=== PATIENT | female | born 1945 | race Caucasian/White ===

== ENCOUNTER → 2017-02-14 | Day surgery (SDC) | payer MEDICARE ==
[~2017-02-14] MED LIST: ALPRAZolam 0.25 MG TAB PO STA; HYDROmorphone 1 MG/ML 1 ML SYRINGE IVP STA; INSULIN LISPRO (humaLOG) 300 UNIT/3 ML VIAL SQ ONE
[2017-02-14 09:54] VITALS: TEMP 98.1
[2017-02-14 10:07] LABS: Prothrombin Time 10.4 sec (9.0-12.0)
[2017-02-14 11:37] LABS: Glucose,Whole Blood 331 mg/dL (75-99)
[2017-02-14 12:11] VITALS: RESP 20
[2017-02-14 15:14] VITALS: BP 134/59; PULSE 80
--- NOTE | 2017-02-14 15:30 | US ---
EXAMINATION TYPE: US biopsy liver DATE OF EXAM: 02/14/2017 10:42 AM Correlation with outside CT abdomen pelvis. HISTORY: Liver mass. FINDINGS: Maximal barrier technique was utilized. The skin overlying a suitable path to the patient' s mass was localized with ultrasound and the overlying skin prepped and draped. Ultrasound was utili zed with sterile technique. Lidocaine was used for local anesthesia. A skin leif was made with a sc alpel. An 18-gauge needle was advanced under direct ultrasound guidance and core specimen obtained o f the mass, an additional pass was made. Specimens submitted in formalin to Pathology. Following th e procedure, hemostasis achieved and the patient is discharged in stable condition without complicati on. Impression: status POST ULTRASOUND GUIDED CORE BIOPSY OF liver MASS, PATHOLOGY IS PENDING. THIS PROC EDURE IS PERFORMED BY THE UNDERSIGNED.
== END ==
LOC: RADPROMAIN 08:44
PROVIDERS: ATTEND Internal Medicine Medical Oncology
DX: C22.7 Other specified carcinomas of liver (principal); C18.9 Malignant neoplasm of colon, unspecified; E11.42 Type 2 diabetes mellitus with diabetic polyneuropathy; Z79.4 Long term (current) use of insulin; E78.00 Pure hypercholesterolemia, unspecified; I10 Essential (primary) hypertension; I69.354 Hemiplegia and hemiparesis following cerebral infarction affecting left non-dominant side; G47.30 Sleep apnea, unspecified; Z99.89 Dependence on other enabling machines and devices; N17.9 Acute kidney failure, unspecified; Z80.0 Family history of malignant neoplasm of digestive organs; Z79.02 Long term (current) use of antithrombotics/antiplatelets; Z79.82 Long term (current) use of aspirin; Z79.899 Other long term (current) drug therapy; Z91.040 Latex allergy status; Z88.0 Allergy status to penicillin; Z91.013 Allergy to seafood; Z88.8 Allergy status to other drugs, medicaments and biological substances; Z91.09 Other allergy status, other than to drugs and biological substances
CPT/HCPCS: 82947; 85049; 85610; 88342; 88307; 88341; 96374; 36415; 47000; 76942; J1170

== ENCOUNTER 2019-05-19 13:56 | Inpatient (IN) | payer MEDICARE ==
[2019-05-19] MEDS ORDERED: MORPHINE SULFATE 4 MG/ML SYRINGE IV STA ×2 (14:38→16:51)
--- NOTE | 2019-05-19 14:43 | ED ---
General Adult HPI - General Chief complaint: Extremity Problem,Nontraumatic Stated complaint: Right leg pain Time Seen by Provider: 05/19/19 14:03 Source: patient, RN notes reviewed, old records reviewed (Reviewed [place] record and radiology results and medications.) Mode of arrival: wheelchair Limitations: no limitations - History of Present Illness Initial comments: Patient is a pleasant 73-year-old female presenting to the emergency department as a transfer from [place]. Patient complains of right leg pain. Onset of symptoms was around 5 days ago. Symptoms have worsened today. Pain is constant. Pain increases with movement and attempting to ambulate. Patient finds it very difficult to ambulate. No fevers. Patient did go to a clinic couple of days ago and was given antibiotics for a scratch on her foot. Patient was not very concerned about the scratch and was not clear for the scratch. Patient states discomfort did start mostly of the lower extremity and extended up to the mid thigh, somewhat the hip. No chest pain or dyspnea. No fevers. - Related Data Home Medications Medication Instructions Recorded Confirmed Aspirin 81 mg PO DAILY 03/04/14 05/19/19 Carvedilol [Coreg*] 12.5 mg PO BID 03/04/14 05/19/19 Clopidogrel [Plavix] 75 mg PO DAILY 03/04/14 05/19/19 Potassium Chloride ER [K-Dur 20] 20 meq PO DAILY 03/04/14 05/19/19 Primidone [Mysoline] 50 mg PO DAILY 03/04/14 05/19/19 Cyanocobalamin (Vitamin B-12) 2,000 mcg PO DAILY 02/07/17 05/19/19 [Vitamin B-12] Spironolactone-Hctz 25-25Mg 1 tab PO DAILY 02/07/17 05/19/19 [Aldactazide 25-25 MG] metFORMIN HCL 1,000 mg PO BID 02/07/17 05/19/19 Clindamycin [Cleocin] 300 mg PO TID 05/19/19 05/19/19 Furosemide [Lasix] 40 mg PO BID 05/19/19 05/19/19 HYDROcodone/APAP 5-325MG [[place] 1 tab PO DAILY PRN 05/19/19 05/19/19 5-325] Insulin Aspart [NovoLOG] See Protocol SQ AC-TID 05/19/19 05/19/19 Insulin Detemir (Levemir) [Levemir] 36 unit SQ BID 05/19/19 05/19/19 Multivitamins, Thera [Multivitamin 1 tab PO DAILY 05/19/19 05/19/19 (formulary)] [place]-3 Fatty Acids [[place]-3] 1,000 mg PO DAILY 05/19/19 05/19/19 Vitamin C/Biotin [Hair, Skin and 1 tab PO DAILY 05/19/19 05/19/19 Nails] Allergies Allergy/AdvReac Type Severity Reaction Status Date / Time latex Allergy Rash/Hives Verified 05/19/19 14:57 levofloxacin [From Levaquin] Allergy SEVERE Verified 05/19/19 14:57 MUSCLE PAIN losartan [Losartan] Allergy Rash/Hives Verified 05/19/19 14:57 Penicillins Allergy Rash/Hives Verified 05/19/19 14:57 shellfish derived Allergy Itching Verified 05/19/19 14:57 Sulfa (Sulfonamide Allergy Rash/Hives Verified 05/19/19 14:57 Antibiotics) ADHESIVE TAPE Allergy PEELS SKIN Uncoded 05/19/19 14:06 steroids AdvReac Severe SEVERE Uncoded 05/19/19 14:06 PAIN AFTER SHE STOPS TAKING. martin AdvReac Rash/Hives Uncoded 05/19/19 14:06 Review of Systems ROS Statement: Those systems with pertinent positive or pertinent negative responses have been documented in the HPI. ROS Other: All systems not noted in ROS Statement are negative. Constitutional: Denies: fever Eyes: Denies: eye pain ENT: Denies: ear pain Respiratory: Denies: cough, dyspnea Cardiovascular: Denies: chest pain Endocrine: Denies: fatigue Gastrointestinal: Denies: abdominal pain Genitourinary: Denies: dysuria Musculoskeletal: Reports: as per HPI. Denies: back pain Skin: Denies: rash Neurological: Denies: weakness Past Medical History Past Medical History: Coronary Artery Disease (CAD), Cancer, Chest Pain / Angina, CVA/TIA, Diabetes Mellitus, Hyperlipidemia, Hypertension, Myocardial Infarction ([place]), Osteoarthritis (OA), Sleep Apnea/CPAP/BIPAP Additional Past Medical History / Comment(s): HX OF CVA WITH LEFT SIDED WEAKNESS , BALANCE PROBLEMS & HX OF FALLS., ESSSENTIAL TREMORS, USES CANE. , HX OF PERITONITIS FROM RUPTURED OVARY., NOT USING C-PAP DUE TO ALLERGIES., BACK PAIN, ANEMIA, STRESS INCONTINENCE., NEW DIAGNOSIS OF BOWEL CANCER. Last Myocardial Infarction Date:: 2007 History of Any Multi-Drug Resistant Organisms: None Reported Past Surgical History: Appendectomy, Back Surgery, Heart Catheterization With Stent, Hysterectomy, Joint Replacement, Tonsillectomy Additional Past Surgical History / Comment(s): UGO KNEE REPLACEMENT, HT STENT X1, EXPLORATORY FOR RUPTURED OVARY.ANTERIOR RESECTION Past Anesthesia/Blood Transfusion Reactions: No Reported Reaction Additional Past Anesthesia/Blood Transfusion Reaction / Comment(s): HALLUCINATIONS AFTER BACK SURGERY. STATES SHE HAD [place] DUE TO BLOOD TRANSFUSION Date of Last Stent Placement:: 02/2014 Past Psychological History: No Psychological Hx Reported, Depression Smoking Status: Former smoker Past Alcohol Use History: None Reported Past Drug Use History: None Reported - Past Family History Father Family Medical History: Cancer, Thyroid Disorder Additional Family Medical History / Comment(s): COLON CANCER, HASHIMOTOS,ENLARGED HEART Mother Family Medical History: Diabetes Mellitus, Deep Vein Thrombosis (DVT), Thyroid Disorder Additional Family Medical History / Comment(s): HASHIMOTOS Sister(s) Family Medical History: Cancer, Congestive Heart Failure (CHF) Additional Family Medical History / Comment(s): BREAST CANCER Brother(s) Family Medical History: Cancer Additional Family Medical History / Comment(s): COLON CANCER General Exam Limitations: no limitations General appearance: alert, in no apparent distress Head exam: Present: atraumatic Eye exam: Present: normal appearance Neck exam: Present: normal inspection Respiratory exam: Present: normal lung sounds bilaterally Cardiovascular Exam: Present: regular rate, normal rhythm Expanded Peripheral pulses: 2+: Dorsalis Pedis (R), Dorsalis Pedis (L) GI/Abdominal exam: Present: soft. Absent: tenderness Extremities exam: Present: other (Patient does have tenderness majority of right lower leg and extends to the posterior mid thigh. No significant change in size from the left side. There may be a very faint amount of erythema of the medial calf region. Cap refill less than 2 seconds. Sensation intact. Strength intact. Minimal bony tenderness right lateral hip. Majority of tenderness is soft tissue.) Back exam: Present: normal inspection Neurological exam: Present: alert. Absent: motor sensory deficit Psychiatric exam: Present: normal affect, normal mood Skin exam: Present: erythema (Minimal erythema right medial calf region) Course Vital Signs 05/19/19 05/19/19 05/19/19 14:02 15:49 18:47 Temperature 99 F 97.6 F 98.8 F Pulse Rate 80 77 72 Respiratory 16 18 18 Rate Blood Pressure 116/73 116/68 119/88 O2 Sat by Pulse 94 L 93 L 94 L Oximetry - Reevaluation(s) Reevaluation #1: 05/19/19 16:49 Patient still complain of discomfort. Ultrasound negative for DVT. Family updated. Case was discussed with Dr. charles, who agrees with computed tomography scan and would like to see results prior to considering admission. 05/19/19 19:36 Patient reevaluated. Patient and family updated. Case was discussed with Dr. Jacinto, who will admit for observation for pain control and does recommend antibiotics. He will come evaluate patient. Medical Decision Making - Lab Data Result diagrams: 05/19/19 14:30 05/19/19 14:30 Lab Results 05/19/19 05/19/19 Range/Units 14:30 14:30 WBC 9.6 (3.8-10.6) k/uL RBC 3.97 (3.80-5.40) m/uL Hgb 12.4 (11.4-16.0) gm/dL Hct 38.3 (34.0-46.0) % MCV 96.5 (80.0-100.0) fL MCH 31.3 (25.0-35.0) pg MCHC 32.4 (31.0-37.0) g/dL RDW 15.6 H (11.5-15.5) % Plt Count 255 (150-450) k/uL Neutrophils % 75 % Lymphocytes % 16 % Monocytes % 6 % Eosinophils % 2 % Basophils % 0 % Neutrophils # 7.1 (1.3-7.7) k/uL Lymphocytes # 1.5 (1.0-4.8) k/uL Monocytes # 0.6 (0-1.0) k/uL Eosinophils # 0.2 (0-0.7) k/uL Basophils # 0.0 (0-0.2) k/uL Sodium 137 (137-145) mmol/L Potassium 3.0 L (3.5-5.1) mmol/L Chloride 88 L (98-107) mmol/L Carbon Dioxide 34 H (22-30) mmol/L Anion Gap 15 mmol/L BUN 49 H (7-17) mg/dL Creatinine 1.59 H (0.52-1.04) mg/dL Est GFR (CKD-EPI)AfAm 37 (>60 ml/min/1.73 sqM) Est GFR (CKD-EPI)NonAf 32 (>60 ml/min/1.73 sqM) Glucose 287 H (74-99) mg/dL Uric Acid 14.5 H (3.7-7.4) mg/dL Calcium 10.3 H (8.4-10.2) mg/dL Total Bilirubin 0.8 (0.2-1.3) mg/dL AST 28 (14-36) U/L ALT 30 (9-52) U/L Alkaline Phosphatase 118 (38-126) U/L Total Protein 7.6 (6.3-8.2) g/dL Albumin 4.6 (3.5-5.0) g/dL - Radiology Data Radiology results: report reviewed (Ultrasound negative for DVT. Computed tomography scan of the lower extremity does mild to moderate subcutaneous edema along the lateral malleolus with mild edema along the medial malleolus. Mild edema of the hindfoot) Disposition Clinical Impression: Leg pain, Cellulitis Disposition: ADMITTED IP TO THIS HOSP Is patient prescribed a controlled substance at d/c from ED?: No Referrals: David Hogan MD [Primary Care Provider] - 1-2 days Decision Time: 19:45
--- NOTE | 2019-05-19 15:31 | US ---
EXAMINATION TYPE: US venous doppler duplex LE RT DATE OF EXAM: 05/19/2019 3:20 PM COMPARISON: NONE CLINICAL HISTORY: Pain. Right leg pain and swelling SIDE PERFORMED: Right TECHNIQUE: The lower extremity deep venous system is examined utilizing real time linear array sonog katie with graded compression, doppler sonography and color-flow sonography. VESSELS IMAGED: External Iliac Vein (EIV) Common Femoral Vein Deep Femoral Vein Greater Saphenous Vein * Femoral Vein Popliteal Vein Small Saphenous Vein * Proximal Calf Veins (* superficial vessels) Right Leg: Negative for DVT Grayscale, color doppler, spectral doppler imaging performed of the deep veins of the right lower ext remity. There is normal flow, compressibility, vascular waveforms. IMPRESSION: No ultrasound evidence for acute DVT in the right lower extremity.
[2019-05-19] MEDS ORDERED: diphenhydrAMINE 50 MG/ML 1 ML VIAL IVP STA (16:49)
[2019-05-19] MEDS ORDERED: SODIUM CHLORIDE 0.9% 1,000 ML IV STA (16:49)
[2019-05-19] MEDS ORDERED: FAMOTIDINE 20 MG/2 ML VIAL IV STA (16:49)
[2019-05-19] MEDS ORDERED: methylPREDNISolone SOD SUCCI 125 MG/2 ML VIAL IV STA (16:49)
[2019-05-19 17:08] LABS: Basophils % (A) 0 %; Eosinophils # (A) 0.2 k/uL (0-0.7); Eosinophils % (A) 2 %; HCT 38.3 % (34.0-46.0); HGB 12.4 gm/dL (11.4-16.0); Lymphocytes # (A) 1.5 k/uL (1.0-4.8); Lymphocytes % (A) 16 %; MCH 31.3 pg (25.0-35.0); MCHC 32.4 g/dL (31.0-37.0); MCV 96.5 fL (80.0-100.0); Mean Platelet Volume 7.4; Monocytes # (A) 0.6 k/uL (0-1.0); Monocytes % (A) 6 %; Neutrophils # (A) 7.1 k/uL (1.3-7.7); Neutrophils % (A) 75 %; Platelet Count 255 k/uL (150-450); RBC 3.97 m/uL (3.80-5.40); RDW 15.6 % (11.5-15.5); WBC 9.6 k/uL (3.8-10.6)
[2019-05-19 17:40] LABS: Albumin 4.6 g/dL (3.5-5.0); Calcium 10.3 mg/dL (8.4-10.2); Total Bilirubin 0.8 mg/dL (0.2-1.3); Total Protein 7.6 g/dL (6.3-8.2); Uric Acid 14.5 mg/dL (3.7-7.4)
[2019-05-19] MEDS ORDERED: HYDROmorphone 1 MG/ML 1 ML SYRINGE IVP STA (18:37)
--- NOTE | 2019-05-19 19:07 | CT ---
EXAMINATION TYPE: CT lower extremity RT wo con DATE OF EXAM: 05/19/2019 COMPARISON: None. HISTORY: RIGHT LEG SWELLING AND REDNESS, CT DLP: 1694.9 mGycm Automated exposure control for dose reduction was used. FINDINGS: CT of the right lower extremity is performed from hip to ankle. Metallic hardware from total right kn ee arthroplasty causes streak artifact limiting evaluation at this level. No suspicious surrounding l ucency identified. Moderate axial joint space loss with mild acetabular spurring is seen in the right hip. Right ankle joint felt within normal limits. No suspicious bony destruction. Muscle bulk in the right lower extremity is fairly well maintained. No concerning focal fluid collect ion is present. Mild to moderate subcutaneous edema along the lateral malleolus with mild edema along the medial malleolus. Mild edema visualized hindfoot along inferior calcaneus. IMPRESSION: As above.
[2019-05-19] MEDS ORDERED: NALOXONE 0.4 MG/ML 1 ML VIAL IV PRN (19:46)
[2019-05-19] MEDS ORDERED: POTASSIUM CHLORIDE ER 20 MEQ TAB.ER PO STA (19:58)
[2019-05-19] MEDS ORDERED: CLINDAMYCIN 600 MG in DEXTROSE 5% IN WATER 50 ML IVPB SCH ×2 (20:00)
[2019-05-19 20:31] LABS: C Reactive Protein 177.3 mg/L (<10.0)
[2019-05-19] MEDS: SODIUM CHLORIDE 0.9% 1,000 ML IV SCH (21:20)
--- NOTE | 2019-05-19 22:34 | P.HPIM ---
History of Present Illness H&P Date: 05/19/19 Chief Complaint: right foot pain 73 year old female with metastatic colon cancer s/p chemotherapy , long standing Insulin dependant DM, hypertension Presented today as a transfer from [facility] to rule out DVT due to positive D dimer. patient has had right foot pain for >5 days now getting worse, described as sharp pain with walking or weight bearing over the bottom of her foot and the dorsal aspect of her foot, but pain started radiating over the back of her leg all the way to her thigh and hip. pain worse in the morning first thing when she gets up, denies any reliving factors. this has never happened before and she denies any injuries Patient reports that pain started on Tuesday in the morning it was hurting over the right foot described the pain as 6 out of 10 in severity involving only the right foot from the bottom and top she rested all day avoided weightbearing next day she felt that both feet are hurting now 8 out of 10 in severity sharp pain worse with weightbearing and walking she started using a cane however she was able to go shopping that day pain got worse by the time she got back home she couldn't sleep all night and patient decided to go to walk-in clinic where they found an abrasion over the sole of the left foot for which they gave her antibiotics however at that point her pain was only in the right foot she took couple doses and then stopped it she didn't feel that she needs antibiotics she denies any fevers or chills denies any drainage denies any injury to the foot. Since the pain is mainly in the right foot described as 8 out of 10 in severity waxes and wanes now radiating over the back of the leg up to the thigh and hip patient has chronic numbness over bilateral legs never took any medications for neuropathy she can move her foot fine but cannot weight-bear or stand she describes the pain as throbbing in nature 8 out of 10 in severity mainly over the right foot from both top and bottom no specific spot. Of maximum intensity. Never had similar pain before denies any injuries or walking long distances. Today she woke up from sleep got up and collapsed immediately due to severe pain went to [facility] refund positive d-dimer for which she transferred her to our facility to rule out DVT. The only incident that she recalls that the night before the pain started was a very hot night returned on the before meals all night she had her foot exposed and woke up feeling that the foot is really cold and that's when the pain started. In the ED workup came back showing acute kidney injury and hypokalemia creatine kinase was unremarkable. She had elevated C-reactive protein no leukocytosis patient received a dose of clindamycin in the ED. Computed tomography scan of the leg was nonspecific. Venous ultrasound of the right lower extremity showed no acute DVT Review of Systems Pertinent positives as noted in HPI. All other systems were reviewed and are negative Past Medical History Past Medical History: Coronary Artery Disease (CAD), Cancer, Chest Pain / Angina, CVA/TIA, Diabetes Mellitus, Hyperlipidemia, Hypertension, Myocardial Infarction ([place]), Osteoarthritis (OA), Sleep Apnea/CPAP/BIPAP Additional Past Medical History / Comment(s): HX OF CVA WITH LEFT SIDED WEAKNESS , BALANCE PROBLEMS & HX OF FALLS., ESSSENTIAL TREMORS, USES CANE. , HX OF PERITONITIS FROM RUPTURED OVARY., NOT USING C-PAP DUE TO ALLERGIES., BACK PAIN, ANEMIA, STRESS INCONTINENCE., NEW DIAGNOSIS OF BOWEL CANCER. Last Myocardial Infarction Date:: 2007 History of Any Multi-Drug Resistant Organisms: None Reported Past Surgical History: Appendectomy, Back Surgery, Heart Catheterization With Stent, Hysterectomy, Joint Replacement, Tonsillectomy Additional Past Surgical History / Comment(s): UGO KNEE REPLACEMENT, HT STENT X1, EXPLORATORY FOR RUPTURED OVARY.ANTERIOR RESECTION Past Anesthesia/Blood Transfusion Reactions: No Reported Reaction Additional Past Anesthesia/Blood Transfusion Reaction / Comment(s): HALLUCINATIONS AFTER BACK SURGERY. STATES SHE HAD [place] DUE TO BLOOD TRANSFUSION Date of Last Stent Placement:: 02/2014 Past Psychological History: No Psychological Hx Reported, Depression Smoking Status: Former smoker Past Alcohol Use History: None Reported Past Drug Use History: None Reported - Past Family History Father Family Medical History: Cancer, Thyroid Disorder Additional Family Medical History / Comment(s): COLON CANCER, HASHIMOTOS,ENLARGED HEART Mother Family Medical History: Diabetes Mellitus, Deep Vein Thrombosis (DVT), Thyroid Disorder Additional Family Medical History / Comment(s): HASHIMOTOS Sister(s) Family Medical History: Cancer, Congestive Heart Failure (CHF) Additional Family Medical History / Comment(s): BREAST CANCER Brother(s) Family Medical History: Cancer Additional Family Medical History / Comment(s): COLON CANCER Medications and Allergies Home Medications Medication Instructions Recorded Confirmed Type Aspirin 81 mg PO DAILY 03/04/14 05/19/19 History Carvedilol [Coreg*] 12.5 mg PO BID 03/04/14 05/19/19 History Clopidogrel [Plavix] 75 mg PO DAILY 03/04/14 05/19/19 History Potassium Chloride ER [K-Dur 20] 20 meq PO DAILY 03/04/14 05/19/19 History Primidone [Mysoline] 50 mg PO DAILY 03/04/14 05/19/19 History Cyanocobalamin (Vitamin B-12) 2,000 mcg PO DAILY 02/07/17 05/19/19 History [Vitamin B-12] Spironolactone-Hctz 25-25Mg 1 tab PO DAILY 02/07/17 05/19/19 History [Aldactazide 25-25 MG] metFORMIN HCL 1,000 mg PO BID 02/07/17 05/19/19 History Clindamycin [Cleocin] 300 mg PO TID 05/19/19 05/19/19 History Furosemide [Lasix] 40 mg PO BID 05/19/19 05/19/19 History HYDROcodone/APAP 5-325MG [[place] 1 tab PO DAILY PRN 05/19/19 05/19/19 History 5-325] Insulin Aspart [NovoLOG] See Protocol SQ AC-TID 05/19/19 05/19/19 History Insulin Detemir (Levemir) [Levemir] 36 unit SQ BID 05/19/19 05/19/19 History Multivitamins, Thera [Multivitamin 1 tab PO DAILY 05/19/19 05/19/19 History (formulary)] [place]-3 Fatty Acids [[place]-3] 1,000 mg PO DAILY 05/19/19 05/19/19 History Vitamin C/Biotin [Hair, Skin and 1 tab PO DAILY 05/19/19 05/19/19 History Nails] Allergies Allergy/AdvReac Type Severity Reaction Status Date / Time latex Allergy Rash/Hives Verified 05/19/19 14:57 levofloxacin [From Levaquin] Allergy SEVERE Verified 05/19/19 14:57 MUSCLE PAIN losartan [Losartan] Allergy Rash/Hives Verified 05/19/19 14:57 Penicillins Allergy Rash/Hives Verified 05/19/19 14:57 shellfish derived Allergy Itching Verified 05/19/19 14:57 Sulfa (Sulfonamide Allergy Rash/Hives Verified 05/19/19 14:57 Antibiotics) ADHESIVE TAPE Allergy PEELS SKIN Uncoded 05/19/19 14:06 steroids AdvReac Severe SEVERE Uncoded 05/19/19 14:06 PAIN AFTER SHE STOPS TAKING. martin AdvReac Rash/Hives Uncoded 05/19/19 14:06 Physical Exam Vitals: Vital Signs Temp Pulse Resp BP Pulse Ox 05/19/19 19:56 99.0 F 78 16 164/87 99 05/19/19 18:47 98.8 F 72 18 119/88 94 L 05/19/19 15:49 97.6 F 77 18 116/68 93 L 05/19/19 14:02 99 F 80 16 116/73 94 L Intake and Output 05/19/19 05/19/19 05/19/19 06:59 14:59 22:59 Other: Weight 131.542 kg Constitutional: No acute distress, conversant, pleasant Eyes: Anicteric sclerae, moist conjunctiva, no lid-lag Pupils equal round reactive to light ENMT: NC/AT Oropharynx clear, no erythema, or exudates Neck: Supple, FROM, no masses, or JVD No carotid bruits No thyromegaly Lungs: Clear to auscultation Clear to percussion Normal respiratory effort, no accessory muscle use Cardiovascular: Heart regular in rate and rhythm, Systolic murmurs, no gallops, or rubs No peripheral edema Abdominal: Soft Nontender, no guarding, rebound or rigidity Abdomen moving with respiration Normoactive bowel sounds No hepatomegaly, No splenomegaly No palpable mass No abdominal wall hernia noted Skin: Palpable port over the left anterior chest under the skin Normal temperature, tone, texture, turgor No induration No subcutaneous nodules No rash, lesions No ulcers Extremities: Multiple point tenderness over the sole of the right foot, could not definitely rule out Castellanos's neuroma No digital cyanosis No clubbing Pedal pulses intact and symmetrical Radial pulses intact and symmetrical No calf tenderness Psychiatric: Alert and oriented to person, place and time Depressed affect fair judgment Neuro Muscles Strength 4/5 in all 4 extremities Sensation to light touch grossly present throughout Cranial nerves II-XII grossly intact No focal sensory deficits Straight leg raising was negative Lymphatics: no palpable cervical or supraclavicular , or inguinal lymph nodes Results CBC & Chem 7: 05/19/19 14:30 05/19/19 14:30 Labs: Abnormal Lab Results - Last 24 Hours (Table) 05/19/19 05/19/19 05/19/19 Range/Units 14:30 14:30 14:30 RDW 15.6 H (11.5-15.5) % Potassium 3.0 L (3.5-5.1) mmol/L Chloride 88 L (98-107) mmol/L Carbon Dioxide 34 H (22-30) mmol/L BUN 49 H (7-17) mg/dL Creatinine 1.59 H (0.52-1.04) mg/dL Glucose 287 H (74-99) mg/dL Uric Acid 14.5 H (3.7-7.4) mg/dL Calcium 10.3 H (8.4-10.2) mg/dL Creatine Kinase 219 H (30-135) U/L C-Reactive Protein 177.3 H (<10.0) mg/L Assessment and Plan Assessment: 73-year-old female with history of CHF, diabetes, metastaticcolon cancer, admitted under observation with anticipated length of stay less than 48 hours due to intractable pain of her right leg which is thought due to peripheral neuropathy versus plantar fasciitis we'll attempt pain control and consider referral to podiatry in the morningupon discharge Plan: intractable right foot pain diffrential include castellanos neuroma, vs plantar fasciitis , vs peripheral neuropathy pain control observation over night referral to podiatry check CK monitor vital signs for any sings of fever or systemic response started on neurontin could not start NSAID due to SILVER Patient received a dose of clindamycin in the ED I will discontinue antibiotics at this time acute kidney injury pre renal ATN most likely avoid nephrotoxic meds hold diuretics IVF hydration hypokalemia replace and follow up level follow up Mg chronic conditions hypertension , continue home meds DM, insulin sliding scale CHF metastatic colon cancer chronic anemia asthma continue home meds DVT pPx , heparin sc tid PT evaluation follow up labs CODE STATUS:full code Discussed with: Patient, ER, RN Anticipated discharge: <[address]: home A total of 60 minutes was spent on the care of this complex patient more than 50% of the time was spent in counseling and care coordination.
[2019-05-19 23:08] VITALS: BMI 44.1
[2019-05-19 23:12] LABS: Glucose,Whole Blood 585 mg/dL (75-99)
[2019-05-19] MEDS: HEPARIN SODIUM,PORCINE 5,000 UNIT/ML 1 ML VIAL SQ SCH (23:15)
[2019-05-19] MEDS: CARVEDILOL 12.5 MG TAB PO SCH (23:15)
[2019-05-19] MEDS: INSULIN DETEMIR (LEVEMIR) 100 UNIT/ML SYR SQ SCH (23:15)
[2019-05-19] MEDS: GABAPENTIN 300 MG CAP PO SCH (23:15)
[2019-05-19] MEDS ORDERED: INSULIN ASPART (NovoLOG) 100 UNIT/ML VIAL SQ ONE (23:31)
[2019-05-20] MEDS: HYDROmorphone 1 MG/ML 1 ML SYRINGE IVP PRN ×2 (02:00→07:28)
[2019-05-20 02:06] LABS: Glucose,Whole Blood 599 mg/dL (75-99)
[2019-05-20 02:06] LABS: Glucose,Whole Blood 587 mg/dL (75-99)
[2019-05-20] MEDS ORDERED: INSULIN ASPART (NovoLOG) 100 UNIT/ML VIAL SQ ONE (02:12)
[2019-05-20 05:28] LABS: Glucose,Whole Blood 462 mg/dL (75-99)
[2019-05-20 07:10] LABS: Glucose,Whole Blood 441 mg/dL (75-99)
[2019-05-20 07:25] LABS: Basophils % (A) 0 %; Eosinophils % (A) 0 %; HGB 10.8 gm/dL (11.4-16.0); Lymphocytes # (A) 1.2 k/uL (1.0-4.8); Lymphocytes % (A) 15 %; MCH 31.4 pg (25.0-35.0); MCHC 31.8 g/dL (31.0-37.0); MCV 98.9 fL (80.0-100.0); Macrocytosis Slight; Mean Platelet Volume 7.5; Monocytes # (A) 0.4 k/uL (0-1.0); Monocytes % (A) 5 %; Neutrophils # (A) 6.3 k/uL (1.3-7.7); Neutrophils % (A) 78 %; Platelet Count 227 k/uL (150-450); RBC 3.44 m/uL (3.80-5.40); RDW 15.7 % (11.5-15.5)
[2019-05-20] MEDS: HEPARIN SODIUM,PORCINE 5,000 UNIT/ML 1 ML VIAL SQ SCH ×3 (07:27→23:29)
[2019-05-20] MEDS: ASPIRIN 81 MG PO SCH (07:27)
[2019-05-20] MEDS: CLOPIDOGREL 75 MG TAB PO SCH (07:27)
[2019-05-20] MEDS: CARVEDILOL 12.5 MG TAB PO SCH ×2 (07:27→17:09)
[2019-05-20] MEDS: POTASSIUM CHLORIDE ER 20 MEQ TAB.ER PO SCH (07:28)
[2019-05-20] MEDS: PRIMIDONE 50 MG TAB PO SCH (07:28)
[2019-05-20 07:34] LABS: Albumin 3.7 g/dL (3.5-5.0); Potassium 4.2 mmol/L (3.5-5.1); Total Bilirubin 0.5 mg/dL (0.2-1.3); Total Protein 6.4 g/dL (6.3-8.2)
[2019-05-20] MEDS: INSULIN DETEMIR (LEVEMIR) 100 UNIT/ML SYR SQ SCH ×2 (07:41→20:31)
[2019-05-20] MEDS: PANTOPRAZOLE 40 MG/10 ML VIAL IV SCH (07:42)
[2019-05-20] MEDS: INSULIN ASPART (NovoLOG) 100 UNIT/ML VIAL SQ SCH ×4 (07:42→20:30)
[2019-05-20] MEDS: SODIUM CHLORIDE 0.9% 1,000 ML IV SCH ×3 (07:47→19:43)
[2019-05-20 09:21] LABS: Uric Acid 14.2 mg/dL (3.7-7.4)
--- NOTE | 2019-05-20 09:35 | P.PN ---
Subjective Progress Note Date: 05/20/19 Patient reports that she is feeling better today after being started on some medication to control her right lower extremity/foot pain. Patient stated when she stood up today she did not felt the severe pain in her right foot which she always felt for the past 8-9 months and which has gotten worse in the past week or so. Patient did complain of having some burning on urination but denied frequency, urgency of urination and denied fever chills. During the conversation patient started weeping and stating that she has gone through a lot of stress lately and was mentioning including but not limiting to her son's divorce and her cancer with metastasis to the liver and being on chemotherapy for it. Patient had multiple other stressors which she mentioned and was crying. She stated that she sees a group where she gets benefit from her stresses. Patient denies chest pain, palpitation, diaphoresis, nausea, vomiting, headaches, dizziness and denies rest of the review of system. On review of patient's blood work it was noted that patient blood sugar is now slightly getting better and gait he is under 500. Her acute kidney injury which was noted to have BUN 49 and creatinine 1.59 and today after IV hydration and holding oral Lasix is 53/1.52 respectively. Objective - Vital Signs Vital signs: Vital Signs Temp 98.7 F 05/20/19 07:58 Pulse 77 05/20/19 07:58 Resp 17 05/20/19 07:58 BP 116/60 05/20/19 07:58 Pulse Ox 93 L 05/20/19 07:58 Intake & Output 05/19/19 05/20/19 05/20/19 18:59 06:59 18:59 Intake Total 1590 400 Balance 1590 400 Weight 131.542 kg Intake: Intake, IV Titration 1000 Amount Sodium Chloride 0.9% 1, 1000 000 ml @ 125 mls/hr IV . Q8H [facility] Rx#:[id number] Oral 590 400 Other: Voiding Method Toilet Toilet Bedside Commode Bedside Commode # Voids 1 - Constitutional General appearance: Present: cooperative, no acute distress - EENT Eyes: Present: EOMI, normal appearance ENT: Present: hearing grossly normal, NA/AT - Neck Neck: Present: normal ROM. Absent: lymphadenopathy, stridor - Respiratory Respiratory: bilateral: CTA, negative: rales, rhonchi, wheezing - Cardiovascular Rhythm: regular Heart sounds: normal: S1, S2 Abnormal Heart Sounds: Present: systolic murmur - Gastrointestinal General gastrointestinal: Present: normal bowel sounds, soft. Absent: distended, rigid, tenderness - Psychiatric Psychiatric Comment(s): Patient appears depressed and was weeping during the interview. Psychiatric: Present: A&O x's 3, intact judgment & insight - Allied health notes Allied health notes reviewed: nursing - Labs CBC & Chem 7: 05/20/19 06:47 05/20/19 06:47 Labs: Abnormal Lab Results - Last 24 Hours (Table) 05/19/19 05/19/19 05/19/19 Range/Units 14:30 14:30 14:30 RBC (3.80-5.40) m/uL Hgb (11.4-16.0) gm/dL RDW 15.6 H (11.5-15.5) % Sodium (137-145) mmol/L Potassium 3.0 L (3.5-5.1) mmol/L Chloride 88 L (98-107) mmol/L Carbon Dioxide 34 H (22-30) mmol/L BUN 49 H (7-17) mg/dL Creatinine 1.59 H (0.52-1.04) mg/dL Glucose 287 H (74-99) mg/dL POC Glucose (mg/dL) (75-99) mg/dL Uric Acid 14.5 H (3.7-7.4) mg/dL Calcium 10.3 H (8.4-10.2) mg/dL Creatine Kinase 219 H (30-135) U/L C-Reactive Protein 177.3 H (<10.0) mg/L 05/19/19 05/20/19 05/20/19 Range/Units 23:10 02:02 02:04 RBC (3.80-5.40) m/uL Hgb (11.4-16.0) gm/dL RDW (11.5-15.5) % Sodium (137-145) mmol/L Potassium (3.5-5.1) mmol/L Chloride (98-107) mmol/L Carbon Dioxide (22-30) mmol/L BUN (7-17) mg/dL Creatinine (0.52-1.04) mg/dL Glucose (74-99) mg/dL POC Glucose (mg/dL) 585 H 599 H 587 H (75-99) mg/dL Uric Acid (3.7-7.4) mg/dL Calcium (8.4-10.2) mg/dL Creatine Kinase (30-135) U/L C-Reactive Protein (<10.0) mg/L 05/20/19 05/20/19 05/20/19 Range/Units 05:27 06:47 06:47 RBC 3.44 L (3.80-5.40) m/uL Hgb 10.8 L (11.4-16.0) gm/dL RDW 15.7 H (11.5-15.5) % Sodium 135 L (137-145) mmol/L Potassium (3.5-5.1) mmol/L Chloride 94 L (98-107) mmol/L Carbon Dioxide 31 H (22-30) mmol/L BUN 53 H (7-17) mg/dL Creatinine 1.52 H (0.52-1.04) mg/dL Glucose 456 H (74-99) mg/dL POC Glucose (mg/dL) 462 H (75-99) mg/dL Uric Acid (3.7-7.4) mg/dL Calcium (8.4-10.2) mg/dL Creatine Kinase (30-135) U/L C-Reactive Protein (<10.0) mg/L 05/20/19 Range/Units 07:03 RBC (3.80-5.40) m/uL Hgb (11.4-16.0) gm/dL RDW (11.5-15.5) % Sodium (137-145) mmol/L Potassium (3.5-5.1) mmol/L Chloride (98-107) mmol/L Carbon Dioxide (22-30) mmol/L BUN (7-17) mg/dL Creatinine (0.52-1.04) mg/dL Glucose (74-99) mg/dL POC Glucose (mg/dL) 441 H (75-99) mg/dL Uric Acid (3.7-7.4) mg/dL Calcium (8.4-10.2) mg/dL Creatine Kinase (30-135) U/L C-Reactive Protein (<10.0) mg/L - Imaging and Cardiology Venous US: report reviewed Assessment and Plan (1) Leg pain Current Visit: Yes Status: Acute Code(s): M79.606 - PAIN IN LEG, UNSPECIFIED SNOMED Code(s): 09953993 (2) Acute renal failure (ARF) Current Visit: Yes Status: Acute Priority: High Code(s): N17.9 - ACUTE KIDNEY FAILURE, UNSPECIFIED SNOMED Code(s): 08948120 (3) Diabetes mellitus type 2 in obese Current Visit: Yes Status: Acute Priority: High Code(s): E11.69 - TYPE 2 DIABETES MELLITUS WITH OTHER SPECIFIED COMPLICATION; E66.9 - OBESITY, UNSPECIFIED SNOMED Code(s): 05853831 (4) Hyperuricemia Current Visit: Yes Status: Acute Priority: High Code(s): E79.0 - HYPERURICEMIA W/O SIGNS OF INFLAM ARTHRIT AND TOPHACEOUS DIS SNOMED Code(s): 58694982 (5) Dependent edema Current Visit: Yes Status: Acute Priority: High Code(s): R60.9 - EDEMA, UNSPECIFIED SNOMED Code(s): 279046519 (6) Heart failure with preserved ejection fraction Current Visit: No Status: Acute Priority: Medium Code(s): I50.30 - UNSPECIFIED DIASTOLIC (CONGESTIVE) HEART FAILURE SNOMED Code(s): 343244899 (7) Colon cancer Current Visit: No Status: Acute Priority: Medium Code(s): C18.9 - MALIGNAN T NEOPLASM OF COLON, UNSPECIFIED SNOMED Code(s): 811978874 Plan: Patient right foot pain is improving with Neurontin in place. She is able to walk without severe pain and it was recommended to her to continue activity as tolerated. I will continue Neurontin at the time of discharge. Patient was counseled regarding coping with her depression and stressors in life and recommended mental health consultation which she accepted. We will consult psychiatry for the management of depression. Patient's renal function is not getting better despite of IV hydration and holding her diuretics. I will consult nephrology for their input in patient's renal condition. I will continue IV hydration for now patient's most recent echo was reported to have 55-60% ejection fraction and severe left atrial dilatation with mitral stenosis. I will check patient's uric acid level and magnesium level again. Patient did reported that her pain is going on for more than 8-9 months in her right leg and foot but nobody was paying attention and now since this new medication is a started her pain is getting better and she is much relieved. Patient blood sugar was monitored and sliding scale insulin was continued. Patient's sugars are slightly getting better she did receive 1 dose of methylprednisolone last night and her sugars were around 600 which is now improving. Patient hemoglobin was 12.4 at the time of admission and now 10.8 after IV hydration will monitor it. I will continue other medication as it is. Patient did complain of burning in urination for which urine analysis and culture and sensitivity if indicated will be sent. If patient continues to improve then patient will be discharged tomorrow on oral pain management with Neurontin. Time with Patient: Greater than 30 (Total time spent 45 minutes, more than 50% time was spent in counseling to overcome her depression and to seek help.)
[2019-05-20 11:23] LABS: Glucose,Whole Blood 413 mg/dL (75-99)
[2019-05-20 13:19] LABS: Appearance,Urine Cloudy (Clear); Bilirubin,Urine Negative (Negative); Blood,Urine Moderate (Negative); Color,Urine Yellow; Glucose,Urine (UA) 4+ (Negative); Ketones,Urine Negative (Negative); Leukocyte Esterase,Urine Large (Negative); Nitrite,Urine Negative (Negative); Protein,Urine 1+ (Negative); RBC,Urine 19 /hpf (0-5); Specific Gravity,Urine 1.019 (1.001-1.035); Squamous Epithelial Cell,Urine 1 /hpf (0-4); Urobilinogen,Urine <2.0 mg/dL (<2.0); WBC,Urine >182 /hpf (0-5)
[2019-05-20 16:55] LABS: Glucose,Whole Blood 249 mg/dL (75-99)
[2019-05-20 20:05] LABS: Glucose,Whole Blood 189 mg/dL (75-99)
[2019-05-20] MEDS: GABAPENTIN 300 MG CAP PO SCH (20:30)
[2019-05-21] MEDS: HYDROmorphone 1 MG/ML 1 ML SYRINGE IVP PRN ×2 (05:18→13:00)
[2019-05-21 06:48] LABS: Glucose,Whole Blood 142 mg/dL (75-99)
[2019-05-21] MEDS: CLOPIDOGREL 75 MG TAB PO SCH (07:34)
[2019-05-21] MEDS: HEPARIN SODIUM,PORCINE 5,000 UNIT/ML 1 ML VIAL SQ SCH ×2 (07:34→17:54)
[2019-05-21] MEDS: ASPIRIN 81 MG PO SCH (07:34)
[2019-05-21] MEDS: POTASSIUM CHLORIDE ER 20 MEQ TAB.ER PO SCH (07:34)
[2019-05-21] MEDS: PANTOPRAZOLE 40 MG/10 ML VIAL IV SCH (07:34)
[2019-05-21] MEDS: CARVEDILOL 12.5 MG TAB PO SCH ×2 (07:34→17:54)
[2019-05-21] MEDS: INSULIN ASPART (NovoLOG) 100 UNIT/ML VIAL SQ SCH ×4 (07:35→21:23)
[2019-05-21] MEDS: INSULIN DETEMIR (LEVEMIR) 100 UNIT/ML SYR SQ SCH ×2 (07:35→21:23)
[2019-05-21] MEDS: PRIMIDONE 50 MG TAB PO SCH (07:36)
[2019-05-21] MEDS: SODIUM CHLORIDE 0.9% 1,000 ML IV SCH (07:49)
[2019-05-21] MEDS ORDERED: FUROSEMIDE 10 MG/ML 2 ML VIAL IV ONE (09:29)
--- NOTE | 2019-05-21 09:34 | P.PN ---
Subjective Progress Note Date: 05/21/19 Today patient reports that she is not feeling better she is having pain all over the body and she is not ready to go home nor is willing to go home. Patient stated that she came for this issues of pain all over the body and pain of her feet she is able to walk better as her feet pain is slightly better but her rest of the pain is continuously there. Patient was weeping again during the interview today. She stated that psychiatrist has not seen her as of now. Patient also stated that she had gained 14 pounds weight since she had weighed her last about a week to 10 days ago. Patient was seen by the content architect Dr. Pete and his recommendations were appreciated. Patient denies chest pain, palpitation, headache, dizziness, nausea, vomiting she did complains of the chronic constipation and requests something to relieve her it but denies rest of the review system. Objective - Vital Signs Vital signs: Vital Signs Temp 97.5 F L 05/21/19 05:00 Pulse 65 05/21/19 05:00 Resp 16 05/21/19 05:00 BP 148/80 05/21/19 05:00 Pulse Ox 95 05/21/19 05:00 Intake & Output 05/20/19 05/21/19 05/21/19 18:59 06:59 18:59 Intake Total 800 840 Output Total 600 Balance 200 840 Intake: Intake, IV Titration 250 Amount Sodium Chloride 0.9% 1, 250 000 ml @ 125 mls/hr IV . Q8H [facility] Rx#:[id number] Oral 800 590 Output: Urine 600 Other: Voiding Method Toilet Toilet Bedside Commode Bedside Commode # Voids 2 3 - Constitutional General appearance: Present: cooperative, mild distress (Due to pain all over the body as felt by her.) - EENT Eyes: Present: EOMI, normal appearance - Neck Neck: Present: normal ROM. Absent: lymphadenopathy, rigidity - Respiratory Respiratory: bilateral: CTA, negative: rales, rhonchi, wheezing - Cardiovascular Rhythm: regular Heart sounds: normal: S1, S2 Abnormal Heart Sounds: Absent: systolic murmur, diastolic murmur, S3 Gallop, S4 Gallop - Gastrointestinal General gastrointestinal: Present: normal bowel sounds. Absent: distended, rigid, soft, tenderness - Neurologic Neurologic: Present: CNII-XII intact. Absent: focal deficits - Psychiatric Psychiatric: Present: A&O x's 3, intact judgment & insight. Absent: appropriate affect - Allied health notes Allied health notes reviewed: nursing - Labs CBC & Chem 7: 05/20/19 06:47 05/20/19 06:47 Labs: Abnormal Lab Results - Last 24 Hours (Table) 05/20/19 05/20/19 05/20/19 Range/Units 06:47 11:21 12:35 POC Glucose (mg/dL) 413 H (75-99) mg/dL Uric Acid 14.2 H (3.7-7.4) mg/dL Urine Appearance Cloudy H (Clear) Urine Protein 1+ H (Negative) Urine Glucose (UA) 4+ H (Negative) Urine Blood Moderate H (Negative) Ur Leukocyte Esterase Large H (Negative) Urine RBC 19 H (0-5) /hpf Urine WBC >182 H (0-5) /hpf Urine WBC Clumps Many H (None) /hpf 05/20/19 05/20/19 05/21/19 Range/Units 16:54 20:04 06:46 POC Glucose (mg/dL) 249 H 189 H 142 H (75-99) mg/dL Uric Acid (3.7-7.4) mg/dL Urine Appearance (Clear) Urine Protein (Negative) Urine Glucose (UA) (Negative) Urine Blood (Negative) Ur Leukocyte Esterase (Negative) Urine RBC (0-5) /hpf Urine WBC (0-5) /hpf Urine WBC Clumps (None) /hpf Microbiology - Last 24 Hours (Table) 05/19/19 21:05 Blood Culture - Preliminary Blood No Growth after 24 hours 05/20/19 12:35 Urine Culture - Preliminary Urine,Clean Catch Assessment and Plan (1) Leg pain Current Visit: Yes Status: Acute Priority: High Code(s): M79.606 - PAIN IN LEG, UNSPECIFIED SNOMED Code(s): 37446552 (2) Acute renal failure (ARF) Current Visit: Yes Status: Acute Priority: High Code(s): N17.9 - ACUTE KIDNEY FAILURE, UNSPECIFIED SNOMED Code(s): 87968444 (3) Diabetes mellitus type 2 in obese Current Visit: Yes Status: Acute Priority: High Code(s): E11.69 - TYPE 2 DIABETES MELLITUS WITH OTHER SPECIFIED COMPLICATION; E66.9 - OBESITY, UNSPECIFIED SNOMED Code(s): 17812951 (4) Hyperuricemia Current Visit: Yes Status: Acute Priority: High Code(s): E79.0 - HYPERURICEMIA W/O SIGNS OF INFLAM ARTHRIT AND TOPHACEOUS DIS SNOMED Code(s): 07240551 (5) Dependent edema Current Visit: Yes Status: Acute Priority: High Code(s): R60.9 - EDEMA, UNSPECIFIED SNOMED Code(s): 802477003 (6) Heart failure with preserved ejection fraction Current Visit: No Status: Acute Priority: Medium Code(s): I50.30 - UNSPECIFIED DIASTOLIC (CONGESTIVE) HEART FAILURE SNOMED Code(s): 525797770 (7) Colon cancer Current Visit: No Status: Acute Priority: Medium Code(s): C18.9 - MALIGNANT NEOPLASM OF COLON, UNSPECIFIED SNOMED Code(s): 773554773 Plan: Patient admission will be changed to full admit and this was communicated to case management who already changed gait to full admit. As recommended by the content architect Dr. Pete patient basic metabolic panel will be checked to reassess renal functions. As this could be a new baseline for her. I will discontinue IV fluids and give her one time dose of Lasix 20 mg IV push and check basic panel at 6 PM tonight. I will also change the dose of Neurontin 200 mg twice daily and keep Dilaudid as needed, although she has used only once in the past 24 hours. In my opinion patient will be greatly benefited from psychiatric evaluation and treatment of her depression and that will help significantly towards her recovery process from medical conditions. A lot of counseling was done to the patient although initially was not well taken by her but later on she accepted that she will need help for the management of her depression. I will continue to follow. Time with Patient: Greater than 30 (Total time spent was 45 minutes and more than 50% time was spent in counseling.)
[2019-05-21 09:36] LABS: Calcium 9.2 mg/dL (8.4-10.2); Potassium 3.5 mmol/L (3.5-5.1)
--- NOTE | 2019-05-21 09:47 | P.NPCON ---
History of Present Illness - Reason for Consult acute renal failure - History of Present Illness Reason for consultation: Acute kidney injury History of present illness: Patient is a 73-year-old female seen in renal consultation for acute kidney injury. Patient's creatinine in August 2016 was 0.84. This admission is 1.59 and is down to 1.3 today. Patient presented to the hospital with pain in her r ight lower extremity. There is no evidence of DVT. Patient admits to tenderness in both her lower extremities. She has been voiding. No hematuria or dysuria. Oral intake is fair. No vomiting or diarrhea. Currently maintained on normal saline at 1 25 mL an hour. Patient does have history of c olon cancer and has undergone partial bowel resection as well as chemotherapy for 18 months which was completed in March 2018. Patient does have long-standing history of diabetes mellitus. Patient states she was diagnosed with diabetes about 50 years ago. She is currently on antibiotics for UTI. Patient states her sister was also diabetic and required renal replacement therapy. She is now . Vital signs are stable. General: The patient appeared well nourished and normally developed. HEENT: Head exam is unremarkable. Neck is without jugular venous distension. LUNGS: Lungs are clear to auscultation and percussion. Breath sounds decreased. HEART: Rate and Rhythm are regular. First and second heart sounds normal. No murmurs, rubs or gallops. ABDOMEN: Abdominal exam reveals normal bowel sounds. Non-tender and non- distended. No evidence of peritonitis. EXTREMITITES: 1+ edema. Lower extremities tender to touch. Past Medical History Past Medical History: Coronary Artery Disease (CAD), Cancer, Chest Pain / Angina, Heart Failure, CVA/TIA, Diabetes Mellitus, Hyperlipidemia, Hypertension, Myocardial Infarction (SD), Osteoarthritis (OA), Sleep Apnea/CPAP/BIPAP Additional Past Medical History / Comment(s): HX OF CVA WITH LEFT SIDED WEAKNESS, BALANCE PROBLEMS & HX OF FALLS., ESSSENTIAL TREMORS, USES CANE. , HX OF PERITONITIS FROM RUPTURED OVARY., NOT USING C-PAP DUE TO ALLERGIES., BACK PAIN, ANEMIA, STRESS INCONTINENCE., NEW DIAGNOSIS OF BOWEL CANCER. Last Myocardial Infarction Date:: 2007 History of Any Multi-Drug Resistant Organisms: None Reported Past Surgical History: Appendectomy, Back Surgery, Heart Catheterization With Stent, Hysterectomy, Joint Replacement, Orthopedic Surgery, Tonsillectomy Additional Past Surgical History / Comment(s): UGO KNEE REPLACEMENT, HT STENT X1, EXPLORATORY FOR RUPTURED OVARY.ANTERIOR RESECTION, lower lumbar Surgery Past Anesthesia/Blood Transfusion Reactions: No Reported Reaction Additional Past Anesthesia/Blood Transfusion Reaction / Comment(s): HALLUCINATIONS AFTER BACK SURGERY. STATES SHE HAD SD DUE TO BLOOD TRANSFUSION Date of Last Stent Placement:: 02/2014 Past Psychological History: No Psychological Hx Reported, Depression Smoking Status: Former smoker Past Alcohol Use History: None Reported Additional Past Alcohol Use History / Comment(s): SMOKED FOR 7 YEARS TEENAGER AND EARLY 20'S. Past Drug Use History: None Reported - Past Family History Father Family Medical History: Cancer, Thyroid Disorder Additional Family Medical History / Comment(s): COLON CANCER, ARMEN S,ENLARGED HEART Mother Family Medical History: Diabetes Mellitus, Deep Vein Thrombosis (DVT), Thyroid Disorder Additional Family Medical History / Comment(s): HASHIMOTOS Sister(s) Family Medical History: Cancer, Congestive Heart Failure (CHF) Additional Family Medical History / Comment(s): BREAST CANCER Brother(s) Family Medical History: Cancer Additional Family Medical History / Comment(s): COLON CANCER Medications and Allergies Home Medications Medication Instructions Recorded Confirmed Type Aspirin 81 mg PO DAILY 03/04/14 05/19/19 History Carvedilol [Coreg*] 12.5 mg PO BID 03/04/14 05/19/19 History Clopidogrel [Plavix] 75 mg PO DAILY 03/04/14 05/19/19 History Potassium Chloride ER [K-Dur 20] 20 meq PO DAILY 03/04/14 05/19/19 History Primidone [Mysoline] 50 mg PO DAILY 03/04/14 05/19/19 History Cyanocobalamin (Vitamin B-12) 2,000 mcg PO DAILY 02/07/17 05/19/19 History [Vitamin B-12] Spironolactone-Hctz 25-25Mg 1 tab PO DAILY 02/07/17 05/19/19 History [Aldactazide 25-25 MG] metFORMIN HCL 1,000 mg PO BID 02/07/17 05/19/19 History Clindamycin [Cleocin] 300 mg PO TID 05/19/19 05/19/19 History Furosemide [Lasix] 40 mg PO BID 05/19/19 05/19/19 History HYDROcodone/APAP 5-325MG [Axton 1 tab PO DAILY PRN 05/19/19 05/19/19 History 5-325] Insulin Aspart [NovoLOG] See Protocol SQ AC-TID 05/19/19 05/19/19 History Insulin Detemir (Levemir) [Levemir] 36 unit SQ BID 05/19/19 05/19/19 History Multivitamins, Thera [Multivitamin 1 tab PO DAILY 05/19/19 05/19/19 History (formulary)] [place]-3 Fatty Acids [Day[place]-3] 1,000 mg PO DAILY 05/19/19 05/19/19 History Vitamin C/Biotin [Hair, Skin and 1 tab PO DAILY 05/19/19 05/19/19 History Nails] Allergies Allergy/AdvReac Type Severity Reaction Status Date / Time latex Allergy Rash/Hives Verified 05/19/19 14:57 levofloxacin [From Levaquin] Allergy SEVERE Verified 05/19/19 14:57 MUSCLE PAIN losartan [Losartan] Allergy Rash/Hives Verified 05/19/19 14:57 Penicillins Allergy Rash/Hives Verified 05/19/19 14:57 shellfish derived Allergy Itching Verified 05/19/19 14:57 Sulfa (Sulfonamide Allergy Rash/Hives Verified 05/19/19 14:57 Antibiotics) ADHESIVE TAPE Allergy PEELS SKIN Uncoded 05/19/19 14:06 steroids AdvReac Severe SEVERE Uncoded 05/19/19 14:06 PAIN AFTER SHE STOPS TAKING. martin AdvReac Rash/Hives Uncoded 05/19/19 14:06 Physical Exam Vitals: Vital Signs Temp Pulse Resp BP Pulse Ox 05/21/19 05:00 97.5 F L 65 16 148/80 95 05/20/19 21:09 97.6 F 65 16 115/63 92 L 05/20/19 13:04 96.9 F L 68 17 103/51 96 Intake and Output 05/20/19 05/21/19 05/21/19 22:59 06:59 14:59 Intake Total 650 590 Balance 650 590 Intake: Intake, IV Titration 250 Amount Sodium Chloride 0.9% 1, 250 000 ml @ 125 mls/hr IV . Q8H [facility] Rx#:[id number] Oral 400 590 Other: Voiding Method Toilet Toilet Bedside Commode Bedside Commode # Voids 3 Results - Lab Results Most recent lab results Calcium 9.2 mg/dL (8.4-10.2) 05/21/19 09:03 Magnesium 2.0 mg/dL (1.6-2.3) 05/20/19 06:47 05/20/19 06:47 05/21/19 09:03 Assessment and Plan Plan: Assessment: 1. Acute kidney injury mostly prerenal improving with IV hydration. Creatinine was 1.59 on admission and is 1.3 today. Creatinine was 0.84 in August 2016. 2. Rule out chronic kidney disease. 3. Insulin-dependent diabetes mellitus. 4. Proteinuria. This is most likely secondary to underlying diabetic kidney disease. Will need to be further worked up outpatient. 5. Volume overload. 6. Hypokalemia from poor oral intake. Now also on diuretics. Magnesium normal. Plan: Hep-Lock IV fluids. IV Lasix 20 mg once today. Maintain potassium supplementation. Torsemide 5 mg daily upon discharge. Repeat BMP and magnesium level in 2-3 days postdischarge. Follow up outpatient in the next 1-2 weeks. Thank you for the consultation. I will continue to follow the patient with you during her hospital stay.
[2019-05-21 11:29] LABS: Glucose,Whole Blood 141 mg/dL (75-99)
[2019-05-21] MEDS: GABAPENTIN 100 MG CAP PO SCH ×2 (12:52→21:23)
[2019-05-21 16:58] LABS: Glucose,Whole Blood 220 mg/dL (75-99)
--- NOTE | 2019-05-21 17:03 | P.PN ---
Progress Note - Text Progress Note Date: 05/21/19 Nurse called this check writer that the patient's , son and [id number] are here and they would like to talk to the doctor about patient's care and further management. A family meeting was conducted in the patient's room with the patient's verbal consent. Patient's son has concerned about the patient's safety at home as when at home she is often times neglecting her medical care and not taking her medications. It was also reported that patient at times purposely and voluntarily do not eat her meals and her sugar goes very low. He also reported that at home both parents are nitpicking a lot and in his state of constant arguments. He specifically stated there is no physical abuse or risk is there but due to constant argument he thinks she voluntarily quit taking her medications and meals. It was explained to the family that when I have sat with the patient twice yesterday and a half noted that patient is depressed and offered her psychiatrist referral and treatment for depression if indicated, initially patient refused but later on after lot of education and counseling she accepted. Spent more than 60 minutes in counseling of the patient and their family members educating them about patient's safety and decreasing the chances of arguments between this process. It was recommended that as patient has duplex home and they're arm [address] and with her neuropathy there is increased risk of falls and injury, it was recommended about the possibility of moving into her range is time home with no area rugs and well lighted rooms. Patient did agree with this recommendation. Also discussed about the patient's neuropathy, unsteadiness and her involvement with the physical and occupational therapy and options of home with home care and home therapy along with home with outpatient therapy and the option of subacute rehabilitation were discussed in detail. Patient was advised to involve herself in the rehabilitation process here in the hospital and depending upon her progress further recommendation will be made. At the end of the meeting all questions were answered appropriately, meeting was scheduled after that.
--- NOTE | 2019-05-21 17:39 | P.CN ---
Psychiatric Consult - . 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 Patient was transferred from [facility] for right leg pain to rule out DVT. Patient was noted to have crying spells and spoke of depression to medical team therefore psychiatry was consulted. Patient was seen this afternoon in her bed and appeared to be tearful. Patient spoke of her 3 long years dealing with her cancer treatment and all the ups and downs. She states that she was diagnosed in August 2016 and that's when she received surgery, colectomy however was soon later found to have stage IV colon cancer which metastasized to her liver. Patient states that she has undergone 18 months of chemotherapy which just finished in March which were really tough on her. She also states that she's been dealing with her sister dying in 2016 which really impacted her. She claims that she also misses her grandchildren as she used to see them more often however her son her [id number] and she has limited contact with the kids. She also spoke of adjusting to not being able to help out as much around the house and claims that her is not very understanding. She states that she's been overwhelmed with stress and feeling depressed, very tearful over the past few months. She describes protective factors as God her sons and her is really reasons to keep on fighting cancer and staying positive. She denies any suicidal or homicidal ideations intent or plan and she denies any auditory or visual hallucinations. She does not endorse any paranoia or delusions. She states that her sleep has been decreased lately sleeping from 9 PM to 4 AM her appetite is fair. PAST PSYCHIATRIC History; she denies ever being seen by a psychiatrist in the past however was on Cymbalta for mood and pain previously however claims that it was not effective. She denies any previous psychiatric hospitalizations in the diet denies any suicide attempts in the past. ALLERGIES: As per EMR CHEMICAL DEPENDENCY HISTORY: Denies FAMILY PSYCHIATRIC HISTORY: Denies FAMILY CHEMICAL DEPENDENCY HISTORY: Denies LEGAL HISTORY: denies. SOCIAL HISTORY: Patient was born and raised in [facility] and moved to [place], she states that she completed high school and has some college courses. 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 MENTAL STATUS EXAM: General Appearance: Patient appears to be stated age is alert, pleasant, and cooperative. Patient was lying in bed, obese and in moderate distress secondary to pain. Behavior: Lying in bed no agitation Speech: Patient's speech is fluent and nonpressured. Mood/Affect: Patient reports their mood is depressed, affect is congruent and constricted Suicidality/Homicidality: Patient denies having any suicidal or homicidal ideation intent or plan. Perceptions: Patient denies any auditory or visual hallucinations. Though content/process: There is no evidence of any delusional thought content and thought process is linear and goal-directed. Memory and concentration: AOX3, grossly intact for the purposes of this session. Can spell "WORLD" backwards Judgment and insight: fair IMPRESSIONS: Major depressive disorder, moderate PLAN: -At this time patient patient does NOT meet criteria for inpatient psychiatric admission. -Would recommend the following medication changes/additions: Started on mirtazapine 15 mg daily at bedtime for insomnia and mood. -Offered support, empathy and validation during encounter. Discussed with patient the various stressors and different coping skills and ways to manage and improve communication with her family. -Will continue to follow along -cut out worker to provide patient with resources for counseling/therapy options near patient's community. Patient willing to commit to counseling/therapy to assist her with life stressors and adjustment issues. Thank you for the consult, please call [phone] with any questions 05/21/19 17:33
[2019-05-21 18:40] LABS: Calcium 9.6 mg/dL (8.4-10.2); Potassium 3.8 mmol/L (3.5-5.1)
[2019-05-21 20:03] LABS: Glucose,Whole Blood 243 mg/dL (75-99)
[2019-05-21] MEDS ORDERED: MIRTAZAPINE 15 MG TAB PO SCH (21:00)
[2019-05-22] MEDS: HEPARIN SODIUM,PORCINE 5,000 UNIT/ML 1 ML VIAL SQ SCH ×4 (01:06→23:35)
[2019-05-22] MEDS: INSULIN ASPART (NovoLOG) 100 UNIT/ML VIAL SQ SCH ×4 (07:29→20:25)
[2019-05-22] MEDS: INSULIN DETEMIR (LEVEMIR) 100 UNIT/ML SYR SQ SCH ×2 (08:36→20:25)
[2019-05-22] MEDS: POTASSIUM CHLORIDE ER 20 MEQ TAB.ER PO SCH (08:37)
[2019-05-22] MEDS: PANTOPRAZOLE 40 MG TABLET PO SCH (08:37)
[2019-05-22] MEDS: CLOPIDOGREL 75 MG TAB PO SCH (08:37)
[2019-05-22] MEDS: GABAPENTIN 100 MG CAP PO SCH ×2 (08:37→20:25)
[2019-05-22] MEDS: CARVEDILOL 12.5 MG TAB PO SCH ×2 (08:40→17:36)
[2019-05-22] MEDS: ASPIRIN 81 MG PO SCH (08:40)
[2019-05-22 08:41] LABS: Calcium 9.7 mg/dL (8.4-10.2); Magnesium 1.9 mg/dL (1.6-2.3); Potassium 3.9 mmol/L (3.5-5.1)
[2019-05-22] MEDS: PRIMIDONE 50 MG TAB PO SCH (08:41)
[2019-05-22] MEDS ORDERED: TORSEMIDE 20 MG TAB PO SCH (09:00)
--- NOTE | 2019-05-22 10:10 | P.PN ---
Subjective Patient is seen in follow-up for acute kidney injury. Patient's creatinine in August 2016 was 0.84. This admission it was 1.59 and is down to 1.07 today. Admits to good urine output. No vomiting or diarrhea. Oral intake is good. Vital signs are stable. General: The patient appeared well nourished and normally developed. HEENT: Head exam is unremarkable. Neck is without jugular venous distension. LUNGS: Lungs are clear to auscultation and percussion. Breath sounds decreased. HEART: Rate and Rhythm are regular. First and second heart sounds normal. No murmurs, rubs or gallops. ABDOMEN: Abdominal exam reveals normal bowel sounds. Non-tender and non- distended. No evidence of peritonitis. EXTREMITITES: 1+ edema. Objective - Vital Signs Vital signs: Vital Signs Temp 97.9 F 05/22/19 07:29 Pulse 88 05/22/19 07:29 Resp 16 05/22/19 07:29 BP 150/75 05/22/19 07:29 Pulse Ox 97 05/22/19 07:29 Intake & Output 05/21/19 05/22/19 05/22/19 18:59 06:59 18:59 Intake Total 900 240 Balance 900 240 Weight 139 kg Intake: Intake, IV Titration 900 Amount Sodium Chloride 0.9% 1, 850 000 ml @ 125 mls/hr IV . Q8H HAYDEN Rx#:[id number] cefTRIAXone 1 gm In 50 Sodium Chloride 0.9% 50 ml @ 100 mls/hr IVPB Q24HR HAYDEN Rx#:[id number] Oral 240 Other: Voiding Method Bedside Commode Bedside Commode Bedside Commode # Voids 4 2 # Bowel Movements 1 - Labs CBC & Chem 7: 05/20/19 06:47 05/22/19 07:49 Labs: Abnormal Lab Results - Last 24 Hours (Table) 05/21/19 05/21/19 05/21/19 Range/Units 11:27 16:56 18:00 Carbon Dioxide (22-30) mmol/L BUN 39 H (7-17) mg/dL Creatinine 1.08 H (0.52-1.04) mg/dL Glucose 202 H (74-99) mg/dL POC Glucose (mg/dL) 141 H 220 H (75-99) mg/dL 05/21/19 05/22/19 Range/Units 20:02 07:49 Carbon Dioxide 31 H (22-30) mmol/L BUN 29 H (7-17) mg/dL Creatinine 1.07 H (0.52-1.04) mg/dL Glucose 121 H (74-99) mg/dL POC Glucose (mg/dL) 243 H (75-99) mg/dL Microbiology - Last 24 Hours (Table) 05/19/19 21:05 Blood Culture - Preliminary Blood No Growth after 48 hours 05/20/19 12:35 Urine Culture - Preliminary Urine,Clean Catch Gram Neg Bacilli Assessment and Plan Plan: Assessment: 1. Acute kidney injury mostly prerenal improving with IV hydration. Creatinine was 1.59 on admission and is 1.07 today. Creatinine was 0.84 in August 2016. 2. Rule out chronic kidney disease. 3. Insulin-dependent diabetes mellitus. 4. Proteinuria. This is most likely secondary to underlying diabetic kidney disease. Will need to be further worked up outpatient. 5. Volume overload. 6. Hypokalemia from poor oral intake. Now also on diuretics. Magnesium normal. Improved. Plan: Increase torsemide to 10 mg once daily. I advised patient to follow a low-salt diet. She was also advised to weigh herself daily and to increase torsemide to 20 mg daily if has more than 3 pound weight gain or worsening of edema. Repeat BMP and magnesium level in 2-3 days postdischarge. Follow up outpatient in the next 1-2 weeks.
--- NOTE | 2019-05-22 10:14 | P.PN ---
Progress Note - Text Progress Note Date: 05/22/19 Interval History: Patient was seen at bedside this morning and was agreeable to speak to administrative underwriter. Patient was appropriate and appeared to be less tearful today. Patient states that she slept "like a rock" and felt that she was not able to move in her bed which made her uncomfortable. Patient states that the medication dose may be too strong. Discussed with patient the side effects along with the Leticia fits and risks of the medication and patient verbally understood. Patient states that her mood is unchanged at this time and would like to give the medication a longer trial. Patient claims that she is eating well and reports fair energy. At this time patient denies any suicidal or homical ideations, intent or plan. Patient denies any auditory, visual hallucinations and denies any paranoia or delusions. MENTAL STATUS EXAM: General Appearance: Patient appears to be stated age is alert, pleasant, and cooperative. Patient was lying in bed, obese and in no acute distress Behavior: Lying in bed no agitation Speech: Patient's speech is fluent and nonpressured. Mood/Affect: Patient reports their mood is down, affect is congruent and constricted Suicidality/Homicidality: Patient denies having any suicidal or homicidal ideation intent or plan. Perceptions: Patient denies any auditory or visual hallucinations. Though content/process: There is no evidence of any delusional thought content and thought process is linear and goal-directed. Memory and concentration: AOX3, grossly intact for the purposes of this session. Can spell "WORLD" backwards Judgment and insight: fair IMPRESSIONS: Major depressive disorder, moderate PLAN: -At this time patient patient does NOT meet criteria for inpatient psychiatric admission. -Will decrease mirtazapine to 7.5 mg daily at bedtime for insomnia and mood. -Offered support, empathy and validation during encounter. -Will continue to follow along -size worker to provide patient with resources for counseling/therapy options near patient's community. Patient willing to commit to counseling/therapy to assist her with life stressors and adjustment issues.
--- NOTE | 2019-05-22 11:14 | P.PN ---
Subjective Progress Note Date: 05/22/19 Today patient reports feeling much better especially after the family meeting yesterday evening. She stated that her has been now realized about patient's illness and limitation and they have talked about moving into a smaller single level home. She reports that her leg pain and pain all over the body is still there but is slightly getting better. Patient is working with the physical therapy and they recommended subacute rehabilitation. She is currently walking with a wheeled walker and one person assist. Patient denies chest pain, shortness breath, palpitation, headache, dizziness and denies rest of the review system. Objective - Vital Signs Vital signs: Vital Signs Temp 97.9 F 05/22/19 07:29 Pulse 88 05/22/19 07:29 Resp 16 05/22/19 07:29 BP 150/75 05/22/19 07:29 Pulse Ox 97 05/22/19 07:29 Intake & Output 05/21/19 05/22/19 05/22/19 18:59 06:59 18:59 Intake Total 900 240 Balance 900 240 Weight 139 kg Intake: Intake, IV Titration 900 Amount Sodium Chloride 0.9% 1, 850 000 ml @ 125 mls/hr IV . Q8H HAYDEN Rx#:[id number] cefTRIAXone 1 gm In 50 Sodium Chloride 0.9% 50 ml @ 100 mls/hr IVPB Q24HR HAYDEN Rx#:[id number] Oral 240 Other: Voiding Method Bedside Commode Bedside Commode Bedside Commode # Voids 4 2 # Bowel Movements 1 - Constitutional General appearance: Present: cooperative, no acute distress - EENT Eyes: Present: EOMI, normal appearance ENT: Present: hearing grossly normal - Neck Neck: Present: normal ROM. Absent: lymphadenopathy, thyromegaly - Respiratory Respiratory: bilateral: CTA, negative: rales, rhonchi, wheezing - Cardiovascular Rhythm: regular Heart sounds: normal: S1, S2 Abnormal Heart Sounds: Present: systolic murmur - Gastrointestinal General gastrointestinal: Present: normal bowel sounds, soft. Absent: distended, rigid, tenderness - Neurologic Neurologic: Present: CNII-XII intact. Absent: focal deficits - Psychiatric Psychiatric: Present: A&O x's 3, appropriate affect, intact judgment & insight - Allied health notes Allied health notes reviewed: nursing - Labs CBC & Chem 7: 05/20/19 06:47 05/22/19 07:49 Labs: Abnormal Lab Results - Last 24 Hours (Table) 05/21/19 05/21/19 05/21/19 Range/Units 11:27 16:56 18:00 Carbon Dioxide (22-30) mmol/L BUN 39 H (7-17) mg/dL Creatinine 1.08 H (0.52-1.04) mg/dL Glucose 202 H (74-99) mg/dL POC Glucose (mg/dL) 141 H 220 H (75-99) mg/dL 05/21/19 05/22/19 Range/Units 20:02 07:49 Carbon Dioxide 31 H (22-30) mmol/L BUN 29 H (7-17) mg/dL Creatinine 1.07 H (0.52-1.04) mg/dL Glucose 121 H (74-99) mg/dL POC Glucose (mg/dL) 243 H (75-99) mg/dL Microbiology - Last 24 Hours (Table) 05/19/19 21:05 Blood Culture - Preliminary Blood No Growth after 48 hours 05/20/19 12:35 Urine Culture - Preliminary Urine,Clean Catch Gram Neg Bacilli Assessment and Plan (1) Leg pain Current Visit: Yes Status: Acute Priority: High Code(s): M79.606 - PAIN IN LEG, UNSPECIFIED SNOMED Code(s): 72922586 (2) Acute renal failure (ARF) Current Visit: Yes Status: Acute Priority: High Code(s): N17.9 - ACUTE KIDNEY FAILURE, UNSPECIFIED SNOMED Code(s): 42222841 (3) Diabetes mellitus type 2 in obese Current Visit: Yes Status: Acute Priority: High Code(s): E11.69 - TYPE 2 DIABETES MELLITUS WITH OTHER SPECIFIED COMPLICATION; E66.9 - OBESITY, UNSPECIFIED SNOMED Code(s): 21094072 (4) Hyperuricemia Current Visit: Yes Status: Acute Priority: High Code(s): E79.0 - HYPERURICEMIA W/O SIGNS OF INFLAM ARTHRIT AND TOPHACEOUS DIS SNOMED Code(s): 06225744 (5) Dependent edema Current Visit: Yes Status: Acute Priority: High Code(s): R60.9 - EDEMA, UNSPECIFIED SNOMED Code(s): 949694027 (6) Heart failure with preserved ejection fraction Current Visit: No Status: Acute Priority: Medium Code(s): I50.30 - UNSPECIFIED DIASTOLIC (CONGESTIVE) HEART FAILURE SNOMED Code(s): 227564429 (7) Colon cancer Current Visit: No Status: Acute Priority: Medium Code(s): C18.9 - MALIGNANT NEOPLASM OF COLON, UNSPECIFIED SNOMED Code(s): 221202614 (8) Depression Current Visit: Yes Status: Acute Priority: High Code(s): F32.9 - MAJOR DEPRESSIVE DISORDER, SINGLE EPISODE, UNSPECIFIED SNOMED Code(s): 71889018 Plan: I will continue current management for the patient. Agree with decreasing the dose of Remeron due to patient's drowsiness this morning. Patient will be completing 72 hours of acute care hospitalization by tomorrow and care coordinated with social media marketer and case management along with the patient for possible subacute rehabilitation transfer for short-term rehabilitation. And then patient was go home and will work with her for downsizing the home to a single level drainage type living arrangements. As mentioned earlier I had a long family meeting lasting for about an hour last night with the patient and with her verbal consent with her her son and [id number] in the room. Please refer to my family meeting note from last night. Patient was counseled regarding compliance with the medication management and recommendation from the physician and follow them. She verbalizes understanding and we'll try her best to follow the for recommendations. Time with Patient: Less than 30
[2019-05-22 11:22] LABS: Glucose,Whole Blood 241 mg/dL (75-99)
--- NOTE | 2019-05-22 15:55 | XR ---
EXAMINATION TYPE: XR chest 1V DATE OF EXAM: 05/22/2019 COMPARISON: NONE HISTORY: Facility placement TECHNIQUE: Single frontal view of the chest is obtained. FINDINGS: There is no focal air space opacity, pleural effusion, or pneumothorax seen. The cardiac silhouette size is within normal limits. The osseous structures are intact. Left-sided central cath eter noted with tip overlying the SVC. Atherosclerotic change aorta and cardiomegaly. Arthropathy of the shoulders. IMPRESSION: 1. Cardiomegaly
[2019-05-22 17:04] LABS: Glucose,Whole Blood 277 mg/dL (75-99)
[2019-05-22 20:15] LABS: Glucose,Whole Blood 195 mg/dL (75-99)
[2019-05-22] MEDS ORDERED: MIRTAZAPINE 15 MG TAB PO SCH (21:00)
[2019-05-22 21:28] VITALS: PULSE 63; RESP 18
[2019-05-22] MEDS ORDERED: MAG HYDROX/AL HYDROX/SIMETH 30 ML CUP PO PRN (23:23)
[2019-05-22] MEDS ORDERED: FAMOTIDINE 20 MG TAB PO STA (23:23)
[2019-05-23] MEDS ORDERED: ACETAMINOPHEN TAB 325 MG TAB PO PRN (03:38)
[2019-05-23 05:01] VITALS: BP 150/80; TEMP 97.3
[2019-05-23 07:11] LABS: Glucose,Whole Blood 115 mg/dL (75-99)
[2019-05-23] MEDS: INSULIN ASPART (NovoLOG) 100 UNIT/ML VIAL SQ SCH (07:42)
[2019-05-23] MEDS: INSULIN DETEMIR (LEVEMIR) 100 UNIT/ML SYR SQ SCH (07:56)
[2019-05-23] MEDS: PRIMIDONE 50 MG TAB PO SCH (07:58)
[2019-05-23] MEDS: PANTOPRAZOLE 40 MG TABLET PO SCH (08:01)
[2019-05-23] MEDS: ASPIRIN 81 MG PO SCH (08:01)
[2019-05-23] MEDS: CLOPIDOGREL 75 MG TAB PO SCH (08:02)
[2019-05-23] MEDS: CARVEDILOL 12.5 MG TAB PO SCH (08:02)
[2019-05-23] MEDS: GABAPENTIN 100 MG CAP PO SCH (08:02)
[2019-05-23] MEDS: HEPARIN SODIUM,PORCINE 5,000 UNIT/ML 1 ML VIAL SQ SCH (08:03)
[2019-05-23] MEDS: POTASSIUM CHLORIDE ER 20 MEQ TAB.ER PO SCH (08:03)
[2019-05-23] MEDS ORDERED: TORSEMIDE 20 MG TAB PO SCH (09:00)
--- NOTE | 2019-05-23 10:07 | P.DS ---
Providers Date of admission: 05/20/19 13:24 Expected date of discharge: 05/23/19 Attending physician: Peggy Kelley MD Consults: 05/20/19 09:06 Consult Physician Routine Consulting Provider: Geovanny Pete Consult Reason/Comments: kidney injury Do you want consulting provider notified?: Yes Consult Physician Routine Consulting Provider: Aung Hernández Consult Reason/Comments: depression Do you want consulting provider notified?: Yes Primary care physician: David Hogan MD Hospital Course: Patient is a 73-year-old female with metastatic colon cancer status post chemotherapy, insulin-dependent diabetes mellitus and hypertension presents to [facility] as a transfer from [facility] to rule out DVT due to positive d-dimer. She has been complaining of right foot pain over the past 5 days it has been progressively getting worse. In the ED, she was found to have acute kidney injury and hyperkalemia. She had an elevated CRP with no leukocytosis and was given a dose of clindamycin. Venous duplex of the extremities showed no DVT. CT of the lower extremity was unremarkable. Patient was admitted for further workup. Her leg pain appeared to be more in line with plantar fasciitis. Her pain was controlled with Tylenol, Dilaudid as needed. During the admission, family had some concerns regarding the patient taking care of herself. Patient was agreeable to rehab. Physical therapy followed the patient throughout her hospitalization. Patient was accepted to acute rehab at [facility]. Psychiatry was consulted for crying spells and possible depression and recommended mirtazapine at bedtime and no inpatient psychiatry admission. There was some concerns of acute kidney injury on admission. Creatinine was 1.59 on admission. This is thought to be prerenal and improved to 1.07 with IV hydration. It was noted that she had a creatinine of 0.4 in August 2016. Nephrology was consulted and recommended increasing her torsemide and for the patient to follow a low-salt diet. BMP and magnesium level was recommended 2-3 days post discharge. Patient was seen and examined prior to discharge. No acute events overnight. Patient denies any chest pain, shortness of breath or palpitations. No nausea or vomiting. No fever or chills. General: [non toxic], [no distress], [appears at stated age] Derm: [warm], [dry] Head: [atraumatic], [normocephalic], [symmetric] Eyes: [EOMI], [no lid lag], [anicteric sclera] Mouth: [no lip lesion], [mucus membranes moist] Cardiovascular: [S1S2 reg], [regurgitant murmur] Lungs: [Decreased breath sounds bilateral], [no rhonchi, no rales] , [no accessory muscle use] Abdominal: [soft], [ nontender to palpation], [no guarding], [no appreciable organomegaly] Ext: [no gross muscle atrophy], [1+ nonpitting edema], [no contractures] Neuro: [no focal neuro deficits] Psych: [Alert], [oriented], [appropriate affect] Right lower extremity pain likely secondary to plantar fasciitis UTI Acute kidney injury on chronic kidney disease Type 2 diabetes mellitus Chronic heart failure with preserved ejection fraction History metastatic colon cancer Depression Venous duplex negative for DVT. Lower extremity CT negative. Plans: Pain control with Tylenol or Penfield. Plans for acute rehab. Cultures grew E. coli pansensitive. Has received 4 days of Rocephin. Plans: Has had adequate coverage for 3 days IV antibiotics. No antibiotics 2 on discharge. Creatinine 1.59-1.07. Improved with IVF. Likely prerenal. Plans: Repeat BMP as per nephrology and 3 days. Xsioj-[id number] glucose 115. Plans: Continue home dose of insulin along with sliding scale. Accu-Cheks. Hyperglycemic precautions. 2015 echocardiogram shows EF 55-60% with mild concentric LVH. Plans: Continue beta johana. Continue torsemide. Plans: Need adequate outpatient follow-up. States she has an appointment for colonoscopy in July along with seeing an oncology surgeon in [place]. Started on mirtazapine. Plans: We'll need to see psychiatry in the outpatient setting. Patient admitted for right lower extremity pain. Plans to go to rehab today. Duplex negative for DVT. Likely DC today. Pertinent Studies: CT lower extremity, venous duplex Patient Condition at Discharge: Stable Plan - Discharge Summary Discharge Rx Participant: Yes New Discharge Prescriptions: New Torsemide [Demadex] 10 mg PO DAILY #30 tab Gabapentin [Neurontin] 200 mg PO BID #120 cap Mirtazapine [Remeron] 7.5 mg PO HS #30 tab Acetaminophen Tab [Tylenol] 650 mg PO Q6HR PRN #30 tab PRN Reason: Fever And/ Or Pain Continue Primidone [Mysoline] 50 mg PO DAILY Potassium Chloride ER [K-Dur 20] 20 meq PO DAILY Clopidogrel [Plavix] 75 mg PO DAILY Aspirin 81 mg PO DAILY Carvedilol [Coreg*] 12.5 mg PO BID Cyanocobalamin (Vitamin B-12) [Vitamin B-12] 2,000 mcg PO DAILY Spironolactone-Hctz 25-25Mg [Aldactazide 25-25 MG] 1 tab PO DAILY metFORMIN HCL 1,000 mg PO BID Insulin Aspart [NovoLOG] See Protocol SQ AC-TID Insulin Detemir (Levemir) [Levemir] 36 unit SQ BID Vitamin C/Biotin [Hair, Skin and Nails] 1 tab PO DAILY Twining-3 Fatty Acids [Twining-3] 1,000 mg PO DAILY Multivitamins, Thera [Multivitamin (formulary)] 1 tab PO DAILY Changed HYDROcodone/APAP 5-325MG [Penfield 5-325] 1 tab PO Q6HR PRN #12 tab PRN Reason: Pain Discontinued Furosemide [Lasix] 40 mg PO BID Clindamycin [Cleocin] 300 mg PO TID Discharge Medication List Aspirin 81 mg PO DAILY 03/04/14 [History] Carvedilol [Coreg*] 12.5 mg PO BID 03/04/14 [History] Clopidogrel [Plavix] 75 mg PO DAILY 03/04/14 [History] Potassium Chloride ER [K-Dur 20] 20 meq PO DAILY 03/04/14 [History] Primidone [Mysoline] 50 mg PO DAILY 03/04/14 [History] Cyanocobalamin (Vitamin B-12) [Vitamin B-12] 2,000 mcg PO DAILY 02/07/17 [History] Spironolactone-Hctz 25-25Mg [Aldactazide 25-25 MG] 1 tab PO DAILY 02/07/17 [History] metFORMIN HCL 1,000 mg PO BID 02/07/17 [History] Insulin Aspart [NovoLOG] See Protocol SQ AC-TID 05/19/19 [History] Insulin Detemir (Levemir) [Levemir] 36 unit SQ BID 05/19/19 [History] Multivitamins, Thera [Multivitamin (formulary)] 1 tab PO DAILY 05/19/19 [History] Twining-3 Fatty Acids [Twining-3] 1,000 mg PO DAILY 05/19/19 [History] Vitamin C/Biotin [Hair, Skin and Nails] 1 tab PO DAILY 05/19/19 [History] Acetaminophen Tab [Tylenol] 650 mg PO Q6HR PRN #30 tab 05/23/19 [Rx] Gabapentin [Neurontin] 200 mg PO BID #120 cap 05/23/19 [Rx] HYDROcodone/APAP 5-325MG [Penfield 5-325] 1 tab PO Q6HR PRN #12 tab 05/23/19 [Rx] Mirtazapine [Remeron] 7.5 mg PO HS #30 tab 05/23/19 [Rx] Torsemide [Demadex] 10 mg PO DAILY #30 tab 05/23/19 [Rx] Follow up Appointment(s)/Referral(s): [facility] [NON-STAFF] - 1-2 Days David Hogan MD [Primary Care Provider] - 1-2 days Ambulatory/Diagnostic Orders: Basic Metabolic Panel [LAB.AMB] Time Frame: 3 Days, Location: None Selected Magnesium [LAB.AMB] Time Frame: 3 Days, Location: None Selected Activity/Diet/Wound Care/Special Instructions: Diet: Heart healthy. Follow-up with PCP within 1-2 days of discharge. Repeat a BMP within 3 days of discharge. This is to evaluate electrolyte abnormalities. Please follow-up with your primary care doctor for the results of this test. Follow-up with your oncologist in [place] for further treatment and management of her metastatic colon cancer. Please take all medications as advised. Discharge Disposition: TRANSFER TO SNF/ECF
--- NOTE | 2019-05-23 10:24 | P.PN ---
Subjective Patient is seen in follow-up for acute kidney injury. Patient's creatinine in August 2016 was 0.84. This admission it was 1.59 and was down to 1.07 as of yesterday. Admits to good urine output. No vomiting or diarrhea. Oral intake is good. Working with physical therapy. Vital signs are stable. General: The patient appeared well nourished and normally developed. HEENT: Head exam is unremarkable. Neck is without jugular venous distension. LUNGS: Lungs are clear to auscultation and percussion. Breath sounds decreased. HEART: Rate and Rhythm are regular. First and second heart sounds normal. No murmurs, rubs or gallops. ABDOMEN: Abdominal exam reveals normal bowel sounds. Non-tender and non- distended. No evidence of peritonitis. EXTREMITITES: 1+ edema. Objective - Vital Signs Vital signs: Vital Signs Temp 97.3 F L 05/23/19 04:27 Pulse 63 05/23/19 04:27 Resp 18 05/23/19 04:27 BP 150/80 05/23/19 04:27 Pulse Ox 98 05/23/19 04:27 Intake & Output 05/22/19 05/23/19 05/23/19 18:59 06:59 18:59 Intake Total 820 Balance 820 Weight 137.5 kg Intake: Oral 820 Other: Voiding Method Bedside Commode Bedside Commode # Voids 2 2 # Bowel Movements 1 - Labs CBC & Chem 7: 05/20/19 06:47 05/22/19 07:49 Labs: Abnormal Lab Results - Last 24 Hours (Table) 05/22/19 05/22/19 05/22/19 Range/Units 11:21 16:51 20:08 POC Glucose (mg/dL) 241 H 277 H 195 H (75-99) mg/dL 05/23/19 Range/Units 07:09 POC Glucose (mg/dL) 115 H (75-99) mg/dL Microbiology - Last 24 Hours (Table) 05/19/19 21:05 Blood Culture - Preliminary Blood No Growth after 72 hours 05/20/19 12:35 Urine Culture - Final Urine,Clean Catch Escherichia coli Assessment and Plan Plan: Assessment: 1. Acute kidney injury mostly prerenal improving with IV hydration. Creatinine was 1.59 on admission and was down to 1.07 as of yesterday. Creatinine was 0.84 in August 2016. 2. Rule out chronic kidney disease. 3. Insulin-dependent diabetes mellitus. 4. Proteinuria. This is most likely secondary to underlying diabetic kidney disease. Will need to be further worked up outpatient. 5. Volume overload. 6. Hypokalemia from poor oral intake. Now also on diuretics. Magnesium normal. Improved. Plan: Maintain torsemide 10 mg once daily. I advised patient to follow a low-salt diet. She was also advised to weigh herself daily and to increase torsemide to 20 mg daily if has more than 3 pound weight gain or worsening of edema. Repeat BMP and magnesium level in 2-3 days postdischarge. Follow up outpatient in the next 1-2 weeks.
[2019-05-23 10:59] LABS: Glucose,Whole Blood 296 mg/dL (75-99)
== END 2019-05-23 11:50 | DRG 557 ==
LOC: EC 13:56 → 3NMEDONC 19:46 → OBSVTOIN 05-20 13:24
PROVIDERS: ADMIT Internal Medicine; ATTEND Internal Medicine
DX: M72.2 Plantar fascial fibromatosis (principal); N17.0 Acute kidney failure with tubular necrosis; C18.9 Malignant neoplasm of colon, unspecified; C78.7 Secondary malignant neoplasm of liver and intrahepatic bile duct; I13.0 Hypertensive heart and chronic kidney disease with heart failure and stage 1 through stage 4 chronic kidney disease, or unspecified chronic kidney disease; I50.32 Chronic diastolic (congestive) heart failure; Z68.42 Body mass index [BMI] 45.0-49.9, adult; F32.1 Major depressive disorder, single episode, moderate; N39.0 Urinary tract infection, site not specified; D64.9 Anemia, unspecified; E11.22 Type 2 diabetes mellitus with diabetic chronic kidney disease; N18.9 Chronic kidney disease, unspecified; Z79.4 Long term (current) use of insulin; E11.40 Type 2 diabetes mellitus with diabetic neuropathy, unspecified; E66.9 Obesity, unspecified; E78.5 Hyperlipidemia, unspecified; E87.6 Hypokalemia; G47.30 Sleep apnea, unspecified; I25.10 Atherosclerotic heart disease of native coronary artery without angina pectoris; I25.2 Old myocardial infarction; J45.909 Unspecified asthma, uncomplicated; Z79.02 Long term (current) use of antithrombotics/antiplatelets; Z79.82 Long term (current) use of aspirin; Z79.899 Other long term (current) drug therapy; Z79.2 Long term (current) use of antibiotics; Z80.0 Family history of malignant neoplasm of digestive organs; Z80.3 Family history of malignant neoplasm of breast; Z82.49 Family history of ischemic heart disease and other diseases of the circulatory system; Z83.3 Family history of diabetes mellitus; Z83.49 Family history of other endocrine, nutritional and metabolic diseases; Z85.038 Personal history of other malignant neoplasm of large intestine; Z87.891 Personal history of nicotine dependence; Z90.710 Acquired absence of both cervix and uterus; Z91.81 History of falling; Z92.21 Personal history of antineoplastic chemotherapy; Z96.653 Presence of artificial knee joint, bilateral; M19.90 Unspecified osteoarthritis, unspecified site; Z83.2 Family history of diseases of the blood and blood-forming organs and certain disorders involving the immune mechanism; Z90.49 Acquired absence of other specified parts of digestive tract; Z63.4 Disappearance and death of family member
CPT/HCPCS: 36415; 71045; 80048; 80053; 81001; 82550; 83735; 84550; 85025; 86140; 87040; 87077; 87086; 87186; 96361; 96365; 96375; 96376; 99285

== ENCOUNTER 2019-09-22 18:08 | Inpatient (IN) | payer MEDICARE ==
--- NOTE | 2019-09-22 19:23 | ED ---
Recheck HPI - General Chief Complaint: Recheck/Abnormal Lab/Rx Stated Complaint: Pain, unable to move legs Time Seen by Provider: 09/22/19 18:15 Source: EMS, RN notes reviewed, old records reviewed Mode of arrival: EMS Limitations: no limitations - History of Present Illness Initial Comments: This is a 74-year-old female here for evaluation. Patient was assisted evaluation of shortness of breath lower extremity edema significant swelling inability to ambulate secondary to severe swelling. Patient was transferred to our hospital for both nephrology and cardiology to evaluate. Patient will be admitted started on diuresis, patient did have full placed because of her inability to ablate and being placed on Lasix Complaint: other (transfer from [place]) -: days(s) Returns Today for: persistent/worsening pain related to initial visit Symptoms Since Prior Visit: worsening pain, worsening swelling Associated Symptoms: shortness of breath Treatments Prior to Arrival: urinary catheter in place - Related Data Home Medications Medication Instructions Recorded Confirmed Aspirin 81 mg PO DAILY 03/04/14 05/19/19 Carvedilol [Coreg*] 12.5 mg PO BID 03/04/14 05/19/19 Clopidogrel [Plavix] 75 mg PO DAILY 03/04/14 05/19/19 Potassium Chloride ER [K-Dur 20] 20 meq PO DAILY 03/04/14 05/19/19 Primidone [Mysoline] 50 mg PO DAILY 03/04/14 05/19/19 Cyanocobalamin (Vitamin B-12) 2,000 mcg PO DAILY 02/07/17 05/19/19 [Vitamin B-12] Spironolactone-Hctz 25-25Mg 1 tab PO DAILY 02/07/17 05/19/19 [Aldactazide 25-25 MG] metFORMIN HCL 1,000 mg PO BID 02/07/17 05/19/19 Insulin Aspart [NovoLOG] See Protocol SQ AC-TID 05/19/19 05/19/19 Insulin Detemir (Levemir) [Levemir] 36 unit SQ BID 05/19/19 05/19/19 Multivitamins, Thera [Multivitamin 1 tab PO DAILY 05/19/19 05/19/19 (formulary)] Cranks-3 Fatty Acids [Cranks-3] 1,000 mg PO DAILY 05/19/19 05/19/19 Vitamin C/Biotin [Hair, Skin and 1 tab PO DAILY 05/19/19 05/19/19 Nails] Previous Rx's Medication Instructions Recorded Acetaminophen Tab [Tylenol] 650 mg PO Q6HR PRN #30 tab 05/23/19 Gabapentin [Neurontin] 200 mg PO BID #120 cap 05/23/19 HYDROcodone/APAP 5-325MG [[place] 1 tab PO Q6HR PRN #12 tab 05/23/19 5-325] Mirtazapine [Remeron] 7.5 mg PO HS #30 tab 05/23/19 Torsemide [Demadex] 10 mg PO DAILY #30 tab 05/23/19 Allergies Allergy/AdvReac Type Severity Reaction Status Date / Time latex Allergy Rash/Hives Verified 09/22/19 18:20 levofloxacin [From Levaquin] Allergy SEVERE Verified 09/22/19 18:20 MUSCLE PAIN losartan [Losartan] Allergy Rash/Hives Verified 09/22/19 18:20 Penicillins Allergy Rash/Hives Verified 09/22/19 18:20 shellfish derived Allergy Itching Verified 09/22/19 18:20 Sulfa (Sulfonamide Allergy Rash/Hives Verified 09/22/19 18:20 Antibiotics) ADHESIVE TAPE Allergy PEELS SKIN Uncoded 09/22/19 18:20 steroids AdvReac Severe SEVERE Uncoded 09/22/19 18:20 PAIN AFTER SHE STOPS TAKING. martin AdvReac Rash/Hives Uncoded 09/22/19 18:20 Review of Systems ROS Statement: Those systems with pertinent positive or pertinent negative responses have been documented in the HPI. ROS Other: All systems not noted in ROS Statement are negative. Past Medical History Past Medical History: Coronary Artery Disease (CAD), Cancer, Chest Pain / Angina, Heart Failure, CVA/TIA, Diabetes Mellitus, Hyperlipidemia, Hypertension, Myocardial Infarction ([place]), Osteoarthritis (OA), Sleep Apnea/CPAP/BIPAP Additional Past Medical History / Comment(s): HX OF CVA WITH LEFT SIDED WEAKNESS, BALANCE PROBLEMS & HX OF FALLS., ESSSENTIAL TREMORS, USES CANE. , HX OF PERITONITIS FROM RUPTURED OVARY., NOT USING C-PAP DUE TO ALLERGIES., BACK PAIN, ANEMIA, STRESS INCONTINENCE., NEW DIAGNOSIS OF BOWEL CANCER. Last Myocardial Infarction Date:: 2007 History of Any Multi-Drug Resistant Organisms: None Reported Past Surgical History: Appendectomy, Back Surgery, Heart Catheterization With Stent, Hysterectomy, Joint Replacement, Orthopedic Surgery, Tonsillectomy Additional Past Surgical History / Comment(s): UGO KNEE REPLACEMENT, HT STENT X1, EXPLORATORY FOR RUPTURED OVARY.ANTERIOR RESECTION, lower lumbar Surgery Past Anesthesia/Blood Transfusion Reactions: No Reported Reaction Additional Past Anesthesia/Blood Transfusion Reaction / Comment(s): HALLUCINATIONS AFTER BACK SURGERY. STATES SHE HAD [place] DUE TO BLOOD TRANSFUSION Date of Last Stent Placement:: 02/2014 Past Psychological History: No Psychological Hx Reported, Depression Smoking Status: Former smoker Past Alcohol Use History: None Reported Past Drug Use History: None Reported - Past Family History Father Family Medical History: Cancer, Thyroid Disorder Additional Family Medical History / Comment(s): COLON CANCER, HASHIMOTOS,ENLARGED HEART Mother Family Medical History: Diabetes Mellitus, Deep Vein Thrombosis (DVT), Thyroid Disorder Additional Family Medical History / Comment(s): HASHIMOTOS Sister(s) Family Medical History: Cancer, Congestive Heart Failure (CHF) Additional Family Medical History / Comment(s): BREAST CANCER Brother(s) Family Medical History: Cancer Additional Family Medical History / Comment(s): COLON CANCER General Exam Limitations: no limitations General appearance: alert, in no apparent distress Head exam: Present: atraumatic, normocephalic, normal inspection Eye exam: Present: normal appearance, PERRL, EOMI. Absent: scleral icterus, conjunctival injection, periorbital swelling ENT exam: Present: normal exam, mucous membranes moist Neck exam: Present: normal inspection. Absent: tenderness, meningismus, lymphadenopathy Respiratory exam: Present: normal lung sounds bilaterally. Absent: respiratory distress, wheezes, rales, rhonchi, stridor Cardiovascular Exam: Present: regular rate, normal rhythm, normal heart sounds. Absent: systolic murmur, diastolic murmur, rubs, gallop, clicks GI/Abdominal exam: Present: soft, normal bowel sounds. Absent: distended, tenderness, guarding, rebound, rigid Extremities exam: Present: normal inspection, full ROM, normal capillary refill, pedal edema, other (Bilateral extremity edema). Absent: tenderness, joint swelling, calf tenderness Back exam: Present: normal inspection Neurological exam: Present: alert, oriented X3, CN II-XII intact Psychiatric exam: Present: normal affect, normal mood Skin exam: Present: warm, dry, intact, normal color. Absent: rash Course Vital Signs 09/22/19 18:17 Temperature 98 F Pulse Rate 85 Respiratory 16 Rate Blood Pressure 124/64 O2 Sat by Pulse 92 L Oximetry - Reevaluation(s) Reevaluation #1: 09/22/19 19:22 Record transfer paperwork are reviewed - Consultations Consultation #1: Spoke with Dr. Jacinto for solids and was agreeable for admission Medical Decision Making - Medical Decision Making 74 female who was accepted in transfer for evaluation of increasing acute renal failure failure anasarca bilateral lower extremity edema and CHF patient is transferred for nephrology and cardiology evaluation patient will be admitted Disposition Clinical Impression: Dependent edema, ARF (acute renal failure), Leg pain, CHF (congestive heart failure) Disposition: ADMITTED IP TO THIS HOSP Condition: Good Is patient prescribed a controlled substance at d/c from ED?: No Referrals: David Hogan MD [Primary Care Provider] - 1-2 days
[2019-09-22] MEDS ORDERED: FUROSEMIDE 10 MG/ML 4 ML VIAL IV SCH (20:00)
[2019-09-22 20:59] LABS: Glucose,Whole Blood 280 mg/dL (75-99)
[2019-09-22] MEDS ORDERED: GABAPENTIN 300 MG CAP PO PRN (21:56)
[2019-09-22] MEDS ORDERED: DEXAMETHASONE SOD PHOSPHATE 4 MG/ML 1 ML VIAL IV STA (23:19)
--- NOTE | 2019-09-22 23:48 | P.HPIM ---
History of Present Illness H&P Date: 09/22/19 The patient is a 74-year-old female with a PMH of CAD, long-standing insulin- dependent diabetes mellitus with peripheral neuropathy, CK stage III, history of stage IV colon CA status post chemotherapy completed roughly 18 months ago, was transferred from [facility] for leg pain and swelling. The patient reports that she has had long-standing ugo LE pain for which she takes neurontin but that over the past 4 days, she has had lower back pain w/ radiation to her R hip down to her R foot along with L foot pain that radiates up towards her knee. She notes that the pain is so severe that she is unable to ambulate. She endorsed long-standing numbness of her feet and legs though notes it has worsened over past 4 days. The pain is normally a 4/10 though has been a 10/10 over the past few days. She has been following with her PCP who had referred her to a pain medicine doctor, though she is currently awaiting an MRI of her lower back which was scheduled for the coming Tuesday. The patient denied recent falls or trauma. She denied inability to urinate or any other urinary complaints. She also notes that over the past 1 week, she has noticed worsening swelling of her legs which has improved after being in bed all day today and having received Lasix earlier in the day. At time of the interview, she reported 10 out of 10 leg pain of both legs. At baseline, she ambulates with a walker. The patient's chart from [facility] was reviewed. Upon presentation there, the [facility] vital signs were BP 91/59, pulse 79, SpO2 91%, and breathing at a rate of 20 breaths per minute. Laboratory evaluation revealed a sodium of 136, potassium 3.4, chloride 93, CO2 31, BUN 39, and creatinine 1.3 (baseline 1.1), WBC 9.3, hemoglobin 11.7, platelets 231, troponin 0.03, CK 75, AST 16, ALT 21, and albumin 3.9. Review of Systems Pertinent positives and negatives as discussed in HPI, a complete review of systems was performed and all other systems are negative. Past Medical History Past Medical History: Coronary Artery Disease (CAD), Cancer, Chest Pain / Angina, Heart Failure, CVA/TIA, Diabetes Mellitus, Hyperlipidemia, Hypertension, Myocardial Infarction ([place]), Osteoarthritis (OA), Sleep Apnea/CPAP/BIPAP Additional Past Medical History / Comment(s): HX OF CVA WITH LEFT SIDED WEAKNESS, BALANCE PROBLEMS & HX OF FALLS., ESSSENTIAL TREMORS, USES CANE. , HX OF PERITONITIS FROM RUPTURED OVARY., NOT USING C-PAP DUE TO ALLERGIES., BACK PAIN, ANEMIA, STRESS INCONTINENCE., NEW DIAGNOSIS OF BOWEL CANCER. Last Myocardial Infarction Date:: 2007 History of Any Multi-Drug Resistant Organisms: None Reported Past Surgical History: Appendectomy, Back Surgery, Heart Catheterization With Stent, Hysterectomy, Joint Replacement, Orthopedic Surgery, Tonsillectomy Additional Past Surgical History / Comment(s): UGO KNEE REPLACEMENT, HT STENT X1, EXPLORATORY FOR RUPTURED OVARY.ANTERIOR RESECTION, lower lumbar Surgery Past Anesthesia/Blood Transfusion Reactions: No Reported Reaction Additional Past Anesthesia/Blood Transfusion Reaction / Comment(s): HALLUCINATIONS AFTER BACK SURGERY. STATES SHE HAD [place] DUE TO BLOOD TRANSFUSION Date of Last Stent Placement:: 02/2014 Past Psychological History: No Psychological Hx Reported, Depression Smoking Status: Former smoker Past Alcohol Use History: None Reported Past Drug Use History: None Reported - Past Family History Father Family Medical History: Cancer, Thyroid Disorder Additional Family Medical History / Comment(s): COLON CANCER, HASHIMOTOS,ENLARGED HEART Mother Family Medical History: Diabetes Mellitus, Deep Vein Thrombosis (DVT), Thyroid Disorder Additional Family Medical History / Comment(s): HASHIMOTOS Sister(s) Family Medical History: Cancer, Congestive Heart Failure (CHF) Additional Family Medical History / Comment(s): BREAST CANCER Brother(s) Family Medical History: Cancer Additional Family Medical History / Comment(s): COLON CANCER Medications and Allergies Home Medications Medication Instructions Recorded Confirmed Type Aspirin 81 mg PO DAILY 03/04/14 09/22/19 History Carvedilol [Coreg*] 12.5 mg PO BID 03/04/14 09/22/19 History Clopidogrel [Plavix] 75 mg PO DAILY 03/04/14 09/22/19 History Potassium Chloride ER [K-Dur 20] 20 meq PO DAILY 03/04/14 09/22/19 History Primidone [Mysoline] 50 mg PO DAILY 03/04/14 09/22/19 History Cyanocobalamin (Vitamin B-12) 2,000 mcg PO DAILY 02/07/17 09/22/19 History [Vitamin B-12] Spironolactone-Hctz 25-25Mg 1 tab PO DAILY 02/07/17 09/22/19 History [Aldactazide 25-25 MG] Insulin Aspart [NovoLOG] See Protocol SQ AC-TID 05/19/19 09/22/19 History Insulin Detemir (Levemir) [Levemir] 36 unit SQ BID 05/19/19 09/22/19 History Multivitamins, Thera [Multivitamin 1 tab PO DAILY 05/19/19 09/22/19 History (formulary)] Vitamin C/Biotin [Hair, Skin and 1 tab PO DAILY 05/19/19 09/22/19 History Nails] Acetaminophen Tab [Tylenol] 650 mg PO Q6HR PRN #30 tab 05/23/19 09/22/19 Rx Mirtazapine [Remeron] 7.5 mg PO HS #30 tab 05/23/19 09/22/19 Rx Gabapentin [Neurontin] 300 mg PO TID PRN 09/22/19 09/22/19 History Rosuvastatin Calcium 5 mg PO HS 09/22/19 09/22/19 History Torsemide [Demadex] 20 mg PO DAILY 09/22/19 09/22/19 History metFORMIN HCL ER [Glucophage Xr] 500 mg PO BID 09/22/19 09/22/19 History Allergies Allergy/AdvReac Type Severity Reaction Status Date / Time latex Allergy Rash/Hives Verified 09/22/19 20:38 levofloxacin [From Levaquin] Allergy SEVERE Verified 09/22/19 20:38 MUSCLE PAIN losartan [Losartan] Allergy Rash/Hives Verified 09/22/19 20:38 Penicillins Allergy Rash/Hives Verified 09/22/19 20:38 shellfish derived Allergy Itching Verified 09/22/19 20:38 Sulfa (Sulfonamide Allergy Rash/Hives Verified 09/22/19 20:38 Antibiotics) ADHESIVE TAPE Allergy PEELS SKIN Uncoded 09/22/19 18:20 steroids AdvReac Severe SEVERE Uncoded 09/22/19 18:20 PAIN AFTER SHE STOPS TAKING. martin AdvReac Rash/Hives Uncoded 09/22/19 18:20 Physical Exam Vitals: Vital Signs Temp Pulse Pulse Resp BP BP Pulse Ox 09/22/19 21:06 98.5 F 83 19 111/64 94 L 09/22/19 20:31 87 20 125/54 92 L 09/22/19 18:17 98 F 85 16 124/64 92 L Intake and Output 09/22/19 09/22/19 09/22/19 06:59 14:59 22:59 Other: Weight 133.81 kg General: morbidly obese, non toxic, no distress, appears at stated age Derm: no unusual rashes/lesions no unusual ecchymoses, warm, dry Head: atraumatic, normocephalic, symmetric Eyes: EOMI, no lid lag, anicteric sclera, pupils equal round reactive to light ENT: Nose and ears atraumatic, no thrush, no pharyngeal erythema Neck: No thyromegaly, no cervical lymphadenopathy, trachea midline, supple Mouth: no lip lesion, mucus membranes moist Cardiovascular: S1S2 reg, no murmur, positive posterior tibial pulse bilateral, 1+ ugo LE edema, capillary refill less than 2 seconds Lungs: Trace bibasilar rales, no rhonchi, no accessory muscle use Abdominal: soft, nontender to palpation, no guarding, no appreciable organomegaly, normal bowel sounds Ext: no gross muscle atrophy, hyperesthesias of ugo LEs with strength 2/5 on exam due to pain proximally of the hip and distally due to pain, no contractures, diminished sensation to knees ugo Neuro: CN II-XI grossly intact, finger to nose within normal limits, Psych: Alert, oriented, appropriate affect Results Labs: Abnormal Lab Results - Last 24 Hours (Table) 09/22/19 Range/Units 20:58 POC Glucose (mg/dL) 280 H (75-99) mg/dL Assessment and Plan Plan: Bilateral lower back pain w/ radiation to the legs, concerns for radicular process with spinal cord compression -Decardon 10 mg IV ordered -Discussed with the patient the need for immediate neurosurgical evaluation and MRI. Discussed the need for transfer to a tertiary care facility (ie [facility] or [facility]) -The patient notes that since she has already been transferred from [facility] earlier today, she does not wish to be transferred to any other facility -Discussed in detail regarding possibly risks of delaying treatment including worsening neurological compromise and possibly paralysis -The patient vehemently refused a transfer tonight -Will order Neurochecks -Strict Bed-rest -Obtain CT lumbar spine w/ contrast for now -C/w Neurontin Insulin dependent diabetes mellitus -C/w insulin home doses: Levemir 36 U bid -ALEXIS with FS SILVER on CKD III -Cr 1.3, up from a baseline of 1.1 w/ alkalosis -BUN significantly elevated, likely contraction due to aggressive diuresis -Will hold off on Lasix and Torsemide for now -Nephrology consulted CAD -C/w home meds ASA and Plavix -C/w Coreg DVT prophylaxis -Heparin subq The patient is admitted with an anticipated greater than 2 midnight stay for evaluation of lower back and leg pain CODE STATUS: Full Code Discussed with: Patient Anticipated discharge date: 2-[address]: Home A total of 50 minutes was spent on the care of this complex patient more than 50% of the time was spent in counseling and care coordination.
[2019-09-22 23:52] LABS: Glucose,Whole Blood 412 mg/dL (75-99)
[2019-09-23] MEDS: INSULIN DETEMIR (LEVEMIR) 100 UNIT/ML SYR SQ SCH ×3 (00:04→21:05)
[2019-09-23] MEDS: HEPARIN SODIUM,PORCINE 5,000 UNIT/ML 1 ML VIAL SQ SCH ×3 (00:04→17:20)
[2019-09-23] MEDS: INSULIN ASPART (NovoLOG) 100 UNIT/ML VIAL SQ SCH ×5 (00:05→21:06)
--- NOTE | 2019-09-23 01:13 | CT ---
EXAMINATION TYPE: CT lumbar spine w con DATE OF EXAM: 09/23/2019 COMPARISON: None HISTORY: Low back pain CT DLP: mGycm Automated exposure control for dose reduction was used. Multiple axial sections were obtained from the level of T12-S3 vertebra without contrast. Lumbar vertebra have fairly normal alignment. There is hypertrophic spurring of the endplates through out the lumbar spine. There is no compression fracture. There is vacuum disc at L3-4. There is no lum bar paraspinal mass. There is moderate-sized posterior disc herniation at L2-3 with spinal stenosis. There is similar L3-4 spinal stenosis due to posterior disc bulging and facet arthropathy and ligamen dhruv flavum thickening. There is moderate L4-5 spinal stenosis similarly. I see no focal bone destruction. The sacroiliac joints are intact. IMPRESSION: Spondylotic changes. Multilevel spinal stenosis. Posterior disc herniations from L2 to L5 that is lar daren at L2-3. No fracture. Spinal stenosis is more severe at L4-5.
--- NOTE | 2019-09-23 01:14 | XR ---
EXAMINATION TYPE: XR chest 1V DATE OF EXAM: 09/23/2019 COMPARISON: 05/22/2019 HISTORY: Chest pain TECHNIQUE: Single frontal view of the chest is obtained. FINDINGS: There is no heart failure nor confluent pneumonic infiltrate. Costophrenic angles are larry r. Thoracic aorta is atheromatous. Bony thorax is intact. IMPRESSION: No active cardiopulmonary disease. Atheromatous aorta. No change. Normal heart.
[2019-09-23 03:51] LABS: Glucose,Whole Blood 371 mg/dL (75-99)
[2019-09-23 07:16] LABS: Glucose,Whole Blood 403 mg/dL (75-99)
[2019-09-23] MEDS ORDERED: INSULIN ASPART (NovoLOG) 100 UNIT/ML VIAL SQ SCH (07:30)
[2019-09-23 07:46] LABS: HCT 35.8 % (34.0-46.0); HGB 11.9 gm/dL (11.4-16.0); MCH 31.6 pg (25.0-35.0); MCHC 33.2 g/dL (31.0-37.0); MCV 95.1 fL (80.0-100.0); Mean Platelet Volume 7.8; Platelet Count 242 k/uL (150-450); RBC 3.76 m/uL (3.80-5.40); RDW 14.5 % (11.5-15.5); WBC 10.9 k/uL (3.8-10.6)
[2019-09-23 07:59] LABS: Calcium 10.4 mg/dL (8.4-10.2); Potassium 4.1 mmol/L (3.5-5.1)
[2019-09-23] MEDS ORDERED: POTASSIUM CHLORIDE ER 20 MEQ TAB.ER PO SCH (09:00)
[2019-09-23] MEDS: ASPIRIN 81 MG PO SCH (09:52)
[2019-09-23] MEDS: CYANOCOBALAMIN 500 MCG TAB PO SCH (09:52)
[2019-09-23] MEDS: CLOPIDOGREL 75 MG TAB PO SCH (09:52)
[2019-09-23] MEDS: CARVEDILOL 12.5 MG TAB PO SCH ×2 (09:52→17:20)
[2019-09-23] MEDS: MULTIVITAMINS, THERA 1 EACH TAB PO SCH (09:52)
[2019-09-23] MEDS: DEXAMETHASONE 4 MG TAB PO SCH ×4 (09:52→19:57)
--- NOTE | 2019-09-23 10:01 | P.NPCON ---
History of Present Illness - Reason for Consult Consult date: 09/23/19 acute renal failure - Chief Complaint Lower extremity swelling and inability to ambulate. - History of Present Illness 74-year-old lady known to Dr. Pete for chronic kidney disease. She is admitt ed to the hospital with lower extremity swelling and inability to ambulate. She has pain in bilateral lower extremities right greater than left. She did had similar complaints in the past as per May chart review. Denies NSAID use no nausea vomiting diarrhea. She admits taking torsemide for edema but her home meds includes Aldactone-hydrochlorothiazide combination. No recent contrast studies. Baseline creatinine is 1.0 MG per DL creatinine on admission was at baseline creep to 1.3 MG per DL today. Long history of diabetes. Currently being treated as cord compression with dexamethasone. Review of Systems Constitutional: Reports as per HPI Past Medical History Past Medical History: Coronary Artery Disease (CAD), Cancer, Chest Pain / Angina, Heart Failure, CVA/TIA, Diabetes Mellitus, Hyperlipidemia, Hypertension, Myocardial Infarction ([place]), Osteoarthritis (OA), Sleep Apnea/CPAP/BIPAP Additional Past Medical History / Comment(s): HX OF CVA WITH LEFT SIDED WEAKNESS, BALANCE PROBLEMS & HX OF FALLS., ESSSENTIAL TREMORS, USES CANE. , HX OF PERITONITIS FROM RUPTURED OVARY., NOT USING C-PAP DUE TO ALLERGIES., BACK PAIN, ANEMIA, STRESS INCONTINENCE., NEW DIAGNOSIS OF BOWEL CANCER. Last Myocardial Infarction Date:: 2007 History of Any Multi-Drug Resistant Organisms: None Reported Past Surgical History: Appendectomy, Back Surgery, Heart Catheterization With Stent, Hysterectomy, Joint Replacement, Orthopedic Surgery, Tonsillectomy Additional Past Surgical History / Comment(s): UGO KNEE REPLACEMENT, HT STENT X1, EXPLORATORY FOR RUPTURED OVARY.ANTERIOR RESECTION, lower lumbar Surgery Past Anesthesia/Blood Transfusion Reactions: No Reported Reaction Additional Past Anesthesia/Blood Transfusion Reaction / Comment(s): HALLU CINATIONS AFTER BACK SURGERY. STATES SHE HAD [place] DUE TO BLOOD TRANSFUSION Date of Last Stent Placement:: 02/2014 Past Psychological History: No Psychological Hx Reported, Depression Smoking Status: Former smoker Past Alcohol Use History: None Reported Past Drug Use History: None Reported - Past Family History Father Family Medical History: Cancer, Thyroid Disorder Additional Family Medical History / Comment(s): COLON CANCER, HASHIMOTOS,ENLARGED HEART Mother Family Medical History: Diabetes Mellitus, Deep Vein Thrombosis (DVT), Thyroid Disorder Additional Family Medical History / Comment(s): HASHIMOTOS Sister(s) Family Medical History: Cancer, Congestive Heart Failure (CHF) Additional Family Medical History / Comment(s): BREAST CANCER Brother(s) Family Medical History: Cancer Additional Family Medical History / Comment(s): COLON CANCER Medications and Allergies Home Medications Medication Instructions Recorded Confirmed Type Aspirin 81 mg PO DAILY 03/04/14 09/22/19 History Carvedilol [Coreg*] 12.5 mg PO BID 03/04/14 09/22/19 History Clopidogrel [Plavix] 75 mg PO DAILY 03/04/14 09/22/19 History Potassium Chloride ER [K-Dur 20] 20 meq PO DAILY 03/04/14 09/22/19 History Primidone [Mysoline] 50 mg PO DAILY 03/04/14 09/22/19 History Cyanocobalamin (Vitamin B-12) 2,000 mcg PO DAILY 02/07/17 09/22/19 History [Vitamin B-12] Spironolactone-Hctz 25-25Mg 1 tab PO DAILY 02/07/17 09/22/19 History [Aldactazide 25-25 MG] Insulin Aspart [NovoLOG] See Protocol SQ AC-TID 05/19/19 09/22/19 History Insulin Detemir (Levemir) [Levemir] 36 unit SQ BID 05/19/19 09/22/19 History Multivitamins, Thera [Multivitamin 1 tab PO DAILY 05/19/19 09/22/19 History (formulary)] Vitamin C/Biotin [Hair, Skin and 1 tab PO DAILY 05/19/19 09/22/19 History Nails] Acetaminophen Tab [Tylenol] 650 mg PO Q6HR PRN #30 tab 05/23/19 09/22/19 Rx Mirtazapine [Remeron] 7.5 mg PO HS #30 tab 05/23/19 09/22/19 Rx Gabapentin [Neurontin] 300 mg PO TID PRN 09/22/19 09/22/19 History Rosuvastatin Calcium 5 mg PO HS 09/22/19 09/22/19 History Torsemide [Demadex] 20 mg PO DAILY 09/22/19 09/22/19 History metFORMIN HCL ER [Glucophage Xr] 500 mg PO BID 09/22/19 09/22/19 History Allergies Allergy/AdvReac Type Severity Reaction Status Date / Time latex Allergy Rash/Hives Verified 09/22/19 20:38 levofloxacin [From Levaquin] Allergy SEVERE Verified 09/22/19 20:38 MUSCLE PAIN losartan [Losartan] Allergy Rash/Hives Verified 09/22/19 20:38 Penicillins Allergy Rash/Hives Verified 09/22/19 20:38 shellfish derived Allergy Itching Verified 09/22/19 20:38 Sulfa (Sulfonamide Allergy Rash/Hives Verified 09/22/19 20:38 Antibiotics) ADHESIVE TAPE Allergy PEELS SKIN Uncoded 09/22/19 18:20 steroids AdvReac Severe SEVERE Uncoded 09/22/19 18:20 PAIN AFTER SHE STOPS TAKING. martin AdvReac Rash/Hives Uncoded 09/22/19 18:20 Physical Exam Vitals: Vital Signs Temp Pulse Pulse Resp BP BP Pulse Ox 09/23/19 09:50 97.3 F L 18 09/23/19 04:51 98 F 78 20 117/55 92 L 09/22/19 21:06 98.5 F 83 19 111/64 94 L 09/22/19 20:31 87 20 125/54 92 L 09/22/19 18:17 98 F 85 16 124/64 92 L Intake and Output 09/22/19 09/23/19 09/23/19 22:59 06:59 14:59 Intake Total 590 Output Total 425 900 Balance 165 -900 Intake: Oral 590 Output: Urine 425 900 Uretheral (Rick) 900 Other: Voiding Method Indwelling Catheter Weight 129.5 kg 127.5 kg No acute distress S1-S2 heard Lungs clear Abdomen soft distended Trace edema but tenderness. Results - Lab Results Most recent lab results Calcium 10.4 mg/dL (8.4-10.2) H 09/23/19 06:33 09/23/19 06:33 09/23/19 06:33 Assessment and Plan Assessment: #1 nonoliguric acute kidney injury suspect prerenal from overdiuresis. Chest x- ray clear no signs of volume overload. #2 chronic kidney disease stage III with a baseline creatinine of 1.2 MG per DL secondary to diabetic nephropathy. Follows with Dr. Pete as outpatient. #3 diabetes uncontrolled #4 metabolic alkalosis #5 low normal blood pressures. #6 suspected cord compression on steroids. Plan: #1 hold diuretics as renal function is worsening. #2 diabetes controlled as it can cause osmotic diuresis. #3 avoid nephrotoxic agents and hypotensive episodes #4 labs in the morning. #5 stop potassium supplements
[2019-09-23 11:41] LABS: Glucose,Whole Blood 575 mg/dL (75-99)
--- NOTE | 2019-09-23 12:45 | P.PN ---
Subjective Progress Note Date: 09/23/19 Patient seen and examined at bedside, reportedly unable to move her lower extremities, reporting paresthesias of both lower extremities right greater than left and itching on the lateral aspect of her right foot. Reporting this is been ongoing since May of this year, reports fall 2 weeks ago. Patient refusing suggestions on transfer to tertiary level hospital to be seen by neurosurgery and have an MRI done today. The creatinine at 1.36 Blood sugars elevated at 403 Objective - Vital Signs Vital signs: Vital Signs Temp 97.3 F L 09/23/19 09:50 Pulse 78 09/23/19 04:51 Resp 18 09/23/19 09:50 BP 117/55 09/23/19 04:51 Pulse Ox 92 L 09/23/19 04:51 Intake & Output 09/22/19 09/23/19 09/23/19 18:59 06:59 18:59 Intake Total 590 Output Total 1325 700 Balance -735 -700 Weight 133.81 kg 127.5 kg Intake: Oral 590 Output: Urine 1325 700 Uretheral (Rick) 900 700 Other: Voiding Method Indwelling Catheter Indwelling Catheter - Exam Constitutional: No acute distress, conversant, pleasant Eyes: Anicteric sclerae, moist conjunctiva, no lid-lag, PERRLA ENMT: NC/AT,Oropharynx clear, no erythema, exudates Neck:Supple, FROM, no masses, or JVD, No carotid bruits; No thyromegaly Lungs: Clear to auscultation, Clear to percussion, Normal respiratory effort, no accessory muscle use Cardiovascular: Heart regular in rate and rhythm, No murmurs, gallops, or rubs no peripheral edema Abdominal: Soft Nontender, nom distended, no guarding, no rebound or rigidity, Normoactive bowel sounds No hepatomegaly, No splenomegaly, No palpable mass No abdominal wall hernia noted Skin: Normal temperature, tone, texture, turgor, No induration No subcutaneous nodules, mild erythema on the lateral aspect of her foot scattered areas of petechia on the foot and some subungual areas Extremities:no gross muscle atrophy, hyperesthesias of fran LEs with strength 2/5 on exam due to pain proximally of the hip and distally due to pain, no contractures, diminished sensation to knees fran Psychiatric: Alert and oriented to person, place and time, Appropriate affect Intact judgement Neuro: Muscles Strength 5/5 in all 4 extremities, Sensation to light touch grossly present throughout, Cranial nerves II-XII grossly intact. No focal sensory deficits - Labs CBC & Chem 7: 09/23/19 06:33 09/23/19 06:33 Labs: Abnormal Lab Results - Last 24 Hours (Table) 09/22/19 09/22/19 09/23/19 Range/Units 20:58 23:51 03:49 WBC (3.8-10.6) k/uL RBC (3.80-5.40) m/uL Sodium (137-145) mmol/L Chloride (98-107) mmol/L BUN (7-17) mg/dL Creatinine (0.52-1.04) mg/dL Glucose (74-99) mg/dL POC Glucose (mg/dL) 280 H 412 H 371 H (75-99) mg/dL Calcium (8.4-10.2) mg/dL 09/23/19 09/23/19 09/23/19 Range/Units 06:33 06:33 07:15 WBC 10.9 H (3.8-10.6) k/uL RBC 3.76 L (3.80-5.40) m/uL Sodium 136 L (137-145) mmol/L Chloride 91 L (98-107) mmol/L BUN 47 H (7-17) mg/dL Creatinine 1.36 H (0.52-1.04) mg/dL Glucose 374 H (74-99) mg/dL POC Glucose (mg/dL) 403 H (75-99) mg/dL Calcium 10.4 H (8.4-10.2) mg/dL Assessment and Plan Assessment: Bilateral lower back pain w/ radiation to the legs, concerns for radicular process with spinal cord compression -Decardon 10 mg IV ordered -Discussed with the patient the need for immediate neurosurgical evaluation and MRI. Discussed the need for transfer to a tertiary care facility ([facility] or [facility]) -Discussed in detail regarding possibly risks of delaying treatment including worsening neurological compromise and possibly paralysis, inability to walk in the future, loss of limb/amputation -Continues to refuse transfer -Will order Neurochecks -Strict Bed-rest -Lumbar CT showing severe spinal stenosis at L4-L5, with some degenerative disc disease L2 to L 5 -Orthopedic surgery consult placed urgently - Type 2 insulin-dependent diabetes with hyperglycemia -C/w insulin home doses: Levemir 36 U bid -Continue Accu-Cheks before qahs with correctional scale coverage SILVER on CKD III -Cr 1.3, up from a baseline of 1.1 w/ alkalosis -BUN significantly elevated, likely contraction due to aggressive diuresis -Will hold off on Lasix and Torsemide for now -Appreciate neurology recommendations CAD -C/w home meds ASA and Plavix -C/w Coreg DVT prophylaxis -Heparin subq Disposition * Had discussed the patient's plan of care and concerns that we have for the patient for possible lumbar cord compression and the need for urgent evaluation diagnosis and possible intervention with her and her son Power via phone * Patient continues to refuse any suggestion of possible transfer to a higher level of care or tertiary center and is verbally accepted all liability in the presence of both her nurses The patient is admitted with an anticipated greater than 2 midnight stay for evaluation of lower back and leg pain CODE STATUS: Full Code Discussed with: Patient Anticipated discharge date: 2-[address]: Home A total of 50 minutes was spent on the care of this complex patient more than 50% of the time was spent in counseling and care coordination.
[2019-09-23] MEDS ORDERED: HYDROcodone/APAP 7.5-325MG 1 EACH TAB PO PRN (12:49)
[2019-09-23 12:51] LABS: Glucose,Whole Blood 542 mg/dL (75-99)
--- NOTE | 2019-09-23 14:08 | P.HPOR ---
History of Present Illness H&P Date: 09/23/19 Chief Complaint: Bilateral lower extremity pain with reported weakness Patient is a pleasant 74-year-old female who seen and examined today at bedside. She has a long history of multiple medical issues including Seema artery disease diabetes and congestive heart failure as well as colon cancer. She says that she has had pain in her lower back for years with lower extremity issues for many years. Back in May she had a flareup of her back pain and lower extremity pain especially around her ankles and feet. She's not sure if the pain starts from her ankles and move. Her legs but she feels that her pain is primarily due to her neuropathy. She said that this past week she had been doing some activity. She normally is a community ambulator oftentimes with a walker. She does her own shopping and meal preparation and driving. She says however her pain became quite severe on where she was having great difficulty with any sort of ambulation and mobilization to the point where she was unable to walk. She went to the hospital at [place] and was shaped tear due to her lower extremity weakness. She feels that her legs were so heavy that she was unable to lift them. She was retaining significant fluid in her legs. Her pain was too severe at her ankles and feet for her to move. She is unable to walk on her own and get out of bed on her own. She denied any fevers or chills or changes in her urinary status. She's not sure if she felt weak because it was week or week because it was painful. She has had workup here in the hospital with computed tomography scan and medication. I have reviewed the computed tomography scan and images. She has been started on IV steroid and has been making progress over the past day in terms of her strength in her ability to move her legs. Review of Systems As stated per HPI. She denies any chest pain or shortness of breath. Past Medical History Past Medical History: Coronary Artery Disease (CAD), Cancer, Chest Pain / Angina, Heart Failure, CVA/TIA, Diabetes Mellitus, Hyperlipidemia, Hypertension, Myocardial Infarction ([place]), Osteoarthritis (OA), Sleep Apnea/CPAP/BIPAP Additional Past Medical History / Comment(s): HX OF CVA WITH LEFT SIDED WEAKNESS, BALANCE PROBLEMS & HX OF FALLS., ESSSENTIAL TREMORS, USES CANE. , HX OF PERITONITIS FROM RUPTURED OVARY., NOT USING C-PAP DUE TO ALLERGIES., BACK PAIN, ANEMIA, STRESS INCONTINENCE., NEW DIAGNOSIS OF BOWEL CANCER. Last Myocardial Infarction Date:: 2007 History of Any Multi-Drug Resistant Organisms: None Reported Past Surgical History: Appendectomy, Back Surgery, Heart Catheterization With Stent, Hysterectomy, Joint Replacement, Orthopedic Surgery, Tonsillectomy Additional Past Surgical History / Comment(s): UGO KNEE REPLACEMENT, HT STENT X1, EXPLORATORY FOR RUPTURED OVARY.ANTERIOR RESECTION, lower lumbar Surgery Past Anesthesia/Blood Transfusion Reactions: No Reported Reaction Additional Past Anesthesia/Blood Transfusion Reaction / Comment(s): HALLUCINATIONS AFTER BACK SURGERY. STATES SHE HAD [place] DUE TO BLOOD TRANSFUSION Date of Last Stent Placement:: 02/2014 Past Psychological History: No Psychological Hx Reported, Depression Smoking Status: Former smoker Past Alcohol Use History: None Reported Past Drug Use History: None Reported - Past Family History Father Family Medical History: Cancer, Thyroid Disorder Additional Family Medical History / Comment(s): COLON CANCER, HAS HIMOTOS,ENLARGED HEART Mother Family Medical History: Diabetes Mellitus, Deep Vein Thrombosis (DVT), Thyroid Disorder Additional Family Medical History / Comment(s): HASHIMOTOS Sister(s) Family Medical History: Cancer, Congestive Heart Failure (CHF) Additional Family Medical History / Comment(s): BREAST CANCER Brother(s) Family Medical History: Cancer Additional Family Medical History / Comment(s): COLON CANCER Medications and Allergies Home Medications Medication Instructions Recorded Confirmed Type Aspirin 81 mg PO DAILY 03/04/14 09/22/19 History Carvedilol [Coreg*] 12.5 mg PO BID 03/04/14 09/22/19 History Clopidogrel [Plavix] 75 mg PO DAILY 03/04/14 09/22/19 History Potassium Chloride ER [K-Dur 20] 20 meq PO DAILY 03/04/14 09/22/19 History Primidone [Mysoline] 50 mg PO DAILY 03/04/14 09/22/19 History Cyanocobalamin (Vitamin B-12) 2,000 mcg PO DAILY 02/07/17 09/22/19 History [Vitamin B-12] Spironolactone-Hctz 25-25Mg 1 tab PO DAILY 02/07/17 09/22/19 History [Aldactazide 25-25 MG] Insulin Aspart [NovoLOG] See Protocol SQ AC-TID 05/19/19 09/22/19 History Insulin Detemir (Levemir) [Levemir] 36 unit SQ BID 05/19/19 09/22/19 History Multivitamins, Thera [Multivitamin 1 tab PO DAILY 05/19/19 09/22/19 History (formulary)] Vitamin C/Biotin [Hair, Skin and 1 tab PO DAILY 05/19/19 09/22/19 History Nails] Acetaminophen Tab [Tylenol] 650 mg PO Q6HR PRN #30 tab 05/23/19 09/22/19 Rx Mirtazapine [Remeron] 7.5 mg PO HS #30 tab 05/23/19 09/22/19 Rx Gabapentin [Neurontin] 300 mg PO TID PRN 09/22/19 09/22/19 History Rosuvastatin Calcium 5 mg PO HS 09/22/19 09/22/19 History Torsemide [Demadex] 20 mg PO DAILY 09/22/19 09/22/19 History metFORMIN HCL ER [Glucophage Xr] 500 mg PO BID 09/22/19 09/22/19 History Allergies Allergy/AdvReac Type Severity Reaction Status Date / Time latex Allergy Rash/Hives Verified 09/22/19 20:38 levofloxacin [From Levaquin] Allergy SEVERE Verified 09/22/19 20:38 MUSCLE PAIN losartan [Losartan] Allergy Rash/Hives Verified 09/22/19 20:38 Penicillins Allergy Rash/Hives Verified 09/22/19 20:38 shellfish derived Allergy Itching Verified 09/22/19 20:38 Sulfa (Sulfonamide Allergy Rash/Hives Verified 09/22/19 20:38 Antibiotics) ADHESIVE TAPE Allergy PEELS SKIN Uncoded 09/22/19 18:20 steroids AdvReac Severe SEVERE Uncoded 09/22/19 18:20 PAIN AFTER SHE STOPS TAKING. martin AdvReac Rash/Hives Uncoded 09/22/19 18:20 Physical Examination Osteopathic Statement: *. No significant issues noted on an osteopathic structural exam other than those noted in the History and Physical/Consult. - L Spine: dermatomal strength & reflexes bilateral Strength: hip flexion: 5/5 (At her lower extremities she has sustained dorsal flexion plantar flexion and EHL intact. She has able to lift her legs up off the bed independently. She is able to flex and extend her knees with her legs up off the bed. She is no pain with internal/external rotation of her hips. She has tenderness to palpation diffusely around her feet and ankles bilaterally equally. She is globally tender around her feet and lower ankles to palpation and around her calf as well. There is no specific point tenderness there is no crepitus. There is no ulceration or rashes.) Results - Labs Labs: Abnormal Lab Results - Last 24 Hours (Table) 09/22/19 09/22/19 09/23/19 Range/Units 20:58 23:51 03:49 WBC (3.8-10.6) k/uL RBC (3.80-5.40) m/uL Sodium (137-145) mmol/L Chloride (98-107) mmol/L BUN (7-17) mg/dL Creatinine (0.52-1.04) mg/dL Glucose (74-99) mg/dL POC Glucose (mg/dL) 280 H 412 H 371 H (75-99) mg/dL Calcium (8.4-10.2) mg/dL 09/23/19 09/23/19 09/23/19 Range/Units 06:33 06:33 07:15 WBC 10.9 H (3.8-10.6) k/uL RBC 3.76 L (3.80-5.40) m/uL Sodium 136 L (137-145) mmol/L Chloride 91 L (98-107) mmol/L BUN 47 H (7-17) mg/dL Creatinine 1.36 H (0.52-1.04) mg/dL Glucose 374 H (74-99) mg/dL POC Glucose (mg/dL) 403 H (75-99) mg/dL Calcium 10.4 H (8.4-10.2) mg/dL 09/23/19 09/23/19 Range/Units 11:40 12:42 WBC (3.8-10.6) k/uL RBC (3.80-5.40) m/uL Sodium (137-145) mmol/L Chloride (98-107) mmol/L BUN (7-17) mg/dL Creatinine (0.52-1.04) mg/dL Glucose (74-99) mg/dL POC Glucose (mg/dL) 575 H 542 H (75-99) mg/dL Calcium (8.4-10.2) mg/dL H & H 09/23/19 Range/Units 06:33 Hgb 11.9 (11.4-16.0) gm/dL Hct 35.8 (34.0-46.0) % Result Diagrams: 09/23/19 06:33 09/23/19 06:33 - Diagnostic results CT Scan - lumbar: report reviewed, image reviewed (Computed tomography scan is reviewed in terms of her lumbar spine. She has severe disc degeneration throughout her lumbar spine. She has evidence of moderate to severe central and bilateral foraminal stenosis L2-3 L3 4 and L4 5. There is facet arthrosis and diffuse spondylosis. This appears to be chronic.) Assessment and Plan Assessment: Bilateral lower extremity pain Inability to ambulate Subjective weakness had lower extremities which has improved over the past 2 days with medication and steroid. Hospital Bilateral lower extremity swelling Low back pain Degenerative spondylosis with evidence of stenosis L2-3 L3 4 L4 5 Likely exacerbation of neuropathy Likely exacerbation of degenerative spondylosis and lower extremity stenosis and claudication Plan: Bilateral lower extremity pain Inability to ambulate Subjective weakness had lower extremities which has improved over the past 2 days with medication and steroid. Hospital Bilateral lower extremity swelling Low back pain Degenerative spondylosis with evidence of stenosis L2-3 L3 4 L4 5 Likely exacerbation of neuropathy Likely exacerbation of degenerative spondylosis and lower extremity stenosis and claudication The patient was having acute changes at her lower extremities and was not able or willing to move her legs. It was unclear whether this was an acute neurol ogic change versus weakness secondary to pain. They initiated appropriate treatment with medication and imaging. Here the hospital they've made number of times to obtain an acute MRI which is not available here in [place]. The suggestion was for transfer to obtain an emergent MRI but the patient refused. Fortunately the patient has been making progress with her treatment. She has regained strength in her lower extremities with the steroid management and her pain has been able to improve to some degree. She is still not able to be mobile on her own but feels that she is making progress. She is not having chest pain or shortness of breath with but with the swelling at her lower extremities I think that a ultrasound of her legs to rule out DVT is necessary. We will go ahead and order that. She has significant tenderness diffusely over her feet and ankles. This does not seem specifically spine related but is likely due to her long-term neuropathy. She had to stop many of her medications including her Neurontin prior to her medical testing this week and this may continue to improve as she has resumed her medications. I think that most of this pain does stem from her neuropathy in general. As she has been making some progress I do not plan acute surgical intervention. She is scheduled for an MRI tomorrow and I think that is appropriate. We can follow her up further after the MRI is completed. I believe it'll likely confirm much of the computed tomography scan findings of stenosis L2-3 L3 4 and L4 5 which seems to likely be chronic. She has acute exacerbation of her spondylosis and radicular symptoms due to her stenosis and she should continue with her steroid medication to alleviate inflammation around her nerves propyl continued improvement. She can also start with physical therapy for mobilization if the ultrasound is negative for DVT. I had long discussion with her and her family at bedside I answered their questions best my ability and they are agreeable. Time with Patient: Greater than 30
[2019-09-23 14:28] VITALS: BMI 42.7
--- NOTE | 2019-09-23 14:54 | US ---
EXAMINATION TYPE: US venous doppler duplex LE DATE OF EXAM: 09/23/2019 1:58 PM COMPARISON: US CLINICAL HISTORY: Bilateral ankle and calf pain with swelling. SIDE PERFORMED: Bilateral TECHNIQUE: The lower extremity deep venous system is examined utilizing real time linear array sonog katie with graded compression, doppler sonography and color-flow sonography. VESSELS IMAGED: External Iliac Vein (EIV) Common Femoral Vein Deep Femoral Vein Greater Saphenous Vein * Femoral Vein Popliteal Vein Small Saphenous Vein * Proximal Calf Veins (* superficial vessels) Grayscale, color doppler, spectral doppler imaging performed of the deep veins of the bilateral lower extremities. There is normal flow, compressibility, vascular waveforms. IMPRESSION: No evidence for DVT of the bilateral lower extremities.
[2019-09-23 15:37] LABS: Glucose,Whole Blood 578 mg/dL (75-99)
[2019-09-23] MEDS ORDERED: INSULIN ASPART (NovoLOG) 100 UNIT/ML VIAL SQ ONE ×2 (15:52→17:34)
[2019-09-23 17:20] LABS: Glucose,Whole Blood 510 mg/dL (75-99)
[2019-09-23 20:05] LABS: Glucose,Whole Blood 504 mg/dL (75-99)
[2019-09-23] MEDS ORDERED: MIRTAZAPINE 15 MG TAB PO SCH (21:00)
[2019-09-23] MEDS ORDERED: ATORVASTATIN 10 MG TAB PO SCH (21:00)
[2019-09-23 23:58] LABS: Glucose,Whole Blood 423 mg/dL (75-99)
[2019-09-24] MEDS ORDERED: INSULIN ASPART (NovoLOG) 100 UNIT/ML VIAL SQ ONE (00:31)
[2019-09-24] MEDS: HEPARIN SODIUM,PORCINE 5,000 UNIT/ML 1 ML VIAL SQ SCH ×3 (00:37→16:13)
[2019-09-24 05:51] VITALS: TEMP 97.5
[2019-09-24 06:58] LABS: Glucose,Whole Blood 387 mg/dL (75-99)
[2019-09-24] MEDS: INSULIN DETEMIR (LEVEMIR) 100 UNIT/ML SYR SQ SCH (08:21)
[2019-09-24] MEDS: CYANOCOBALAMIN 500 MCG TAB PO SCH (08:21)
[2019-09-24] MEDS: MULTIVITAMINS, THERA 1 EACH TAB PO SCH (08:22)
[2019-09-24] MEDS: ASPIRIN 81 MG PO SCH (08:22)
[2019-09-24] MEDS: CLOPIDOGREL 75 MG TAB PO SCH (08:22)
[2019-09-24] MEDS: CARVEDILOL 12.5 MG TAB PO SCH ×2 (08:23→17:59)
[2019-09-24] MEDS: DEXAMETHASONE 4 MG TAB PO SCH ×2 (08:23→14:15)
[2019-09-24] MEDS: INSULIN ASPART (NovoLOG) 100 UNIT/ML VIAL SQ SCH ×3 (08:24→18:00)
[2019-09-24] MEDS ORDERED: PRIMIDONE 50 MG TAB PO SCH (09:00)
[2019-09-24 10:08] LABS: Hemoglobin A1C 8.1 % (4.0-6.0)
[2019-09-24 10:46] LABS: Potassium 4.3 mmol/L (3.5-5.1)
[2019-09-24 11:15] LABS: Glucose,Whole Blood 443 mg/dL (75-99)
[2019-09-24 12:05] VITALS: BP 148/68; PULSE 63; RESP 17
[2019-09-24] MEDS ORDERED: INSULIN REGULAR 100 UNIT/ML VIAL IV ONE (13:31)
[2019-09-24 15:00] LABS: Glucose,Whole Blood 494 mg/dL (75-99)
--- NOTE | 2019-09-24 16:50 | P.DS ---
Providers Date of admission: 09/23/19 14:52 Attending physician: Dereje Banks MD Consults: 09/22/19 19:23 Consult Physician Routine Consulting Provider: Geovanny Pete Consult Reason/Comments: arf Do you want consulting provider notified?: Yes 09/23/19 09:32 Consult Physician Urgent Consulting Provider: Rc Reed Consult Reason/Comments: spinal stenosis, unable to move lower extremities Do you want consulting provider notified?: Yes Primary care physician: David Hogan MD Hospital Course: Date of discharge: 09/24/2019 Admission diagnosis: Leg weakness and difficulties in ambulation Discharge diagnosis: 1. Bilateral awake weakness and difficulties in ambulation nonspecified patient transferred to [facility] in [place] for MRI of the spine 2. Type 2 diabetes mellitus with hyperglycemia 3. Acute on chronic kidney injury 4. diabetic peripheral neuropathy 5. Stage IV metastatic colorectal cancer History of present illness and Hospital course: This is a 74-year-old female with long-standing history of diabetes mellitus, diabetic neuropathy, diabetic nephropathy, lumbar spinal stenosis with multiple laminectomies in gait difficulties, colorectal cancer with liver metastases metastasis who presented to our institution with a complaint of worsening difficulties in ambulation due to leg pain and weakness bilaterally. Patient states that she's been using a cane for over 5 years but over the last few weeks her ambulation and walking became more difficult than over the last couple weeks she's been using a walker. Her primary care doctor is been trying to arrange for MRI of her spine on outpatient basis but this has not been done for scheduled yet. Patient now coming to emergency department with above complaints. On admission she was found to be hyperglycemic with acute kidney injury and mild elevation of calcium. Due to nonavailability of MRI over the weekend she just sits CT of the lumbar spine that showed moderate lumbar stenosis at several levels but no bone destructive lesions or osteolytic lesions. Patient was started on Decadron. She developed significant hyperglycemia. She states that strength in her legs is much better and she is able to lift her legs. Patient states that difficulties in ambulation and moving her legs predominantly coming from her legs being swollen and heavy. She has significant neuropathy lower extremities with burning like sensation throughout the day. She currently has Rick catheter with significant diuresis. She denies any urinary and stool incontinence otherwise she was evaluated by nephrology and pitting surgery. Orthopedic surgery has evaluated. I personally called, and the [facility] in [place] and contacted patient surgeon and arrange for patient transferred over there for MRI of the spine. Our institution despite lengthy discussion with them is not able to perform MRI consider not have a serial number and the brand name of her [id number] hence per hospital policy they cannot run MRI. [facility] in [place] review patient documentation and spoke with patient surgeon found MRI compatible [id number] and accepted the patient for transfer. This was disc ussed with Dr. Angel in the ER over there. Patient Condition at Discharge: Fair Plan - Discharge Summary Discharge Rx Participant: Yes New Discharge Prescriptions: Continue Primidone [Mysoline] 50 mg PO DAILY Clopidogrel [Plavix] 75 mg PO DAILY Aspirin 81 mg PO DAILY Carvedilol [Coreg*] 12.5 mg PO BID Cyanocobalamin (Vitamin B-12) [Vitamin B-12] 2,000 mcg PO DAILY Insulin Aspart [NovoLOG] See Protocol SQ AC-TID Insulin Detemir (Levemir) [Levemir] 36 unit SQ BID Vitamin C/Biotin [Hair, Skin and Nails] 1 tab PO DAILY Multivitamins, Thera [Multivitamin (formulary)] 1 tab PO DAILY Mirtazapine [Remeron] 7.5 mg PO HS #30 tab Acetaminophen Tab [Tylenol] 650 mg PO Q6HR PRN #30 tab PRN Reason: Fever And/ Or Pain Gabapentin [Neurontin] 300 mg PO TID PRN PRN Reason: Pain metFORMIN HCL ER [Glucophage Xr] 500 mg PO BID Rosuvastatin Calcium 5 mg PO HS Discontinued Potassium Chloride ER [K-Dur 20] 20 meq PO DAILY Spironolactone-Hctz 25-25Mg [Aldactazide 25-25 MG] 1 tab PO DAILY Torsemide [Demadex] 30 mg PO DAILY Discharge Medication List Aspirin 81 mg PO DAILY 03/04/14 [History] Carvedilol [Coreg*] 12.5 mg PO BID 03/04/14 [History] Clopidogrel [Plavix] 75 mg PO DAILY 03/04/14 [History] Primidone [Mysoline] 50 mg PO DAILY 03/04/14 [History] Cyanocobalamin (Vitamin B-12) [Vitamin B-12] 2,000 mcg PO DAILY 02/07/17 [History] Insulin Aspart [NovoLOG] See Protocol SQ AC-TID 05/19/19 [History] Insulin Detemir (Levemir) [Levemir] 36 unit SQ BID 05/19/19 [History] Multivitamins, Thera [Multivitamin (formulary)] 1 tab PO DAILY 05/19/19 [History] Vitamin C/Biotin [Hair, Skin and Nails] 1 tab PO DAILY 05/19/19 [History] Acetaminophen Tab [Tylenol] 650 mg PO Q6HR PRN #30 tab 05/23/19 [Rx] Mirtazapine [Remeron] 7.5 mg PO HS #30 tab 05/23/19 [Rx] Gabapentin [Neurontin] 300 mg PO TID PRN 09/22/19 [History] Rosuvastatin Calcium 5 mg PO HS 09/22/19 [History] metFORMIN HCL ER [Glucophage Xr] 500 mg PO BID 09/22/19 [History] Follow up Appointment(s)/Referral(s): David Hogan MD [Primary Care Provider] - 1-2 days Discharge Disposition: OTHER INSTITUTION NOT DEFINED Plan of Treatment: Transfer to [facility]
--- NOTE | 2019-09-24 16:51 | P.PN ---
Subjective Principal diagnosis: Leg weakness and hyperglycemia Chart was reviewed and patient was seen and examined. This is a 74-year-old female with long-standing history of diabetes mellitus, diabetic neuropathy, diabetic nephropathy, lumbar spinal stenosis with multiple laminectomies in gait difficulties, colorectal cancer with liver metastases metastasis who presented to our institution with a complaint of worsening difficulties in ambulation due to leg pain and weakness bilaterally. Patient states that she's been using a cane for over 5 years but over the last few weeks her ambulation and walking became more difficult than over the last couple weeks she's been using a walker. Her primary care doctor is been trying to arrange f or MRI of her spine on outpatient basis but this has not been done for scheduled yet. Patient now coming to emergency department with above complaints. On admission she was found to be hyperglycemic with acute kidney injury and mild elevation of calcium. Due to nonavailability of MRI over the weekend she just sits CT of the lumbar spine that showed moderate lumbar stenosis at several levels but no bone destructive lesions or osteolytic lesions. Patient was started on Decadron. She developed significant hyperglycemia. She states that strength in her legs is much better and she is able to lift her legs. Patient states that difficulties in ambulation and moving her legs predominantly coming from her legs being swollen and heavy. She has significant neuropathy lower extremities with burning like sensation throughout the day. She currently has Rick catheter with significant diuresis. She denies any urinary and stool incontinence otherwise she was evaluated by nephrology and pitting surgery. Since she has some improvement in her legs strength orthopedic surgery recommended possibility to postpone the MRI. Objective - Vital Signs Vital signs: Vital Signs Temp 97.5 F L 09/24/19 12:04 Pulse 63 09/24/19 12:04 Resp 17 09/24/19 12:04 BP 148/68 09/24/19 12:04 Pulse Ox 94 L 09/24/19 12:04 Intake & Output 09/23/19 09/24/19 09/24/19 18:59 06:59 18:59 Intake Total 250 290 Output Total 2825 1250 Balance -2575 -960 Weight 127.5 kg 130.5 kg Intake: Oral 250 290 Output: Urine 2825 1250 Uretheral (Rick) 1400 1250 Other: Voiding Method Indwelling Catheter Indwelling Catheter Indwelling Catheter - Constitutional General appearance: Present: cooperative, no acute distress, obese - EENT Eyes: Present: EOMI, PERRLA ENT: Present: normal oropharynx - Respiratory Respiratory: bilateral: CTA - Cardiovascular Rhythm: regular Heart sounds: normal: S1, S2 - Gastrointestinal General gastrointestinal: Present: normal bowel sounds, soft. Absent: organomegaly, tenderness - Neurologic Neurologic: Present: CNII-XII intact - Musculoskeletal Musculoskeletal Comment(s): On physical examination lower extremities she is able to lift both legs while laying in bed and to hold for 5 seconds. She does not have any clonus in her ankles. She has diminished reflexes in her patellar's. She has decreased sensitivity to light touch and pinprick and she has allodynia in both feet. Upper extremities are in good strength without any tremor or rigidity. She does not have any tenderness over her lumbar spine currently. Musculoskeletal: Present: generalized weakness - Psychiatric Psychiatric: Present: A&O x's 3, appropriate affect - Labs CBC & Chem 7: 09/23/19 06:33 09/24/19 10:14 Labs: Abnormal Lab Results - Last 24 Hours (Table) 09/23/19 09/23/19 09/23/19 Range/Units 06:33 15:26 17:12 Sodium (137-145) mmol/L Chloride (98-107) mmol/L Carbon Dioxide (22-30) mmol/L BUN (7-17) mg/dL Creatinine (0.52-1.04) mg/dL Glucose (74-99) mg/dL POC Glucose (mg/dL) 578 H 510 H (75-99) mg/dL Hemoglobin A1c 8.1 H (4.0-6.0) % Calcium (8.4-10.2) mg/dL 09/23/19 09/23/19 09/24/19 Range/Units 20:01 23:57 06:56 Sodium (137-145) mmol/L Chloride (98-107) mmol/L Carbon Dioxide (22-30) mmol/L BUN (7-17) mg/dL Creatinine (0.52-1.04) mg/dL Glucose (74-99) mg/dL POC Glucose (mg/dL) 504 H 423 H 387 H (75-99) mg/dL Hemoglobin A1c (4.0-6.0) % Calcium (8.4-10.2) mg/dL 09/24/19 09/24/1919 Range/Units 10:14 11:13 14:41 Sodium 136 L (137-145) mmol/L Chloride 91 L (98-107) mmol/L Carbon Dioxide 32 H (22-30) mmol/L BUN 56 H (7-17) mg/dL Creatinine 1.19 H (0.52-1.04) mg/dL Glucose 478 H (74-99) mg/dL POC Glucose (mg/dL) 443 H 494 H (75-99) mg/dL Hemoglobin A1c (4.0-6.0) % Calcium 11.0 H (8.4-10.2) mg/dL Assessment and Plan Assessment: 1. Lower extremity weakness and gait difficulties This is of subacute to chronic presentation with recent worsening Patient reports that the back pain is about the stable since before next she has significant peripheral neuropathy and multiple laminectomies with CT showing moderate lumbar stenosis at several levels We're currently trying to obtain stat MRI in our institution. I discussed with [facility] since her oncologist's and surgeon is that institution. I received a trying to transfer the patient. Physician I discussed discussed the case with patient's surgeon and the radiology over there and they assured me that patient can undergo MRI despite having the [id number]. I relayed this message started MRI department and they're trying to arrange for stat MRI. Ba sed on the results further recommendations to follow. If MRI does not explain patient weakness in her legs we will obtain neurological consultation for further evaluation 2. Type 2 diabetes mellitus uncontrolled with long-term use of insulin currently with stress hyperglycemia Continue Levemir 40 units twice a day We will add NovoLog 10 units 3 times a day and before meals Due to poor response to multiple subcu insulin and will give 1 dose via IV 3. Acute on chronic kidney injury Creatinine has been improving with some hydration Nephrology is following Trying to control smoking diuresis 4. Acute on chronic debility Physical occupational therapy based on the results of MRI 5. Severe diabetic neuropathy 6. Morbid obesity 7. Stage IV colorectal cancer with liver's metastasis 8. Mild hypercalcemia Workup as per receiving facility I made multiple phone calls and discussion with our MRI department. They do not have official brand of patient [id number] hence they are not able to perform MRI and they will not run MRI on this patient. I called back: [facility] in [place] and they were agreeable to accept the patient for MRI. They discussed with patient's surgeon and they were reassured that [id number] is compatible with the MRI. Patient was transferred over there. I spoke with Dr. Angel in the ER who will be accepting the patient. She also told the patient her patient oncologist and surgeon Dr Claudia Rosales recently had a PET scan did not show any uptake in the spine. Time with Patient: Greater than 30
[2019-09-24 16:55] LABS: Glucose,Whole Blood 302 mg/dL (75-99)
[2019-09-24] MEDS ORDERED: INSULIN ASPART (NovoLOG) 100 UNIT/ML VIAL SQ SCH (17:30)
--- NOTE | 2019-09-24 18:01 | PN ---
PROGRESS NOTE The patient is seen for followup for chronic kidney disease. She is scheduled for an MRI today. Her diuretics are on hold. Creatinine is down to 1.19 from 1.3 yesterday. The patient has had good urine output. She has an indwelling catheter. PHYSICAL EXAMINATION: This morning, blood pressure was 121/69, heart rate 60 per minute. She is afebrile. Examination of the heart S1, S2. Examination of the lungs, bilateral breath sounds are heard. Abdomen is soft, nontender, obese. Examination of lower extremities shows no significant edema. Trace edema is noted. 3RD MATE exam grossly intact. LABS: From today, show sodium 136, potassium 4.3, BUN of 56, creatinine 1.19. ASSESSMENT: 1. Acute kidney injury prerenal currently improved. 2. Chronic kidney disease stage 3 secondary to nephrosclerosis. 3. Type 2 diabetes. 4. Metabolic alkalosis associated with recent diuresis. PLAN: No changes at this time. Continue to hold off on diuretics. We can likely resume lower dose on the diuretics tomorrow. MMODL / IJN: [id number] /
[2019-09-25] MEDS ORDERED: CYANOCOBALAMIN 500 MCG TAB PO SCH (21:00)
[2019-09-25] MEDS ORDERED: CLOPIDOGREL 75 MG TAB PO SCH (21:00)
[2019-09-25] MEDS ORDERED: MULTIVITAMINS, THERA 1 EACH TAB PO SCH (21:00)
--- NOTE | 2019-09-28 06:23 | CDI ---
Documentation Clarification Form Date: 10/19/2019 From: Cathryn De La Cruz/Chace Phone: If you have a question about this query, please contact Yolanda Hadley Quill Layer at [phone] between 8am and 5pm. Admit Date: 09/23/2019 2:52:00 PM Patient Name: Alycia Alvraez Visit Number: [id number] Discharge Date: 09/24/2019 9:02:00 PM ATTENTION: The Clinical Documentation Specialists (CDI) and [facility] Coding Staff appreciate your assistance in clarifying documentation. Please respond to the clarification below the line at the bottom and electronically sign. The CDI & [facility] Coding staff will review the response and follow-up if needed. Please note: Queries are made part of the Legal Health Record. If you have any questions, please contact the author of this message via ITS. Dr. Siegel: The patients principal diagnosis has not been clearly identified and requires clarification. H & P documents concerns for radicular process with spinal cord compression. Dischrg Sum.documents bilateral awake weakness and difficulty ambulating. She presented with the following difficulty ambulating, bilateral LE pain and weakness History/Risk factors: Diabetes with PVD, Polyneuropathy, spondylosis L2-L3-L4-L5, DDD lumbar, stenosis Lumbar Radiology findings: transferred to [place] for MRI Vital Signs: 98 F, 85 bpm, 16, 124/64, 92% RA Treatment: Improvement with steroid Consults: for acute and chronic renal failure Other tx: In your professional opinion, can you please clarify which diagnosis, after study, accounted for the patients presenting symptoms and was the reason chiefly responsible for the admission? In your professional opinion please clarify, difficulty ambulating and weakness due to: Spondylosis lumbar with radiculopathy DDD lumbar with radiculopathy Diabetic Peripheral neuropathy Spinal stenosis with cord compression Other Not enough clinical signs or symptoms to establish diagnosis here MTDD
== END 2019-09-24 21:02 | disposition short-term general hospital (02) | DRG 552 ==
LOC: EC 18:08 → 3NMEDONC 19:23 → OBSVTOIN 09-23 14:52
PROVIDERS: ADMIT Internal Medicine; ATTEND Internal Medicine
DX: M47.26 Other spondylosis with radiculopathy, lumbar region (principal); C19 Malignant neoplasm of rectosigmoid junction; Z68.41 Body mass index [BMI] 40.0-44.9, adult; E87.3 Alkalosis; E87.2 Acidosis; I69.354 Hemiplegia and hemiparesis following cerebral infarction affecting left non-dominant side; N17.9 Acute kidney failure, unspecified; C78.7 Secondary malignant neoplasm of liver and intrahepatic bile duct; I13.0 Hypertensive heart and chronic kidney disease with heart failure and stage 1 through stage 4 chronic kidney disease, or unspecified chronic kidney disease; E11.42 Type 2 diabetes mellitus with diabetic polyneuropathy; E11.21 Type 2 diabetes mellitus with diabetic nephropathy; E11.65 Type 2 diabetes mellitus with hyperglycemia; E66.01 Morbid (severe) obesity due to excess calories; T50.2X5A Adverse effect of carbonic-anhydrase inhibitors, benzothiadiazides and other diuretics, initial encounter; R03.1 Nonspecific low blood-pressure reading; I25.10 Atherosclerotic heart disease of native coronary artery without angina pectoris; I25.2 Old myocardial infarction; E11.51 Type 2 diabetes mellitus with diabetic peripheral angiopathy without gangrene; M48.061 Spinal stenosis, lumbar region without neurogenic claudication; M51.36 Other intervertebral disc degeneration, lumbar region; M79.604 Pain in right leg; M79.605 Pain in left leg; M79.89 Other specified soft tissue disorders; N18.3 Chronic kidney disease, stage 3 (moderate); R20.0 Anesthesia of skin; R26.2 Difficulty in walking, not elsewhere classified; R53.1 Weakness; R53.81 Other malaise; R60.9 Edema, unspecified; Z79.02 Long term (current) use of antithrombotics/antiplatelets; Z79.4 Long term (current) use of insulin; Z79.82 Long term (current) use of aspirin; Z79.899 Other long term (current) drug therapy; Z82.49 Family history of ischemic heart disease and other diseases of the circulatory system; Z83.3 Family history of diabetes mellitus; Z85.038 Personal history of other malignant neoplasm of large intestine; Z92.21 Personal history of antineoplastic chemotherapy; Z88.2 Allergy status to sulfonamides; Z88.8 Allergy status to other drugs, medicaments and biological substances; Z88.1 Allergy status to other antibiotic agents; Z91.040 Latex allergy status; Z88.0 Allergy status to penicillin; Z91.013 Allergy to seafood; Z91.81 History of falling; R25.1 Tremor, unspecified; G47.30 Sleep apnea, unspecified; Z99.89 Dependence on other enabling machines and devices; Z90.721 Acquired absence of ovaries, unilateral; M19.90 Unspecified osteoarthritis, unspecified site; E11.22 Type 2 diabetes mellitus with diabetic chronic kidney disease; I50.9 Heart failure, unspecified; N39.3 Stress incontinence (female) (male); Z80.0 Family history of malignant neoplasm of digestive organs; Z83.2 Family history of diseases of the blood and blood-forming organs and certain disorders involving the immune mechanism; Z83.49 Family history of other endocrine, nutritional and metabolic diseases
CPT/HCPCS: 71045; 72132; 80048; 83036; 85027; 93970; 99285

== ENCOUNTER 2020-05-30 08:34 | Day surgery (SDC) | payer MEDICARE ==
[~2020-05-30 08:34] MED LIST changes: +ALPRAZolam 0.25 MG TAB PO PRN; -ALPRAZolam 0.25 MG TAB PO STA; +ALPRAZolam 0.5 MG TAB PO PRN; +ASPIRIN 325 MG TAB PO STA; +ATORVASTATIN 80 MG TAB PO STA; -HYDROmorphone 1 MG/ML 1 ML SYRINGE IVP STA; -INSULIN LISPRO (humaLOG) 300 UNIT/3 ML VIAL SQ ONE; +NITROGLYCERIN SL TABS 0.4 MG TAB SUBLINGUAL PRN; +SODIUM CHLORIDE 0.9% 1,000 ML in EMPTY BAG 1 BAG IV ONE
[2020-05-30] MEDS ORDERED: INSULIN ASPART (NovoLOG) 100 UNIT/ML VIAL SQ ONE (09:30)
[2020-05-30] MEDS ORDERED: LIDOCAINE 1% INJ 10MG/ML (20 ML MDV) ONE (09:32)
[2020-05-30 09:41] LABS: Glucose,Whole Blood 262 mg/dL (75-99)
[2020-05-30] MEDS ORDERED: fentaNYL (PF) 50 MCG/ML 2 ML AMP ONE (09:48)
[2020-05-30] MEDS ORDERED: LIDOCAINE 1% INJ 10MG/ML (20 ML MDV) SQ ONE (09:53)
[2020-05-30] MEDS ORDERED: fentaNYL (PF) 50 MCG/ML 2 ML AMP IV ONE ×2 (09:54)
[2020-05-30] MEDS ORDERED: MIDAZOLAM 2 MG/2 ML VIAL IV ONE (09:54)
[2020-05-30] MEDS: NITROGLYCERIN 1000MCG/10ML SYRINGE INTRACORON ONE ×2 (10:04→10:14)
[2020-05-30] MEDS ORDERED: BIVALIRUDIN 250 MG in SODIUM CHLORIDE 0.9% 50 ML IV ONE ×2 (10:08→10:30)
[2020-05-30] MEDS ORDERED: BIVALIRUDIN BOLUS 250 MG/50 ML IV ONE (10:08)
[2020-05-30] MEDS ORDERED: MIDAZOLAM 2 MG/2 ML VIAL IVP ONE (10:21)
[2020-05-30] MEDS ORDERED: IOPAMIDOL-370 125ML BTL INJ ONE (10:27)
[2020-05-30] MEDS ORDERED: CLOPIDOGREL 75 MG TAB ONE (10:39)
[2020-05-30] MEDS ORDERED: NITROGLYCERIN SL TABS 0.4 MG TAB SUBLINGUAL PRN (10:46)
[2020-05-30] MEDS ORDERED: ATROPINE SULFATE 0.1 MG/ML 10ML SYRINGE IV PRN (10:46)
[2020-05-30] MEDS ORDERED: MAG HYDROX/AL HYDROX/SIMETH 30 ML CUP PO PRN (10:46)
[2020-05-30] MEDS ORDERED: RX INFO: IV CONTRAST WAS GIVEN 1 EACH MISC MISCELLANE PRN (10:46)
[2020-05-30] MEDS ORDERED: ZOLPIDEM 5 MG TAB PO PRN (10:46)
[2020-05-30] MEDS ORDERED: CLOPIDOGREL 75 MG TAB PO ONE (10:51)
[2020-05-30] MEDS ORDERED: IOPAMIDOL-370 100ML BTL INJ ONE (10:52)
[2020-05-30] MEDS ORDERED: SODIUM CHLORIDE 0.9% 1,000 ML IV SCH (11:00)
[2020-05-30] MEDS: INSULIN ASPART (NovoLOG) 100 UNIT/ML VIAL SQ SCH ×3 (11:46→17:26)
--- NOTE | 2020-05-30 12:20 | CC ---
CARDIAC CATHETERIZATION REPORT DATE OF SERVICE: 05/30/2020 PERFORMING PHYSICIAN: Enrrique Love MD. PROCEDURE PERFORMED: 1. Selective right and left coronary angiogram. 2. Left heart catheterization. 3. Successful stenting of the mid LAD using 3.0 x 18 mm Xience BREN with an excellent angiographic result and reduction of stenosis from 80% to 0%. INDICATION: This is a very pleasant 74-year-old female patient with coronary artery disease and prior stenting of the LAD, who was experiencing symptoms of chest discomfort with exertion concerning for severe underlying coronary artery disease. Because of that, a heart catheterization was advised. She also does have diabetes and hypertension and dyslipidemia. APPROACH: Right common femoral artery. COMPLICATION: None. LEVEL OF SEDATION: Sedation length 50 minutes. PROCEDURE DESCRIPTION: After obtaining an informed consent, the patient was brought to the cardiac cath laboratory technician. The right common femoral artery was cannulated using micropuncture technique and a micropuncture wire passed easily, then I placed a 6-Turkish sheath at the right groin. Selective right and left coronary angiogram achieved with JR4 and JL4 catheters. Left heart catheterization was performed using the JR4 catheter which crossed the aortic valve, then I did pullback across the valve. After that, I did intervene on the LAD, please see a separate paragraph for that. SELECTIVE CORONARY ANGIOGRAM: 1. The RCA is a medium caliber vessel, nondominant vessel and appeared to be angiographically normal. 2. The left main is a large caliber vessel. It is angiographically normal, it bifurcates into LCX and LAD. 3. The LCX is a large caliber vessel, it is a dominant vessel. 4. The proximal circumflex is normal and gives rise into an OM1 which appears to be normal, the mid circumflex is normal as well. The circumflex distally is normal and bifurcates into PDA and PLV branches, both appeared to be angiographically normal. 5. The LAD, the very proximal LAD has mild disease only. The mid LAD is stented, but distal to the stent, there was an area of narrowing appeared to be in the range of 80%. This is just distal to the bifurcation of a large diagonal branch which seems to be normal. the LAD distally appeared to be normal. 6. HEMODYNAMICS: The LVEDP was 12 mmHg with mild gradient across the aortic valve. The gradient across was 13 mmHg. 7. PCI of the LAD, Anticoagulation was initiated using Angiomax. Subsequently. I did engage the LAD using JL4 guide. I did wire it using a run-through wire. Balloon angioplasty was performed using 3.0 x 12 mm balloon. 8. Attempting advancing 3.0 x 18 mm Xience was unsuccessful. I attempted wiring the LAD using a aaksah wire with a run-through and whisper and that was unsuccessful. Finally, I was able to use a GuideLiner which gave me support to advance the stent to the LAD in the midportion where I did deploy the stent under fluoroscopic guidance, after it was positioned under fluoroscopic guidance as well and the stent was deployed under 12 atmospheres for 20 seconds. The following angiogram showing excellent angiographic results and the procedure was completed without any complication. CONCLUSION: 1. Patent stent in the mid LAD. Distal to the stented segment, there is a lesion, appeared to be in the range of 80%, which is a de Mani lesion. 2. I did perform successful stenting of the LAD as described above. 3. A 13 mm gradient across the aortic valve. POSTPROCEDURE MANAGEMENT: 1. Dual anti-platelet therapy. 2. Risk factors modifications. 3. Follow up with the patient. MMODL / IJN: [id number] /
[2020-05-30 14:52] LABS: Basophils # (A) 0.1 k/uL (0-0.2); Basophils % (A) 1 %; Eosinophils # (A) 0.2 k/uL (0-0.7); Eosinophils % (A) 4 %; HCT 35.1 % (34.0-46.0); HGB 11.4 gm/dL (11.4-16.0); Lymphocytes # (A) 1.4 k/uL (1.0-4.8); Lymphocytes % (A) 28 %; MCH 31.3 pg (25.0-35.0); MCHC 32.5 g/dL (31.0-37.0); MCV 96.5 fL (80.0-100.0); Mean Platelet Volume 7.5; Monocytes # (A) 0.3 k/uL (0-1.0); Monocytes % (A) 6 %; Neutrophils # (A) 3.1 k/uL (1.3-7.7); Neutrophils % (A) 59 %; Platelet Count 247 k/uL (150-450); RBC 3.63 m/uL (3.80-5.40); RDW 15.7 % (11.5-15.5); WBC 5.2 k/uL (3.8-10.6)
[2020-05-30 15:14] LABS: Potassium 3.5 mmol/L (3.5-5.1)
[2020-05-30 15:31] VITALS: BMI 44.2
[2020-05-30 16:43] LABS: Glucose,Whole Blood 121 mg/dL (75-99)
[2020-05-30] MEDS: GABAPENTIN 300 MG CAP PO SCH ×2 (16:54→20:56)
[2020-05-30] MEDS: POTASSIUM CHLORIDE ER 20 MEQ TAB.ER PO SCH (20:56)
[2020-05-30] MEDS: TORSEMIDE 20 MG TAB PO SCH (20:57)
[2020-05-30] MEDS: INSULIN DETEMIR (LEVEMIR) 100 UNIT/ML SYR SQ SCH (20:57)
[2020-05-30] MEDS ORDERED: NON FORMULARY DRUG (Vitamin C/Biotin [Hair, Skin And Nails] 1 TAB) PO SCH (21:00)
[2020-05-30] MEDS ORDERED: CYANOCOBALAMIN 500 MCG TAB PO SCH (21:00)
[2020-05-30] MEDS ORDERED: MULTIVITAMINS, THERA 1 EACH TAB PO SCH (21:00)
[2020-05-30] MEDS ORDERED: ASPIRIN 81 MG PO SCH (21:00)
[2020-05-30 21:33] LABS: Glucose,Whole Blood 169 mg/dL (75-99)
[2020-05-31 06:53] LABS: Glucose,Whole Blood 183 mg/dL (75-99)
[2020-05-31] MEDS: INSULIN DETEMIR (LEVEMIR) 100 UNIT/ML SYR SQ SCH (06:55)
[2020-05-31 07:05] VITALS: RESP 16
[2020-05-31] MEDS: GABAPENTIN 300 MG CAP PO SCH (08:15)
[2020-05-31] MEDS: TORSEMIDE 20 MG TAB PO SCH (08:15)
[2020-05-31] MEDS: POTASSIUM CHLORIDE ER 20 MEQ TAB.ER PO SCH (08:15)
[2020-05-31] MEDS: INSULIN ASPART (NovoLOG) 100 UNIT/ML VIAL SQ SCH (08:16)
[2020-05-31] MEDS ORDERED: CLOPIDOGREL 75 MG TAB PO SCH (09:00)
[2020-05-31] MEDS ORDERED: PRIMIDONE 50 MG TAB PO SCH (09:00)
[2020-05-31] MEDS ORDERED: SPIRONOLACTONE-HCTZ 25-25MG 1 EACH TAB PO SCH (09:00)
[2020-05-31 09:06] VITALS: BP 122/69; PULSE 73; TEMP 97.4
--- NOTE | 2020-05-31 10:07 | DS ---
DISCHARGE SUMMARY DATE OF ADMISSION: 05/30/2020 DATE OF DISCHARGE: 05/31/2020. BRIEF HISTORY: This is a 74-year-old female patient with history of coronary artery disease and prior stenting of the LAD, who was experiencing symptoms of chest discomfort concerning for angina. She underwent heart catheterization yesterday and she was found to have severe disease involving the mid LAD. She underwent successful stenting of the mid LAD with an excellent angiographic results and without any complication. PLAN: The patient is going to be discharged home on dual anti-platelet therapy and statin and I will follow up with the patient next week at [place]. MMSHELDONL / IJN: [id number] /
[2020-05-31] MEDS ORDERED: ATORVASTATIN 10 MG TAB PO SCH (21:00)
== END 2020-05-31 11:08 | disposition home or self-care (01) ==
LOC: CATHCVL 08:34 → 3NCARDOBS 10:39 → CATHCVL 05-31 11:08
PROVIDERS: ATTEND Internal Medicine Interventional Cardiology
DX: I25.110 Atherosclerotic heart disease of native coronary artery with unstable angina pectoris (principal); I10 Essential (primary) hypertension; E78.5 Hyperlipidemia, unspecified; E11.9 Type 2 diabetes mellitus without complications; E78.00 Pure hypercholesterolemia, unspecified; Z95.5 Presence of coronary angioplasty implant and graft
CPT/HCPCS: 93458; 80048; 82565; 85025; C9600; C1760; C1769 ×4; C1887 ×2; C1725 ×2; C1894; C1874; J2250; J2001; J3010; J0583; Q9967 ×2

== ENCOUNTER 2021-03-24 15:32 | Inpatient (IN) | payer MEDICARE ==
[2021-03-25 11:04] VITALS: PULSE 70
[2021-03-25 15:57] VITALS: BP 136/82; RESP 18; TEMP 97.9
== END 2021-03-25 18:52 | disposition home health service (06) | DRG 309 ==
LOC: 3SCARD 18:47
PROVIDERS: ADMIT Internal Medicine; ATTEND Internal Medicine
DX: I48.0 Paroxysmal atrial fibrillation (principal); Z68.41 Body mass index [BMI] 40.0-44.9, adult; E78.5 Hyperlipidemia, unspecified; E66.9 Obesity, unspecified; G47.33 Obstructive sleep apnea (adult) (pediatric); I11.0 Hypertensive heart disease with heart failure; E11.65 Type 2 diabetes mellitus with hyperglycemia; I25.10 Atherosclerotic heart disease of native coronary artery without angina pectoris; Z20.822 Contact with and (suspected) exposure to COVID-19; I50.9 Heart failure, unspecified; I25.2 Old myocardial infarction; Z96.653 Presence of artificial knee joint, bilateral; H26.9 Unspecified cataract; M19.90 Unspecified osteoarthritis, unspecified site; M54.9 Dorsalgia, unspecified; F32.9 Major depressive disorder, single episode, unspecified; Z79.01 Long term (current) use of anticoagulants; Z79.4 Long term (current) use of insulin; Z92.21 Personal history of antineoplastic chemotherapy; Z90.710 Acquired absence of both cervix and uterus; Z90.49 Acquired absence of other specified parts of digestive tract; Z87.891 Personal history of nicotine dependence; Z85.05 Personal history of malignant neoplasm of liver; Z85.038 Personal history of other malignant neoplasm of large intestine; Z80.0 Family history of malignant neoplasm of digestive organs; Z95.5 Presence of coronary angioplasty implant and graft; Z79.899 Other long term (current) drug therapy; Z80.3 Family history of malignant neoplasm of breast; Z82.49 Family history of ischemic heart disease and other diseases of the circulatory system; Z83.3 Family history of diabetes mellitus
CPT/HCPCS: 80048; 81003; 83735; 84443; 84484; 85025; 85610; 85730; 93306

== ENCOUNTER 2024-08-20 23:38 | Observation (INO) | payer MEDICARE ==
[2024-08-21 00:24] LABS: Glucose,Whole Blood 86 mg/dL (70-110)
--- NOTE | 2024-08-21 01:39 | ED ---
Arrhythmia/Palpitations HPI - General Chief Complaint: Arrhythmia/Palpitations Stated Complaint: Chest Pain Time Seen by Provider: 08/20/24 23:50 Source: patient, EMS Mode of arrival: EMS Limitations: no limitations - History of Present Illness Initial Comments: 79-year-old female with PMH of afib on eliquis, DM on insulin, CAD, who presents to the emergency department as a transfer from [facility]. She went into [place] for general fatigue and myalgias which began 6 hours prior. Reports symptoms of hypoglycemia and unable to obtain a blood sugar greater than 64. She admitted to [facility]. She was seen and evaluated and had laboratory studies and a CT of her chest performed. Glucose was 56. Troponin was 18.1. This is high-sensitivity. Patient had 3+ bacteria in her urine. Chest was performed which demonstrated no pulmonary embolism. Atherosclerotic vascular disease. Patient was given a fluid bolus, 324 aspirin and her home dose of Eliquis. They were concerned for V. tach which they felt they withnessed on the bedside monitor. They administered 1 g of magnesium and recommended transfer to our facility as the patients signal and communications maintainer is here, Dr. Love. Denies any urinary symptoms to include burning, bladder frequency. No fevers, chills or cough. No other alleviating, precipitating modifying factors - Related Data Home Medications Medication Instructions Recorded Confirmed Clopidogrel [Plavix] 75 mg PO HS 03/04/14 03/24/21 Primidone [Mysoline] 50 mg PO DAILY 03/04/14 03/24/21 Gabapentin 600 mg PO TID 05/23/20 03/24/21 Potassium Chloride ER [K-Dur 20] 20 meq PO BID 05/30/20 03/24/21 Bumetanide [BUMEX] 1 mg PO DAILY 03/24/21 03/24/21 Insulin Aspart [NovoLOG Flexpen] See Protocol SQ AC-TID 03/24/21 03/24/21 Insulin Detemir [Levemir Flextouch 42 units SQ BID 03/24/21 03/24/21 Pen] Magnesium 250 mg PO DAILY 03/24/21 03/24/21 [id number] Acid 1 cap PO HS 03/24/21 03/24/21 [-U Capsule (formulary)] Spironolactone [Aldactone] 25 mg PO DAILY 03/24/21 03/24/21 allopurinoL [Zyloprim] 300 mg PO DAILY 03/24/21 03/24/21 predniSONE [Deltasone] 20 mg PO BID PRN 03/24/21 03/24/21 Previous Rx's Medication Instructions Recorded Atorvastatin [Lipitor] 10 mg PO HS 30 Days #30 tab 03/25/21 Enoxaparin [Lovenox] 130 mg SQ Q12H #10 syringe 03/25/21 Metoprolol Tartrate [Lopressor] 25 mg PO BID 30 Days #60 tab 03/25/21 Ofloxacin 0.3% Ophth Soln [Ocuflox 1 drops LEFT EYE QID 5 Days #7 ml 03/25/21 Ophth Soln] Warfarin [Coumadin] 5 mg PO DAILY #90 tab 03/25/21 Allergies Allergy/AdvReac Type Severity Reaction Status Date / Time latex Allergy Rash/Hives Verified 03/24/21 19:51 levofloxacin [From Levaquin] Allergy SEVERE Verified 03/24/21 19:51 MUSCLE PAIN losartan [Losartan] Allergy Rash/Hives Verified 03/24/21 19:51 Penicillins Allergy Rash/Hives Verified 03/24/21 19:51 shellfish derived Allergy Itching Verified 03/24/21 19:51 Sulfa (Sulfonamide Allergy Rash/Hives Verified 03/24/21 19:51 Antibiotics) ADHESIVE TAPE Allergy PEELS SKIN Uncoded 05/23/20 15:34 steroids AdvReac Severe SEVERE Uncoded 05/23/20 15:34 PAIN AFTER SHE STOPS TAKING. martin AdvReac Rash/Hives Uncoded 05/23/20 15:34 Review of Systems ROS Statement: Those systems with pertinent positive or pertinent negative responses have been documented in the HPI. ROS Other: All systems not noted in ROS Statement are negative. Past Medical History Past Medical History: Atrial Fibrillation, Coronary Artery Disease (CAD), Cancer, Chest Pain / Angina, Heart Failure, CVA/TIA, Diabetes Mellitus, Hyperlipidemia, Hypertension, Myocardial Infarction (UT), Osteoarthritis (OA), Renal Disease, Sleep Apnea/CPAP/BIPAP, Syncope Additional Past Medical History / Comment(s): HX OF CVA WITH LEFT SIDED WEAKN ESS, BALANCE PROBLEMS & HX OF FALLS, ESSSENTIAL TREMORS, USES walker, HX OF PERITONITIS FROM RUPTURED OVARY, NOT USING C-PAP DUE TO ALLERGIES, BACK PAIN, ANEMIA, STRESS INCONTINENCE. BOWEL Ca with mets to liver, chemo last 03/2018, CKD stage 3, neuropathy Last Myocardial Infarction Date:: 2007 History of Any Multi-Drug Resistant Organisms: None Reported Past Surgical History: Appendectomy, Back Surgery, Bowel Resection, Cholecystectomy, Heart Catheterization With Stent, Hysterectomy, Joint Replacement, Orthopedic Surgery, Tonsillectomy Additional Past Surgical History / Comment(s): UGO KNEE REPLACEMENT, HT STENT X1, EXPLORATORY FOR RUPTURED OVARY. ANTERIOR RESECTION, "part of liver removed" lower lumbar Surgery. stent LAD 05/30/20, chemo port. Past Anesthesia/Blood Transfusion Reactions: Previous Problems w/ Anesthesia Additional Past Anesthesia/Blood Transfusion Reaction / Comment(s): HALLUCINATIONS AFTER BACK SURGERY. STATES SHE HAD UT DUE TO BLOOD TRANSFUSION Date of Last Stent Placement:: 02/2014 Past Psychological History: Anxiety, Depression Smoking Status: Former smoker Past Alcohol Use History: Rare Past Drug Use History: None Reported - Past Family History Father Family Medical History: Cancer, Thyroid Disorder Additional Family Medical History / Comment(s): COLON CANCER, HASHIMOTOS,ENLARGED HEART Mother Family Medical History: Diabetes Mellitus, Deep Vein Thrombosis (DVT), Thyroid Disorder Additional Family Medical History / Comment(s): HASHIMOTOS Sister(s) Family Medical History: Cancer, Congestive Heart Failure (CHF) Additional Family Medical History / Comment(s): BREAST CANCER Brother(s) Family Medical History: Cancer Additional Family Medical History / Comment(s): COLON CANCER General Exam Limitations: no limitations General appearance: alert, in no apparent distress Head exam: Present: atraumatic, normocephalic, normal inspection Eye exam: Present: normal appearance, PERRL, EOMI. Absent: scleral icterus, conjunctival injection, periorbital swelling ENT exam: Present: normal exam, mucous membranes moist Neck exam: Present: normal inspection. Absent: tenderness, meningismus, lymphadenopathy Respiratory exam: Present: normal lung sounds bilaterally. Absent: respiratory distress, wheezes, rales, rhonchi, stridor Cardiovascular Exam: Present: regular rate, normal rhythm, normal heart sounds. Absent: systolic murmur, diastolic murmur, rubs, gallop, clicks GI/Abdominal exam: Present: soft, normal bowel sounds. Absent: distended, tenderness, guarding, rebound, rigid Extremities exam: Present: normal inspection, full ROM, normal capillary refill. Absent: tenderness, pedal edema, joint swelling, calf tenderness Back exam: Present: normal inspection Neurological exam: Present: alert, oriented X3, CN II-XII intact Psychiatric exam: Present: normal affect, normal mood Skin exam: Present: warm, dry, intact, normal color. Absent: rash Course Vital Signs 08/20/24 08/21/24 08/21/24 23:46 00:00 00:23 Temperature 99.4 F Pulse Rate 89 87 Pulse Rate [ 101 H Hospitalist Nocturnist Physician ] Respiratory 20 24 Rate Blood Pressure 121/63 121/63 O2 Sat by Pulse 90 L 92 L Oximetry 08/21/24 08/21/24 08/21/24 01:00 02:00 02:10 Temperature 98.8 F Pulse Rate 89 92 Pulse Rate [ Hospitalist Nocturnist Physician ] Respiratory 19 15 Rate Blood Pressure 127/69 127/69 O2 Sat by Pulse 94 L 94 L Oximetry 08/21/24 03:00 Temperature Pulse Rate 72 Pulse Rate [ Hospitalist Nocturnist Physician ] Respiratory 18 Rate Blood Pressure 121/67 O2 Sat by Pulse 93 L Oximetry Medical Decision Making - Medical Decision Making Was pt. sent in by a medical professional or institution ([facility], [employer], urgent ca re, hospital, or usp...) When possible be specific @ -Patient sent from [facility] Did you speak to anyone other than the patient for history (EMS, parent, family, police, friend...)? What history was obtained from this source @ -Spoke with transferring EMS Did you review nursing and triage notes (agree or disagree)? Why? @ -I reviewed and agree with nursing and triage notes Were old charts reviewed (outside hosp., previous admission, EMS record, old EKG, old radiological studies, urgent care reports/EKG's, usp records)? Report findings @ -I reviewed the chart from [facility] Differential Diagnosis (chest pain, altered mental status, abdominal pain women, abdominal pain men, vaginal bleeding, weakness, fever, dyspnea, syncope, headache, dizziness, GI bleed, back pain, seizure, CVA, palpatations, mental health, musculoskeletal)? @ -Differential Palpitations Ventricular arrhythmias, atrial arrhythmias, myocardial infarction, anemia, thyrotoxicosis, electrolyte imbalance, hypokalemia, pulmonary embolism, pulmonary disease, drugs, alcohol, anxiety, stress.... This is not meant to be an all-inclusive list. EKG interpreted by me (3pts min.). @ -Yes and demonstrates A-fib with a rate of 82. QRS 100. QTc of 409. ST depression V4 through V6. No acute ST segment elevation X-rays interpreted by me (1pt min.). @ -None done CT interpreted by me (1pt min.). @ -None done U/S interpreted by me (1pt. min.). @ -None done What testing was considered but not performed or refused? (CT, X-rays, U/S, labs)? Why? @ -None What meds were considered but not given or refused? Why? @ -None Did you discuss the management of the patient with other professionals (professionals i.e. , PA, [employer], lab, RT, psych nurse, social media project manager, rn building, te acher, ski patrol officer, patient case manager)? Give summary @ -Spoke with Dr. Choudhary for admission Was smoking cessation discussed for >3mins.? @ -No Was critical care preformed (if so, how long)? @ -No Were there social determinants of health that impacted care today? How? (Homelessness, low income, unemployed, alcoholism, drug addiction, transportation, low edu. Level, literacy, decrease access to med. care, nursing home, rehab)? @ -No Was there de-escalation of care discussed even if they declined (Discuss DNR or withdrawal of care, Hospice)? DNR status @ -Yes, patient is a DNR What co-morbidities impacted this encounter? (DM, HTN, Smoking, COPD, CAD, Cancer, CVA, ARF, Chemo, Hep., AIDS, mental health diagnosis, sleep apnea, morbid obesity)? @ -A-fib Was patient admitted / discharged? Hospital course, mention meds given and route, prescriptions, significant lab abnormalities, going to OR and other pertinent info. @ -Upon arrival patient seen and evaluated in bed 6. Thorough history and phys ical exam was performed. I did review the patient's transfer packet. It does demonstrate a low glucose. Glucose was rechecked and is normal here. She states that they did give her some peanut butter toast. Patient did have 3+ bacteria and nitrates in her urine. She was not given antibiotics. I did give her 1 g of Rocephin. I repeated a troponin level. I reviewed the EKG that was sent with the patient that does not appear to be ventricular tachycardia however patient will remain on the monitor and be admitted for cardiology consultation. I spoke with Dr. Choudhary for the admission Undiagnosed new problem with uncertain prognosis? @ -No Drug Therapy requiring intensive monitoring for toxicity (Heparin, Nitro, Insulin, Cardizem)? @ -No Were any procedures done? @ -No Diagnosis/symptom? @ -Acute chest pain, acute UTI Acute, or Chronic, or Acute on Chronic? @ -Acute Uncomplicated (without systemic symptoms) or Complicated (systemic symptoms)? @ -complicated Side effects of treatment? @ -No Exacerbation, Progression, or Severe Exacerbation? @ -No Poses a threat to life or bodily function? How? (Chest pain, USA, UT, pneumonia, PE, COPD, DKA, ARF, appy, cholecystitis, CVA, Diverticulitis, Homicidal, Suicidal, threat to staff... and all critical care pts) @ -No - Lab Data Result diagrams: 08/21/24 02:07 08/21/24 02:07 Lab Results 08/21/24 Range/Units 00:22 POC Glucose (mg/dL) 86 (70-110) mg/dL POC Glu Mobile Device Developer ID Achatz Melina Disposition Clinical Impression: UTI (urinary tract infection), Hypoglycemia, Afib, Chest pain Disposition: ADMITTED IP TO THIS HOSP Condition: Stable Is patient prescribed a controlled substance at d/c from ED?: No Time of Disposition: 01:56 Decision to Admit Reason: Admit from EC Decision Date: 08/21/24 Decision Time: 01:56
[2024-08-21] MEDS ORDERED: NALOXONE 0.4 MG/ML 1 ML VIAL IV PRN (01:59)
[2024-08-21] MEDS: cefTRIAXone IN SWFI 1,000 MG/10 ML SYRINGE IVP STA (02:26)
[2024-08-21 02:28] LABS: Anisocytosis Slight; Basophils % (A) 0 %; Eosinophils # (A) 0.2 k/uL (0-0.7); Eosinophils % (A) 3 %; HCT 31.9 % (34.0-46.0); HGB 10.7 gm/dL (11.4-16.0); Hypochromasia Slight; Lymphocytes # (A) 0.8 k/uL (1.0-4.8); Lymphocytes % (A) 13 %; MCH 34.1 pg (25.0-35.0); MCHC 33.6 g/dL (31.0-37.0); MCV 101.4 fL (80.0-100.0); Macrocytosis Slight; Mean Platelet Volume 8.3; Monocytes # (A) 0.4 k/uL (0-1.0); Monocytes % (A) 7 %; Neutrophils # (A) 4.4 k/uL (1.3-7.7); Neutrophils % (A) 76 %; Platelet Count 164 k/uL (150-450); RBC 3.15 m/uL (3.80-5.40); RDW 16.2 % (11.5-15.5); WBC 5.9 k/uL (3.8-10.6)
[2024-08-21 02:44] LABS: ALT 21 U/L (4-34); AST 31 U/L (14-36); African American GFR (CKD) 61 (>60 ml/min/1.73 sqM); Albumin 3.7 g/dL (3.5-5.0); Alkaline Phosphatase 137 U/L (38-126); Anion Gap 5 mmol/L; Blood Urea Nitrogen 27 mg/dL (7-17); Calcium 8.6 mg/dL (8.4-10.2); Carbon Dioxide 30 mmol/L (22-30); Chloride 104 mmol/L (98-107); Glucose 83 mg/dL (74-99); Non-African American GFR(CKD) 53 (>60 ml/min/1.73 sqM); Potassium 3.8 mmol/L (3.5-5.1); Sodium 139 mmol/L (137-145); Total Bilirubin 0.4 mg/dL (0.2-1.3); Total Protein 6.1 g/dL (6.3-8.2)
--- NOTE | 2024-08-21 03:15 | P.HPIM ---
History of Present Illness H&P Date: 08/21/24 Chief Complaint: Arrhythmia/palpitations History of present illness; 79-year-old female with A-fib currently on Plavix, diabetes mellitus on insulin, CAD with a history of cardiac catheterization and stent placement, gout maintained on allopurinol and a history of stage IV colon cancer presented emergency department as a transfer from [facility]. She originally presented to [facility] with generalized fatigue and myalgia which began 6 hours prior. States that she was very fatigued this morning, not awakening until approximately noon, which is very out of the ordinary for her, she states that time she made her and her breakfast, which she promptly vomited, and her blood sugar at that time was noted to be in the 50s. She states that she had some shortness of breath, some episodic chest pain and palpitations. Patient endorses some chills. At that time she was evaluated with laboratory studies, with a glucose of 56, and a CT of her chest performed. high sensitivity Troponin was 18.1 and the patient at 3.8. Her urine. CT vicki ography of the chest performed which demonstrated no evidence of pulmonary embolism. At this time patient was given fluid bolus, 324 aspirin and her home dose of Eliquis. They report the patient had episode of ventricular tachycardia believed to be noted on bedside monitor, they administered 1 g of magnesium and recommended transfer to our facility as the patient follows up with Dr. Gan, and has in the past with Dr. Zarate as well. At this time patient denies any urinary symptoms, no fevers, chills or cough. She does state that her legs have become increasingly swollen, with increased pain. States that while she does generally have some edema, it is usually well-controlled with her 1 mg Bumex daily, however she has received copious amounts of fluid throughout the day today. patient claims she has been doing well up until yesterday , when she was not feeling well with some chest heaviness. she denies any history of heart attacks, but she does have history of cardiac stents. at baseline, she walks using a walker and denies any SOB while walking around the house. she is reporting leg edema and thinks its because of all the fluids she got at the hospital and has not had any proportionate urine output. Initial lab work done in the ER showed WBCs 5.9, Hgb 10.7, hct 31.9, MCV 101.4, PLT 164; sodium 139, potassium 3.8, BUN 27, creatinine 1.01, glucose 83, alkaline phosphatase 137, total protein 6.1; troponin currently pending at time of dictation EKG done in the ER currently pending at time of dictation Patient admitted to internal medicine service REVIEW OF SYSTEMS: CONSTITUTIONAL: No fever, no malaise. States she has been very fatigued today. HEENT: No recent visual problems or hearing problems. Denied any sore throat. CARDIOVASCULAR: Endorses intermediate chest pain and palpitations. PULMONARY: Had some shortness of breath this morning, has improved. GASTROINTESTINAL: No diarrhea, no nausea, no vomiting, no abdominal pain. NEUROLOGICAL: No headaches, no weakness, no numbness. HEMATOLOGICAL: Denies any bleeding or petechiae. GENITOURINARY: Denies any burning micturition, frequency, or urgency. MUSCULOSKELETAL/RHEUMATOLOGICAL: Endorses pain in lower extremities, described as a burning sensation ENDOCRINE: Denies any polyuria or polydipsia. The rest of the 14-point review of systems is negative. PHYSICAL EXAMINATION: GENERAL: The patient is alert and oriented x3, not in any acute distress. Well developed, well nourished. HEENT: No scleral icterus. No conjunctival pallor. Normocephalic, atraumatic. CARDIOVASCULAR: S1 and S2 present. irregular, systolic 3/6 murmurs, no rubs, or gallops. PULMONARY: Chest is clear to auscultation, no wheezing or crackles. ABDOMEN: Soft, nontender, nondistended, normoactive bowel sounds. No palpable organomegaly. MUSCULOSKELETAL: No joint swelling or deformity. EXTREMITIES: No cyanosis, clubbing. Bilateral pedal edema +1 NEUROLOGICAL: Gross neurological examination did not reveal any focal deficits. SKIN: No rashes. Assessment and plan 78-year-old female with A-fib currently on Plavix, diabetes mellitus on insulin, CAD with history of cardiac catheterization with stent placement and gout presents to the emergency department as a transfer for chest pain where she recently presented with symptoms of hypoglycemia, and was noted to have abnormal EKG findings. Transferred to this facility to have additional follow-up with cardiology, she follows up with Dr. Gan as an outpatient and has a history of following with Dr. Zarate. Admitted under the care of internal medicine. Atypical chest pain Troponin x 2 is negative continue to trend EKG no acute ST changes Patient received aspirin at [facility], continue daily aspirin Continue with Plavix Cardiology consult, Follows with Dr. Gan, has a history of cardiac catheterization with multiple stent placement History of CAD status post stents Most recent echocardiogram completed in 2020 showed ejection fraction 55-60% with severe dilation of the left atrium daily weight Chronic A-fib Verify home medications, awaiting confirmation on anticoagulation Cardiac monitoring Reporting of questionable tracing of V. tach while at [facility] for which she was given magnesium Electrolytes unremarkable potassium 3.8, magnesium pending Continue with metoprolol #Diabetes mellitus maintained on insulin with peripheral neuropathy Insulin sliding scale Resume Lantus Monitor for hypoglycemic episodes Patient states she takes 800 mg 3 times daily gabapentin for peripheral neuropathy Consistent carbohydrate diet #New onset urinary retention Patient has received copious amounts of fluids today throughout her stay at [facility] Patient has been catheterized, states she has the urge to urinate, however slow to produce any urine Monitor postvoid residual consider intermittent straight cathing for residual more than 250 cc Follow-up urine analysis rule out any underlying UTI Afebrile, white count 5.6 unremarkable Renal function unremarkable BUN 27 creatinine 1 Chronic anemia Hemoglobin 10.7 Patient denies any GI bleeding #Hypertension Resume patient's home metoprolol #Hyperlipidemia Resume patient's home medication rosuvastatin GI prohylaxis: Protonix 40 mg p.o. daily DVT prophylaxis: Lovenox 40 mg subcu daily awaiting home medication verification patient possibly be on oral anticoagulation for A-fib Continue to monitor vital signs, monitor CBC, monitor BMP, monitor troponin trend Continue telemetry monitoring. Continue with symptomatic treatment Resume home medication Dictation was produced using Gyst dictation software. please excuse any grammatical, word or spelling errors. Past Medical History Past Medical History: Atrial Fibrillation, Coronary Artery Disease (CAD), Cancer, Chest Pain / Angina, Heart Failure, CVA/TIA, Diabetes Mellitus, Hyperlipidemia, Hypertension, Myocardial Infarction (CT), Osteoarthritis (OA), R enal Disease, Sleep Apnea/CPAP/BIPAP, Syncope Additional Past Medical History / Comment(s): HX OF CVA WITH LEFT SIDED WEAKNESS, BALANCE PROBLEMS & HX OF FALLS, ESSSENTIAL TREMORS, USES walker, HX OF PERITONITIS FROM RUPTURED OVARY, NOT USING C-PAP DUE TO ALLERGIES, BACK PAIN, ANEMIA, STRESS INCONTINENCE. BOWEL Ca with mets to liver, chemo last 03/2018, CKD stage 3, neuropathy Last Myocardial Infarction Date:: 2007 History of Any Multi-Drug Resistant Organisms: None Reported Past Surgical History: Appendectomy, Back Surgery, Bowel Resection, Cholecystectomy, Heart Catheterization With Stent, Hysterectomy, Joint Replacement, Orthopedic Surgery, Tonsillectomy Additional Past Surgical History / Comment(s): UGO KNEE REPLACEMENT, HT STENT X1, EXPLORATORY FOR RUPTURED OVARY. ANTERIOR RESECTION, "part of liver removed" lower lumbar Surgery. stent LAD 05/30/20, chemo port. Past Anesthesia/Blood Transfusion Reactions: Previous Problems w/ Anesthesia Additional Past Anesthesia/Blood Transfusion Reaction / Comment(s): BARKER LLUCINATIONS AFTER BACK SURGERY. STATES SHE HAD CT DUE TO BLOOD TRANSFUSION Date of Last Stent Placement:: 02/2014 Past Psychological History: Anxiety, Depression Smoking Status: Former smoker Past Alcohol Use History: Rare Past Drug Use History: None Reported - Past Family History Father Family Medical History: Cancer, Thyroid Disorder Additional Family Medical History / Comment(s): COLON CANCER, HASHIMOTOS,ENLARGED HEART Mother Family Medical History: Diabetes Mellitus, Deep Vein Thrombosis (DVT), Thyroid Disorder Additional Family Medical History / Comment(s): HASHIMOTOS Sister(s) Family Medical History: Cancer, Congestive Heart Failure (CHF) Additional Family Medical History / Comment(s): BREAST CANCER Brother(s) Family Medical History: Cancer Additional Family Medical History / Comment(s): COLON CANCER Medications and Allergies Home Medications Medication Instructions Recorded Confirmed Type Clopidogrel [Plavix] 75 mg PO HS 03/04/14 03/24/21 History Primidone [Mysoline] 50 mg PO DAILY 03/04/14 03/24/21 History Gabapentin 600 mg PO TID 05/23/20 03/24/21 History Potassium Chloride ER [K-Dur 20] 20 meq PO BID 05/30/20 03/24/21 History Bumetanide [BUMEX] 1 mg PO DAILY 03/24/21 03/24/21 History Insulin Aspart [NovoLOG Flexpen] See Protocol SQ AC-TID 03/24/21 03/24/21 History Insulin Detemir [Levemir Flextouch 42 units SQ BID 03/24/21 03/24/21 History Pen] Magnesium 250 mg PO DAILY 03/24/21 03/24/21 History Ewd-Rpct-Dlmib Acid 1 cap PO HS 03/24/21 03/24/21 History [-U Capsule (formulary)] Spironolactone [Aldactone] 25 mg PO DAILY 03/24/21 03/24/21 History allopurinoL [Zyloprim] 300 mg PO DAILY 03/24/21 03/24/21 History predniSONE [Deltasone] 20 mg PO BID PRN 03/24/21 03/24/21 History Atorvastatin [Lipitor] 10 mg PO HS 30 Days #30 tab 03/25/21 Rx Enoxaparin [Lovenox] 130 mg SQ Q12H #10 syringe 03/25/21 Rx Metoprolol Tartrate [Lopressor] 25 mg PO BID 30 Days #60 tab 03/25/21 Rx Ofloxacin 0.3% Ophth Soln [Ocuflox 1 drops LEFT EYE QID 5 Days #7 ml 03/25/21 Rx Ophth Soln] Warfarin [Coumadin] 5 mg PO DAILY #90 tab 03/25/21 Rx Allergies Allergy/AdvReac Type Severity Reaction Status Date / Time latex Allergy Rash/Hives Verified 03/24/21 19:51 levofloxacin [From Levaquin] Allergy SEVERE Verified 03/24/21 19:51 MUSCLE PAIN losartan [Losartan] Allergy Rash/Hives Verified 03/24/21 19:51 Penicillins Allergy Rash/Hives Verified 03/24/21 19:51 shellfish derived Allergy Itching Verified 03/24/21 19:51 Sulfa (Sulfonamide Allergy Rash/Hives Verified 03/24/21 19:51 Antibiotics) ADHESIVE TAPE Allergy PEELS SKIN Uncoded 05/23/20 15:34 steroids AdvReac Severe SEVERE Uncoded 05/23/20 15:34 PAIN AFTER SHE STOPS TAKING. martin AdvReac Rash/Hives Uncoded 05/23/20 15:34 Physical Exam Vitals: Vital Signs Temp Pulse Pulse Resp BP Pulse Ox 08/21/24 02:10 98.8 F 08/21/24 01:00 89 19 127/69 94 L 08/21/24 00:23 101 H 08/21/24 00:00 87 24 121/63 92 L 08/20/24 23:46 99.4 F 89 20 121/63 90 L Intake and Output 08/20/24 08/20/24 08/21/24 14:59 22:59 06:59 Other: Weight 136.078 kg Results CBC & Chem 7: 08/21/24 02:07 08/21/24 02:07 Assessment and Plan Assessment: I have seen and evaluated the patient today. I Discussed the case with the resident and agree with the resident's findings I edited the assessment and plan as necessary as documented in the resident's note.
[2024-08-21] MEDS ORDERED: DEXTROSE 50% SYRINGE 50 ML IVP PRN ×2 (06:50)
[2024-08-21 07:35] LABS: Glucose,Whole Blood 138 mg/dL (70-110)
[2024-08-21] MEDS: INSULIN ASPART (NovoLOG) 100 UNIT/ML VIAL SQ SCH (07:35)
[2024-08-21] MEDS: PANTOPRAZOLE 40 MG TABLET PO SCH (08:10)
[2024-08-21] MEDS: GABAPENTIN 300 MG CAP PO SCH (08:10)
[2024-08-21] MEDS: ENOXAPARIN 40 MG/0.4 ML SYRINGE SQ SCH (08:10)
[2024-08-21] MEDS: METOPROLOL SUCCINATE (ER) 25 MG TAB.ER.24H PO SCH (08:10)
[2024-08-21] MEDS: INSULIN DETEMIR (LEVEMIR) 100 UNIT/ML SYR SQ SCH (08:11)
--- NOTE | 2024-08-21 08:23 | XR ---
EXAMINATION TYPE: XR chest 1V portable DATE OF EXAM: 08/21/2024 COMPARISON: 09/23/2019 CLINICAL INDICATION: Female, 79 years old with history of assess for pulmonary edema; , TECHNIQUE: XR chest 1V portable views of the chest. FINDINGS: Heart is enlarged. Left-sided central line. Atherosclerotic change aorta. Subsegmental changes left l olga base. Right lung clear. Diffuse osteopenia and arthropathy of the shoulders. No pneumothorax. Ret rocardiac subsegmental changes on the left.. IMPRESSION: 1. Left basilar atelectasis favored over pneumonia. Correlate clinically.. [facility], , 08/21/2024 8:20 AM
[2024-08-21] MEDS ORDERED: METOPROLOL TARTRATE 25 MG TAB PO SCH (09:00)
[2024-08-21] MEDS ORDERED: MECLIZINE 25 MG TAB PO PRN (09:04)
[2024-08-21] MEDS ORDERED: GABAPENTIN 800 MG PO SCH (09:15)
[2024-08-21] MEDS ORDERED: NON FORMULARY DRUG (Insulin Glargine,Hum.Rec.Anlog [Lantus Solostar Pen] 100 UNIT/ML Insul SQ SCH (09:15)
[2024-08-21] MEDS ORDERED: METOPROLOL SUCCINATE (ER) 25 MG TAB.ER.24H PO SCH (09:15)
[2024-08-21] MEDS: TORSEMIDE 20 MG TAB PO SCH (10:10)
[2024-08-21] MEDS: SPIRONOLACTONE 25 MG TAB PO SCH (10:10)
[2024-08-21] MEDS: PRIMIDONE 50 MG TAB PO SCH (10:11)
[2024-08-21] MEDS: RIVAROXABAN 15 MG TAB PO SCH (10:11)
[2024-08-21] MEDS: allopurinoL 300 MG TAB PO SCH (10:11)
[2024-08-21 12:13] LABS: Glucose,Whole Blood 248 mg/dL (70-110)
[2024-08-21 12:36] LABS: NT-Pro-B-Type Natriuretic Pept 2780 pg/mL
[2024-08-21] MEDS: FUROSEMIDE 10 MG/ML 4 ML VIAL IV SCH (12:46)
--- NOTE | 2024-08-21 13:04 | P.PN ---
Subjective Progress Note Date: 08/21/24 Hospital course: Patient is a very pleasant 79-year-old female with a past medical history of CAD status post stenting on Plavix, chronic persistent atrial fibrillation on anticoagulation with Xarelto, hypertension, hyperlipidemia, insulin-dependent diabetes mellitus, gout, and stage IV colon cancer. Patient presented to the hospital on 08/20/2024 as a transfer from [facility] where she initially presented with a chief complaint of generalized fatigue and myalgias accompanied by transient episodes of chest pain, shortness of breath and palpitations. Patient was found to be hypoglycemic with a blood glucose of 56 and a high-sensitivity troponin of 18.1. CTA of chest was completed negative for pulmonary emboli. At their facility patient reportedly had episode of ventricular tachycardia and was given 1 g of magnesium and transferred to our facility for further evaluation. Upon arrival to our facility, patient underw ent evaluation in the emergency department. Vital signs upon arrival show blood pressure 121/63, heart rate 89, respiratory rate 20, temp 99.4 F, and SpO2 of 90% on room air. EKG was completed showing atrial fibrillation with a controlled ventricular response of 82 bpm T wave inversion in the lateral leads I, aVL and V4 through V6. T wave inversion is new finding when compared to EKG completed 03/25/2024 on personal review, interpretation, and comparison. Chest x- ray showing left basilar atelectasis. Labs completed and reviewed. CBC showing macrocytic anemia with hemoglobin of 10.7 and MCV of 101.4. BMP unremarkable with exception of prerenal azotemia with BUN of 27. Blood glucose 83. Magnesium 2.0. Liver profile showing elevated alkaline phosphatase of 137. Troponin was 0.029. Patient admitted under our services with consultation to cardiology. Troponins were trended resulting at 0.029, 0.025, and 0.023. Physical exam: Vital signs reviewed and stable. General: Nontoxic, no distress and appears stated age. Obese. Derm: Skin warm and dry, normal coloration for ethnicity. Head: Atraumatic, normocephalic and symmetric. Eyes: EOM's intact, no lid lag, and anicteric sclera Mouth: no lip lesions, mucus membranes moist Cardiovascular: regular rate and rhythm with normal S1S2, soft systolic murmur, positive posterior tibial pulses bilaterally, and cap refill < 2 seconds. Lungs: Respirations even, regular, and unlabored on room air. Lungs diminished, no rhonchi, no rales, no wheezing, and no accessory muscle usage. Abdominal: soft, nontender to palpation, no guarding, no appreciable organomegaly Ext: ROM intact. No gross muscle atrophy, 1-2+ pitting bilateral lower extremity edema, no contractures Neuro: Speech clear, face symmetrical and CN II-XII grossly intact with no noted focal neuro deficits Psych: Alert and oriented to person, place, time, and situation. Appropriate and pleasant affect. Assessment and Plan of Care: Atypical chest pain and shortness of breath Ventricular tachycardia, patient had reported episode of ventricular tachycardia at [facility] unknown length of time to determine sustained versus nonsustained EKG changes, T wave inversion in lateral leads. Chronic atrial fibrillation with a controlled ventricular rate CAD status post stenting on Plavix Hypertension Hyperlipidemia -Cardiology consulted, appreciate recommendations -Telemetry monitoring - EKG was completed showing atrial fibrillation with a controlled ventricular response of 82 bpm T wave inversion in the lateral leads I, aVL and V4 through V6. T wave inversion is new finding when compared to EKG completed 03/25/2024 on personal review, interpretation, and comparison. -Troponins were trended resulting at 0.029, 0.025, and 0.023. proBNP 2780 -Obtain TSH with free T4 -Echocardiogram -Lipid profile and Hgb A1c with a.m. labs. -Continue daily medication regimen with Xarelto 15 mg daily, Aldactone 25 mg daily, primidone 50 mg daily, metoprolol 25 mg twice daily Lasix 40 mg daily, and Plavix 75 mg nightly. Insulin-dependent diabetes mellitus with hyperglycemia -Continue Levemir 42 units daily and placed patient on glycemic protocol with NovoLog sliding scale. -Follow-up on hemoglobin A1c. CODE STATUS: DNR/DNI DVT prophylaxis: Xarelto Anticipated discharge date: Pending clinical course Anticipated discharge place: Home Patient was seen independently by Nurse Pracitioner. This document was prepared using [employer] dictation software. Please allow for errors in stitchdowns toe former, while rare they do occur. Hever Centeno NP rendered care for this patient independently, reviewed the findings and plan as documented in the note above. I did not physically speak with or examine the patient on this date. . Objective - Vital Signs Vital signs: Vital Signs Temp 98.8 F 08/21/24 02:10 Pulse 82 08/21/24 07:20 Resp 18 08/21/24 07:20 BP 133/65 08/21/24 07:20 Pulse Ox 96 08/21/24 07:20 FiO2 Intake & Output 08/20/24 08/21/24 08/21/24 18:59 06:59 18:59 Weight 136.078 kg - Labs CBC & Chem 7: 08/21/24 02:07 08/21/24 02:07 Labs: Abnormal Lab Results - Last 24 Hours (Table) 08/21/24 08/21/24 08/21/24 Range/Units 02:07 02:07 07:33 RBC 3.15 L (3.80-5.40) m/uL Hgb 10.7 L (11.4-16.0) gm/dL Hct 31.9 L (34.0-46.0) % MCV 101.4 H (80.0-100.0) fL RDW 16.2 H (11.5-15.5) % Lymphocytes # 0.8 L (1.0-4.8) k/uL BUN 27 H (7-17) mg/dL POC Glucose (mg/dL) 138 H (70-110) mg/dL Alkaline Phosphatase 137 H (38-126) U/L Total Protein 6.1 L (6.3-8.2) g/dL
[2024-08-21] MEDS: NYSTATIN 100,000 UNIT/GM POWD 15 GM TOPICAL SCH (14:42)
[2024-08-21 15:14] LABS: Chol/HDL Ratio 2.36 Ratio; LDL Cholesterol,Calculated 46.5 mg/dL (0.0-131.0)
[2024-08-21 18:56] LABS: Glucose,Whole Blood 166 mg/dL (70-110)
[2024-08-21] MEDS ORDERED: ATORVASTATIN 10 MG TAB PO SCH (21:00)
[2024-08-21] MEDS: ATORVASTATIN 40 MG TAB PO SCH (21:19)
[2024-08-21] MEDS: CLOPIDOGREL 75 MG TAB PO SCH (21:19)
[2024-08-21 21:24] LABS: Glucose,Whole Blood 173 mg/dL (70-110)
[2024-08-22 01:51] LABS: Glucose,Whole Blood 101 mg/dL (70-110)
[2024-08-22 06:16] LABS: Glucose,Whole Blood 146 mg/dL (70-110)
[2024-08-22 08:52] LABS: Anisocytosis Slight; Basophils % (A) 0 %; Eosinophils # (A) 0.3 k/uL (0-0.7); Eosinophils % (A) 5 %; HCT 31.8 % (34.0-46.0); HGB 10.1 gm/dL (11.4-16.0); Hypochromasia Moderate; Lymphocytes # (A) 1.6 k/uL (1.0-4.8); Lymphocytes % (A) 22 %; MCH 32.8 pg (25.0-35.0); MCHC 31.8 g/dL (31.0-37.0); Macrocytosis Moderate; Mean Platelet Volume 8.3; Monocytes # (A) 0.5 k/uL (0-1.0); Monocytes % (A) 7 %; Neutrophils # (A) 4.6 k/uL (1.3-7.7); Neutrophils % (A) 65 %; Platelet Count 159 k/uL (150-450); RBC 3.09 m/uL (3.80-5.40); RDW 16.3 % (11.5-15.5); WBC 7.1 k/uL (3.8-10.6)
[2024-08-22 09:10] LABS: African American GFR (CKD) 68 (>60 ml/min/1.73 sqM); Anion Gap 8 mmol/L; Blood Urea Nitrogen 26 mg/dL (7-17); Calcium 9.5 mg/dL (8.4-10.2); Carbon Dioxide 31 mmol/L (22-30); Chloride 100 mmol/L (98-107); Glucose 157 mg/dL (74-99); Magnesium 1.9 mg/dL (1.6-2.3); Non-African American GFR(CKD) 59 (>60 ml/min/1.73 sqM); Potassium 3.8 mmol/L (3.5-5.1); Sodium 139 mmol/L (137-145)
--- NOTE | 2024-08-22 10:54 | CA ---
Transthoracic Echo Report Name: Alycia Alvarez Age: 79 Gender: F : 1945 Exam Date: 08/21/2024 14:53 Exam Location: [facility] Ht (in): 68 Wt (lb): 300 Ordering Physician: Khang Veloz MD Attending/Referring Phys: Cdl Bulk Driver Shikha Mondragon RDCS Procedure CPT: Indications: systolic murmur, CHF, Afib Cardiac Hx: Technical Quality: Fair Contrast 1: Total Dose (mL): Contrast 2: Total Dose (mL): MEASUREMENTS (Male / Female) Normal Values 2D ECHO LV Diastolic Diameter PLAX 4.3 cm 4.2 - 5.9 / 3.9 - 5.3 cm LV Systolic Diameter PLAX 2.4 cm IVS Diastolic Thickness 2.0 cm 0.6 - 1.0 / 0.6 - 0.9 cm LVPW Diastolic Thickness 1.4 cm 0.6 - 1.0 / 0.6 - 0.9 cm LV Relative Wall Thickness 0.8 RV Internal Dim ED PLAX 4.5 cm LVOT Diameter 1.7 cm LA Volume 118.3 cm??? 18 - 58 / 22 - 52 cm??? LA Volume Index 45.1 cm???/m??? 16 - 28 cm???/m??? M-MODE Aortic Root Diameter MM 3.5 cm LA Systolic Diameter MM 5.8 cm LA Ao Ratio MM 1.6 AV Cusp Separation MM 0.9 cm DOPPLER AV Peak Velocity 319.1 cm/s AV Peak Gradient 40.7 mmHg AV Mean Velocity 211.0 cm/s AV Mean Gradient 21.0 mmHg AV Velocity Time Integral 62.7 cm LVOT Peak Velocity 108.2 cm/s LVOT Peak Gradient 4.7 mmHg LVOT Velocity Time Integral 16.4 cm LVOT Stroke Volume 36.0 cm??? LVOT Stroke Volume Index 14.8 ml/m??? LVOT Cardiac Index 1110.8 cm???/min???m??? AV Area Cont Eq vti 0.6 cm??? AV Area Cont Eq pk 0.7 cm??? MV Area PHT 4.5 cm??? Mitral E Point Velocity 98.3 cm/s Mitral A Point Velocity 0.2 cm/s Mitral E to A Ratio 496.3 MV Deceleration Time 167.1 ms MV E' Velocity 7.7 cm/s Mitral E to MV E' Ratio 12.8 TR Peak Velocity 380.5 cm/s TR Peak Gradient 57.9 mmHg Right Ventricular Systolic Press 61.7 mmHg FINDINGS Left Ventricle Severely increased left ventricular wall thickness. Left ventricular cavity size normal. Normal left ventricular systolic function with no obvious regional wall motion abnormalities. Left ventricular ejection fraction is estimated at 45-50 %. Grade 2 diastolic dysfunction. Right Ventricle Severe right ventricular dilatation. Severe pulmonary hypertension. Right ventricular systolic pressure estimated at 62 mm hg. Right Atrium Moderate right atrial dilatation. Left Atrium Severely increased left atrial volume. Moderately increased left atrial area. Mitral Valve Mitral valve thickened. Moderate mitral annular calcification. Moderate mitral regurgitation. Aortic Valve Trileaflet aortic valve. Moderate aortic stenosis with a peak gradient of 41 mmHg and a mean gradient of 21 mmHg. No aortic regurgitation. Tricuspid Valve Structurally normal tricuspid valve. [id number] tricuspid regurgitation. Central jet of tricuspid regurgitation. Pulmonic Valve Structurally normal pulmonic valve. Trace pulmonic regurgitation. Pericardium No pericardial effusion. Aorta Normal size aortic root and proximal ascending aorta. CONCLUSIONS Mild LV systolic dysfunction with an ejection fraction of 45% Severe pulmonary hypertension with an RV systolic pressure of 62 mm Biatrial enlargement Severe right ventricular dilation dictation Moderate mitral regurgitation Moderate aortic stenosis Moderate to severe tricuspid regurgitation Previewed by: Dr. Ad Garcia MD (Electronically Signed) Final Date: 22 August 2024 10:53
[2024-08-22 11:11] LABS: Glucose,Whole Blood 318 mg/dL (70-110)
--- NOTE | 2024-08-22 12:06 | P.PN ---
Subjective Progress Note Date: 08/22/24 Hospital course: Patient is a very pleasant 79-year-old female with a past medical history of CAD status post stenting on Plavix, chronic persistent atrial fibrillation on anticoagulation with Xarelto, hypertension, hyperlipidemia, insulin-dependent diabetes mellitus, gout, and stage IV colon cancer. Patient presented to the hospital on 08/20/2024 as a transfer from [facility] where she initially presented with a chief complaint of generalized fatigue and myalgias accompanied by transient episodes of chest pain, shortness of breath and palpitations. Patient was found to be hypoglycemic with a blood glucose of 56 and a high-sensitivity troponin of 18.1. CTA of chest was completed negative for pulmonary emboli. At their facility patient reportedly had episode of ventricular tachycardia and was given 1 g of magnesium and transferred to our facility for further evaluation. Upon arrival to our facility, patient underw ent evaluation in the emergency department. Vital signs upon arrival show blood pressure 121/63, heart rate 89, respiratory rate 20, temp 99.4 F, and SpO2 of 90% on room air. EKG was completed showing atrial fibrillation with a controlled ventricular response of 82 bpm T wave inversion in the lateral leads I, aVL and V4 through V6. T wave inversion is new finding when compared to EKG completed 03/25/2024 on personal review, interpretation, and comparison. Chest x- ray showing left basilar atelectasis. Labs completed and reviewed. CBC showing macrocytic anemia with hemoglobin of 10.7 and MCV of 101.4. BMP unremarkable with exception of prerenal azotemia with BUN of 27. Blood glucose 83. Magnesium 2.0. Liver profile showing elevated alkaline phosphatase of 137. Troponin was 0.029. Patient admitted under our services with consultation to cardiology. Troponins were trended resulting at 0.029, 0.025, and 0.023. Physical exam: Patient was seen and fully evaluated at bedside this morning. She was resting in bed and currently reports mild shortness of breath and fatigue otherwise denies having any further episodes of chest pain or discomfort and denies any further episodes of palpitations. Vital signs reviewed and stable. General: Nontoxic, no distress and appears stated age. Obese. Derm: Skin warm and dry, normal coloration for ethnicity. Head: Atraumatic, normocephalic and symmetric. Eyes: EOM's intact, no lid lag, and anicteric sclera Mouth: no lip lesions, mucus membranes moist Cardiovascular: Irregularly irregular, systolic murmur, positive posterior tibial pulses bilaterally, and cap refill < 2 seconds. Lungs: Respirations even, regular, and unlabored on room air. Lungs diminished, no rhonchi, no rales, no wheezing, and no accessory muscle usage. Abdominal: soft, nontender to palpation, no guarding, no appreciable organomegaly Ext: ROM intact. No gross muscle atrophy, 1-2+ pitting bilateral lower extremity edema, no contractures Neuro: Speech clear, face symmetrical and CN II-XII grossly intact with no noted focal neuro deficits Psych: Alert and oriented to person, place, time, and situation. Appropriate and pleasant affect. Assessment and Plan of Care: Atypical chest pain and shortness of breath Ventricular tachycardia, patient had reported episode of ventricular tachycardia at [facility] unknown length of time to determine sustained versus nonsustained EKG changes, T wave inversion in lateral leads. Chronic atrial fibrillation with a controlled ventricular rate CAD status post stenting on Plavix Hypertension Hyperlipidemia -Cardiology evaluated and started patient on IV Lasix 40 mg IVP every 12 hours and discussed case in detail with cardiac GRAIN OPERATOR and awaiting further recommendations from field education coordinator. -Telemetry monitoring -EKG was completed showing atrial fibrillation with a controlled ventricular response of 82 bpm T wave inversion in the lateral leads I, aVL and V4 through V6. T wave inversion is new finding when compared to EKG completed 03/25/2024 on personal review, interpretation, and comparison. -Troponins were trended resulting at 0.029, 0.025, and 0.023. proBNP 2780 -TSH was normal findings at 0.983. -Echocardiogram completed showing a reduced EF of 45% with severe pulmonary hypertension and RV systolic pressure 62 mm, biatrial enlargement, and severe right ventricular dilation, moderate mitral regurgitation, moderate aortic stenosis, and moderate to severe tricuspid regurgitation. -Lipid profile unremarkable and Hgb A1c 6.9%. -Continue daily medication regimen with Xarelto 15 mg daily, Aldactone 25 mg daily, primidone 50 mg daily, metoprolol 25 mg twice daily Lasix 40 mg daily, and Plavix 75 mg nightly. Insulin-dependent diabetes mellitus with hyperglycemia -Continue Levemir 42 units daily along with glycemic protocol with NovoLog sliding scale. -Hemoglobin A1c 6.9%. Data and imaging reviewed: -Echocardiogram completed and reviewed showing a reduced EF of 45% with severe pulmonary hypertension and RV systolic pressure 62 mm, biatrial enlargement, and severe right ventricular dilation, moderate mitral regurgitation, moderate aortic stenosis, and moderate to severe tricuspid regurgitation. -Vital signs reviewed. Blood pressure 133/73, heart rate 67, respiratory rate 18, temp 97.6 F, and SpO2 of 97% on 2 L. -Morning labs reviewed. CBC showing stable macrocytic anemia with hemoglobin of 10.1 and MCV of 103.0. BMP showing mild hypercarbia with bicarb of 31 and prerenal azotemia with BUN of 26 and stable. Blood glucose 157. Magnesium 1.9. Calcium 9.5. CODE STATUS: DNR/DNI DVT prophylaxis: Xarelto Anticipated discharge date: Pending clinical course Anticipated discharge place: Home Patient was seen independently by Nurse Pracitioner. This document was prepared using [employer] dictation software. Please allow for errors in shop welder, while rare they do occur. Hever Centeno NP rendered care for this patient independently, reviewed the findings and plan as documented in the note above and agree with plan. I did not physically speak with or examine the patient on this date. Objective - Vital Signs Vital signs: Vital Signs Temp 98.4 F 08/22/24 03:24 Pulse 68 08/22/24 03:24 Resp 18 08/22/24 03:24 BP 128/61 08/22/24 03:24 Pulse Ox 99 08/22/24 03:24 FiO2 Intake & Output 08/21/24 08/22/24 08/22/24 18:59 06:59 18:59 Intake Total 10 Balance 10 Weight 138.5 kg Intake: IV 10 Invasive Line 2 10 Other: Voiding Method Diaper External Catheter # Voids 1 - Labs CBC & Chem 7: 08/22/24 07:48 08/22/24 07:48 Labs: Abnormal Lab Results - Last 24 Hours (Table) 08/21/24 08/21/24 08/21/24 Range/Units 05:37 12:12 18:54 POC Glucose (mg/dL) 248 H 166 H (70-110) mg/dL Hemoglobin A1c 6.9 H (<=6.0) % 08/21/24 08/22/24 Range/Units 21:22 06:14 POC Glucose (mg/dL) 173 H 146 H (70-110) mg/dL Hemoglobin A1c (<=6.0) %
--- NOTE | 2024-08-22 15:00 | P.CRDCN ---
History of Present Illness Consult date: 08/22/24 Reason for Consult (text): Chest pain, shortness of breath, ST at [place] History of present illness: This is a 79-year-old female patient of Dr. Lvoe with past medical history of coronary artery disease with prior stenting of the LAD and lower extremity PAD, paroxysmal atrial fibrillation, history of TIA, hypertension, dyslipidemia, ch ronic lower extremity edema, diabetes mellitus type 2. We have been asked to evaluate the patient for chest pain, shortness of breath, VT at [place]. Patient presented to [facility] due to fatigue and vomiting, blood sugar in her 50s and shortness of breath, episode of chest pain and palpitations. She had a CT angiogram of her chest that was negative for PE. It is reported the patient had episode of ventricular tachycardia and was given 1 g of magnesium and transferred to [facility]. Patient is seen today on the cardiac stepdown unit. Telemetry has been reviewed and no episodes of ventricular tachycardia. Blood pressure 130/69, heart rate 65, pulse ox 98% on 2 L nasal cannula. Patient has been started on IV Lasix 40 mg every 12 hours EKG: Atrial fibrillation with nonspecific ST changes, telemetry has been reviewed and no episodes of VT captured. Chest x-ray: Left basilar atelectasis. Laboratory studies: WBC 7.1, hemoglobin 10.1. Sodium 139, potassium 3.8, BUN 26 and creatinine 0.93. Troponin negative x 3. proBNP 2780. Triglycerides 102, cholesterol 116, LDL 46, HDL 49. TSH 0.983. Procalcitonin 0.09. Echocardiogram reveals EF of 45 to 50%, severe pulmonary hypertension with RVSP of 62 mm, biatrial enlargement, severe right ventricular dilatation, moderate mitral regurgitation, moderate aortic stenosis, moderate to severe tricuspid regurgitation. Home cardiac medications: Plavix 75 mg at bedtime, Toprol XL 25 mg twice daily, potassium chloride 20 mill equivalents 3 times daily, Xarelto 20 mg daily, rosuvastatin 20 mg at bedtime, Aldactone 25 mg daily, torsemide 50 mg twice daily. Cardiac catheterization performed 05/30/2020 revealed severe disease of the mid LAD distal stented segment, status post PCI of the mid LAD. Review Of Systems: At the time of my exam: CONSTITUTIONAL: Denies fever or chills. HEENT: Denies blurred vision, vision changes, or eye pain. Denies hemoptysis CARDIOVASCULAR: Denies chest pain. Denies orthopnea. Denies PND. Denies palpitations RESPIRATORY: Denies shortness of breath. GASTROINTESTINAL: Denies abdominal pain. Denies nausea or vomiting. HEMATOLOGIC: Denies bleeding disorders. GENITOURINARY: Denies any blood in urine. SKIN: Denies puritis. Denies rash. Physical examination: Gen: This is a 79-year-old morbidly obese female in no acute distress VS: reviewed HEENT: Head is atraumatic, normocephalic. Pupils equal, round. Sclerae is anicteric. NECK: Supple. No JVD. LUNGS: Clear to auscultation. No wheezes or rhonchi. No intercostal retractions. HEART: Regular rate and rhythm. Systolic murmur. ABDOMEN: Soft No tenderness. EXTREMITIES: No pedal edema. No calf tenderness. NEUROLOGICAL: Patient is awake, alert and oriented x3. Assessment: Nonsustained ventricular tachycardia reported at [facility] Atypical chest pain, acute coronary syndrome ruled out History of coronary artery disease with prior stenting of the LAD Lower extremity PAD Paroxysmal atrial fibrillation on Xarelto History of TIA Hypertension Dyslipidemia Diabetes mellitus type 2 Plan: Resume patient's home cardiac medications Change Xarelto to 20 mg Continue telemetry monitoring Discontinue IV Lasix and start patient on torsemide 20 mg twice daily oral Monitor FRANKLIN, daily weights, electrolytes and renal function Further recommendations to follow based upon clinical course Thank you kindly for this consultation. Nurse practitioner note has been reviewed, I agree with documented findings and plan of care. Patient was seen and examined. Past Medical History Past Medical History: Atrial Fibrillation, Coronary Artery Disease (CAD), Cancer, Chest Pain / Angina, Heart Failure, CVA/TIA, Diabetes Mellitus, Hyperlipidemia, Hypertension, Myocardial Infarction ([place]), Osteoarthritis (OA), Renal Disease, Sleep Apnea/CPAP/BIPAP, Syncope Additional Past Medical History / Comment(s): HX OF CVA WITH LEFT SIDED WEAKNESS, BALANCE PROBLEMS & HX OF FALLS, ESSSENTIAL TREMORS, USES WALKER, HX OF PERITONITIS FROM RUPTURED OVARY, NOT USING CPAP DUE TO ALLERGIES, BACK PAIN, ANEMIA, STRESS INCONTINENCE. BOWEL CA W/ LIVER METS, CHEMO LAST 03/2018, CKD STAGE III, NEUROPATHY Last Myocardial Infarction Date:: 2007 History of Any Multi-Drug Resistant Organisms: None Reported Past Surgical History: Appendectomy, Back Surgery, Bowel Resection, Cholecystectomy, Heart Catheterization With Stent, Hysterectomy, Joint Replacement, Orthopedic Surgery, Tonsillectomy Additional Past Surgical History / Comment(s): UGO KNEE REPLACEMENT, HT STENT X1, EXPLORATORY FOR RUPTURED OVARY, ANTERIOR RESECTION, "PART OF LIVER REMOVED", LOWER LUMBAR SURGERY, STENT LAD 05/30/20, CHEMO PORT Past Anesthesia/Blood Transfusion Reactions: Previous Problems w/ Anesthesia Additional Past Anesthesia/Blood Transfusion Reaction / Comment(s): HALLUCINATIONS AFTER BACK SURGERY,. STATES SHE HAD [place] DUE TO BLOOD TRANSFUSION Date of Last Stent Placement:: 02/2014 Past Psychological History: Anxiety, Depression Smoking Status: Former smoker Past Alcohol Use History: Rare Additional Past Alcohol Use History / Comment(s): SMOKED FOR 7 YEARS TEENAGER AND EARLY 20s Past Drug Use History: None Reported - Past Family History Father Family Medical History: Cancer, Thyroid Disorder Additional Family Medical History / Comment(s): COLON CANCER, HASHIMOTOS, ENLARGED HEART Mother Family Medical History: Diabetes Mellitus, Deep Vein Thrombosis (DVT), Thyroid Disorder Additional Family Medical History / Comment(s): HASHIMOTOS Sister(s) Family Medical History: Cancer, Congestive Heart Failure (CHF) Additional Family Medical History / Comment(s): BREAST CANCER Brother(s) Family Medical History: Cancer Additional Family Medical History / Comment(s): COLON CANCER Medications and Allergies Home Medications Medication Instructions Recorded Confirmed Type Clopidogrel [Plavix] 75 mg PO HS 03/04/14 08/21/24 History Primidone [Mysoline] 50 mg PO DAILY 03/04/14 08/21/24 History Potassium Chloride ER [K-Dur 20] 20 meq PO PC-TID 05/30/20 08/21/24 History Insulin Aspart [NovoLOG Flexpen] See Protocol SQ AC-TID 03/24/21 08/21/24 History Spironolactone [Aldactone] 25 mg PO DAILY 03/24/21 08/21/24 History allopurinoL [Zyloprim] 300 mg PO DAILY 03/24/21 08/21/24 History Gabapentin [Neurontin] 800 mg PO TID 08/21/24 08/21/24 History Insulin Glargine,Hum.rec.anlog 40 units SQ DAILY 08/21/24 08/21/24 History [Lantus Solostar Pen] Meclizine [Antivert] 25 mg PO DAILY PRN 08/21/24 08/21/24 History Metoprolol Succinate (ER) [Toprol 25 mg PO BID 08/21/24 08/21/24 History Xl] Nystatin 100,000 Unit/gm Powd 1 applic TOPICAL BID 08/21/24 08/21/24 History [Mycostatin Powder] Rivaroxaban [Xarelto] 20 mg PO DAILY 08/21/24 08/21/24 History Rosuvastatin [Crestor] 20 mg PO HS 08/21/24 08/21/24 History Torsemide [Demadex] 50 mg PO BID 08/21/24 08/21/24 History Allergies Allergy/AdvReac Type Severity Reaction Status Date / Time latex Allergy Rash/Hives Verified 08/21/24 07:45 levofloxacin [From Levaquin] Allergy SEVERE Verified 08/21/24 07:45 MUSCLE PAIN losartan [Losartan] Allergy Rash/Hives Verified 08/21/24 07:45 Penicillins Allergy Rash/Hives Verified 08/21/24 07:45 shellfish derived Allergy Itching Verified 08/21/24 07:45 Sulfa (Sulfonamide Allergy Rash/Hives Verified 08/21/24 07:45 Antibiotics) ADHESIVE TAPE Allergy PEELS SKIN Uncoded 08/21/24 07:45 steroids AdvReac Severe SEVERE Uncoded 08/21/24 07:45 PAIN AFTER SHE STOPS TAKING. martin AdvReac Rash/Hives Uncoded 08/21/24 07:45 Physical Exam Vitals: Vital Signs Temp Pulse Pulse Resp BP BP Pulse Ox 08/22/24 12:25 97.6 F 65 18 130/69 98 08/22/24 09:26 98 08/22/24 08:10 97.6 F 67 18 133/73 97 08/22/24 03:24 98.4 F 68 18 128/61 99 08/22/24 00:38 80 20 114/50 99 08/21/24 18:00 70 18 132/62 99 08/21/24 15:00 66 18 132/68 96 Intake and Output 08/21/24 08/22/24 08/22/24 22:59 06:59 14:59 Intake Total 10 240 Output Total 600 Balance 10 -360 Intake: IV 10 Invasive Line 2 10 Oral 240 Output: Urine 600 Other: Voiding Method Diaper Diaper External Catheter External Catheter # Voids 1 Weight 138.5 kg Results 08/22/24 07:48 08/22/24 07:48 Lipids 08/21/24 Range/Units 05:37 Triglycerides 102.00 (0.00-149.00) mg/dL Cholesterol 116.00 (0.00-200.00) mg/dL HDL Cholesterol 49.10 (40.00-60.00) mg/dL Cholesterol/HDL Ratio 2.36 Ratio CBC 08/22/24 Range/Units 07:48 WBC 7.1 (3.8-10.6) k/uL RBC 3.09 L (3.80-5.40) m/uL Hgb 10.1 L (11.4-16.0) gm/dL Hct 31.8 L (34.0-46.0) % Plt Count 159 (150-450) k/uL Comprehensive Metabolic Panel 08/22/24 Range/Units 07:48 Sodium 139 (137-145) mmol/L Potassium 3.8 (3.5-5.1) mmol/L Chloride 100 (98-107) mmol/L Carbon Dioxide 31 H (22-30) mmol/L BUN 26 H (7-17) mg/dL Creatinine 0.93 (0.52-1.04) mg/dL Glucose 157 H (74-99) mg/dL Calcium 9.5 (8.4-10.2) mg/dL Current Medications Generic Name Dose Route Start Last Admin Trade Name Freq PRN Reason Stop Dose Admin Acetaminophen 650 mg 08/21/24 02:04 Acetaminophen Tab 325 Mg Tab PO Q6HR PRN Mild Pain or Fever > 100.5 Allopurinol 300 mg 08/21/24 09:15 08/22/24 09:01 Allopurinol 300 Mg Tab PO 300 mg DAILY HAYDEN Administration Atorvastatin Calcium 40 mg 08/21/24 21:00 08/21/24 21:19 Atorvastatin 40 Mg Tab PO 40 mg HS HAYDEN Administration Clopidogrel Bisulfate 75 mg 08/21/24 21:00 08/21/24 21:19 Clopidogrel 75 Mg Tab PO 75 mg HS HAYDEN Administration Dextrose/Water 25 ml 08/21/24 06:50 Dextrose 50% Syringe 50 Ml IVP PER PROTOCOL PRN Hypoglycemia Protocol Dextrose/Water 50 ml 08/21/24 06:50 Dextrose 50% Syringe 50 Ml IVP PER PROTOCOL PRN Hypoglycemia Protocol Furosemide 40 mg 08/21/24 11:30 08/22/24 09:01 Furosemide 10 Mg/Ml 4 Ml Vial IV 40 mg Q12HR HAYDEN Administration Gabapentin 600 mg 08/21/24 09:00 08/22/24 09:00 Gabapentin 300 Mg Cap PO 600 mg TID HAYDEN Administration Insulin Aspart 0 unit 08/21/24 07:30 08/22/24 12:25 Insulin Aspart (Novolog) 100 Unit/Ml Vial SQ 12 unit ACHS HAYDEN Administration Protocol Insulin Detemir 42 unit 08/21/24 07:45 08/22/24 06:21 Insulin Detemir (Levemir) 100 Unit/Ml Syr SQ 42 unit DAILY@0700 HAYDEN Administration Meclizine HCl 25 mg 08/21/24 09:04 Meclizine 25 Mg Tab PO DAILY PRN Vertigo Metoprolol Succinate 25 mg 08/21/24 09:00 08/22/24 09:01 Metoprolol Succinate (Er) 25 Mg Tab.Er.24h PO 25 mg BID HAYDEN Administration Naloxone HCl 0.2 mg 08/21/24 01:59 Naloxone 0.4 Mg/Ml 1 Ml Vial IV Q2M PRN Opioid Reversal Nystatin 1 applic 08/21/24 09:15 08/22/24 09:01 Nystatin 100,000 Unit/Gm Powd 15 Gm TOPICAL 1 applic BID HAYDEN Administration Protocol Pantoprazole Sodium 40 mg 08/21/24 07:30 08/22/24 06:20 Pantoprazole 40 Mg Tablet PO 40 mg AC-BRKFST HAYDEN Administration Primidone 50 mg 08/21/24 09:15 08/22/24 09:01 Primidone 50 Mg Tab PO 50 mg DAILY HAYDEN Administration Rivaroxaban 15 mg 08/21/24 09:15 08/22/24 09:01 Rivaroxaban 15 Mg Tab PO 15 mg DAILY HAYDEN Administration Protocol Spironolactone 25 mg 08/21/24 09:15 08/22/24 09:01 Spironolactone 25 Mg Tab PO 25 mg DAILY HAYDEN Administration Intake and Output 08/21/24 08/22/24 08/22/24 22:59 06:59 14:59 Intake Total 10 240 Output Total 600 Balance 10 -360 Intake: IV 10 Invasive Line 2 10 Oral 240 Output: Urine 600 Other: Voiding Method Diaper Diaper External Catheter External Catheter # Voids 1 Weight 138.5 kg 08/22/24 07:48 08/22/24 07:48
[2024-08-22] MEDS ORDERED: FUROSEMIDE 20 MG TAB PO SCH (16:00)
[2024-08-22] MEDS ORDERED: TORSEMIDE 20 MG TAB PO SCH (16:00)
[2024-08-22 16:38] LABS: Glucose,Whole Blood 160 mg/dL (70-110)
[2024-08-22] MEDS: ACETAMINOPHEN TAB 325 MG TAB PO PRN (18:24)
[2024-08-22 20:48] LABS: Glucose,Whole Blood 207 mg/dL (70-110)
[2024-08-22] MEDS: FUROSEMIDE 10 MG/ML 4 ML VIAL IV SCH (20:48)
[2024-08-22] MEDS: AREDS EYE SUPPLEMENT PO SCH (20:53)
[2024-08-23 02:19] LABS: Glucose,Whole Blood 163 mg/dL (70-110)
[2024-08-23 05:45] LABS: Glucose,Whole Blood 151 mg/dL (70-110)
[2024-08-23 07:46] LABS: African American GFR (CKD) 69 (>60 ml/min/1.73 sqM); Anion Gap 6 mmol/L; Blood Urea Nitrogen 27 mg/dL (7-17); Calcium 9.6 mg/dL (8.4-10.2); Carbon Dioxide 31 mmol/L (22-30); Chloride 100 mmol/L (98-107); Glucose 151 mg/dL (74-99); Non-African American GFR(CKD) 60 (>60 ml/min/1.73 sqM); Potassium 3.9 mmol/L (3.5-5.1); Sodium 137 mmol/L (137-145)
[2024-08-23 09:40] VITALS: RESP 18
[2024-08-23] MEDS: RIVAROXABAN 20 MG TAB PO SCH (09:48)
[2024-08-23 11:00] VITALS: TEMP 97.7
--- NOTE | 2024-08-23 11:01 | P.DS ---
Providers Date of admission: 08/21/24 02:05 Expected date of discharge: 08/23/24 Attending physician: Peggy Kelley MD Consults: 08/21/24 09:11 Consult Physician Routine Consulting Provider: Khang Veloz Consult Reason/Comments: CP, SOB, and reported run of Sinus tach at [facility] Do you want consulting provider notified?: Yes Primary care physician: Ethan Urena MD Hospital Course: Discharge Diagnosis: Atypical chest pain and shortness of breath, acute coronary event ruled out. Ventricular tachycardia, patient had reported episode of ventricular tachycardia at [facility] unknown length of time to determine sustained versus nonsustained EKG changes, T wave inversion in lateral leads. Chronic atrial fibrillation with a controlled ventricular rate CAD status post stenting on Plavix Hypertension Hyperlipidemia Insulin-dependent diabetes mellitus with hyperglycemia Hospital course: Patient is a very pleasant 79-year-old female with a past medical history of CAD status post stenting on Plavix, chronic persistent atrial fibrillation on anticoagulation with Xarelto, hypertension, hyperlipidemia, insulin-dependent diabetes mellitus, gout, and stage IV colon cancer. Patient presented to the hospital on 08/20/2024 as a transfer from [facility] where she initially presented with a chief complaint of generalized fatigue and myalgias accompanied by transient episodes of chest pain, shortness of breath and palpitations. Patient was found to be hypoglycemic with a blood glucose of 56 and a high-sensitivity troponin of 18.1. CTA of chest was completed negative for pulmonary emboli. At their facility patient reportedly had episode of ventricular tachycardia and was given 1 g of magnesium and transferred to our facility for further evaluation. Upon arrival to our facility, patient underwent evaluation in the emergency department. Vital signs upon arrival show blood pressure 121/63, heart rate 89, respiratory rate 20, temp 99.4 F, and Sp O2 of 90% on room air. EKG was completed showing atrial fibrillation with a controlled ventricular response of 82 bpm T wave inversion in the lateral leads I, aVL and V4 through V6. T wave inversion is new finding when compared to EKG completed 03/25/2024 on personal review, interpretation, and comparison. Chest x- ray showing left basilar atelectasis. Labs completed and reviewed. CBC showing macrocytic anemia with hemoglobin of 10.7 and MCV of 101.4. BMP unremarkable with exception of prerenal azotemia with BUN of 27. Blood glucose 83. Magnesium 2.0. Liver profile showing elevated alkaline phosphatase of 137. Troponin was 0.029. Patient admitted under our services with consultation to cardiology. Troponins were trended resulting at 0.029, 0.025, and 0.023. Echocardiogram completed and reviewed showing a reduced EF of 45% with severe pulmonary hypertension and RV systolic pressure 62 mm, biatrial enlargement, and severe right ventricular dilation, moderate mitral regurgitation, moderate aortic stenosis, and moderate to severe tricuspid regurgitation. Patient remained on telemetry monitoring throughout hospitalization no further episodes of ventricular tachycardia were noted throughout hospitalization. Physician President recommending placement of 14-day event monitor, this was discussed with patient and patient states she would rather have completed at [facility] because she does not want to have to travel back and forth here to have event monitor removed and for follow-up. Patient free from any other complaints at this time. She is cleared from cardiology perspective for discharge and medically optimized for discharge home. Patient to follow-up outpatient with PCP in 1 to 2 days and with air motor repairer within the next week. Physical exam: Vital signs reviewed and stable. General: Nontoxic, no distress and appears stated age. Obese. Derm: Skin warm and dry, normal coloration for ethnicity. Head: Atraumatic, normocephalic and symmetric. Eyes: EOM's intact, no lid lag, and anicteric sclera Mouth: no lip lesions, mucus membranes moist Cardiovascular: Irregularly irregular, systolic murmur, positive posterior tibial pulses bilaterally, and cap refill < 2 seconds. Lungs: Respirations even, regular, and unlabored on room air. Lungs diminished, no rhonchi, no rales, no wheezing, and no accessory muscle usage. Abdominal: soft, nontender to palpation, no guarding, no appreciable organomegaly Ext: ROM intact. No gross muscle atrophy, scant bilateral lower extremity edema, no contractures Neuro: Speech clear, face symmetrical and CN II-XII grossly intact with no noted focal neuro deficits Psych: Alert and oriented to person, place, time, and situation. Appropriate and pleasant affect. A total of 39 minutes of time were spent preparing this complex discharge summary. Pt was discharged on at 10:58 AM. Patient was seen independently by Nurse Practitioner. This document was prepared using [employer] dictation software. Please allow for errors in hospital cook while rare they do occur. Hever Centeno NP rendered care for this patient independently, reviewed the findings and plan as documented in the note above. I did not physically speak with or examine the patient on this date. Patient Condition at Discharge: Stable Plan - Discharge Summary Discharge Rx Participant: No New Discharge Prescriptions: Continue Primidone [Mysoline] 50 mg PO DAILY Clopidogrel [Plavix] 75 mg PO HS Potassium Chloride ER [K-Dur 20] 20 meq PO PC-TID Spironolactone [Aldactone] 25 mg PO DAILY Rosuvastatin [Crestor] 20 mg PO HS Metoprolol Succinate (ER) [Toprol XL] 25 mg PO BID Nystatin 100,000 Unit/gm Powd [Mycostatin Powder] 1 applic TOPICAL BID Meclizine [Antivert] 25 mg PO DAILY PRN PRN Reason: Vertigo Gabapentin [Neurontin] 800 mg PO TID Insulin Aspart [NovoLOG Flexpen] See Protocol SQ AC-TID allopurinoL [Zyloprim] 300 mg PO DAILY Torsemide [Demadex] 50 mg PO BID Rivaroxaban [Xarelto] 20 mg PO DAILY Insulin Glargine,Hum.rec.anlog [Lantus Solostar Pen] 40 units SQ DAILY Discharge Medication List Clopidogrel [Plavix] 75 mg PO HS 03/04/14 [History] Primidone [Mysoline] 50 mg PO DAILY 03/04/14 [History] Potassium Chloride ER [K-Dur 20] 20 meq PO PC-TID 05/30/20 [History] Insulin Aspart [NovoLOG Flexpen] See Protocol SQ AC-TID 03/24/21 [History] Spironolactone [Aldactone] 25 mg PO DAILY 03/24/21 [History] allopurinoL [Zyloprim] 300 mg PO DAILY 03/24/21 [History] Gabapentin [Neurontin] 800 mg PO TID 08/21/24 [History] Insulin Glargine,Hum.rec.anlog [Lantus Solostar Pen] 40 units SQ DAILY 08/21/24 [History] Meclizine [Antivert] 25 mg PO DAILY PRN 08/21/24 [History] Metoprolol Succinate (ER) [Toprol XL] 25 mg PO BID 08/21/24 [History] Nystatin 100,000 Unit/gm Powd [Mycostatin Powder] 1 applic TOPICAL BID 08/21/24 [History] Rivaroxaban [Xarelto] 20 mg PO DAILY 08/21/24 [History] Rosuvastatin [Crestor] 20 mg PO HS 08/21/24 [History] Torsemide [Demadex] 50 mg PO BID 08/21/24 [History] Follow up Appointment(s)/Referral(s): Enrrique Love MD [STAFF PHYSICIAN] - 4 Weeks (Patient wants an appointment in [place] with any air motor repairer) Ethan Urena MD [Primary Care Provider] - 1-2 days Patient Instructions/Handouts: Chest Pain (DC), Urinary Tract Infection in Women (DC), Hypoglycemia in a Person with Diabetes (DC) Activity/Diet/Wound Care/Special Instructions: Activity: As tolerated. Take breaks as needed. Diet: Heart healthy and carb consistent diet. Avoid salts, or foods with hidden salts such as canned or boxed foods and frozen dinners. Extra salt makes your heart work harder and traps the fluid in your body for longer. Special Instructions: Take all of your medications as directed and remember to keep all of your doctor's appointments and follow-up as needed. As discussed with you in detail by air motor repairer, you will need to follow-up with your primary air motor repairer for event monitor placement at [facility] per your request to have done closer to home instead of having done here. Thank you for allowing us to participate in your care, it was truly a pleasure having you for our patient!!! . Discharge Disposition: HOME SELF-CARE
[2024-08-23] MEDS: DAPAGLIFLOZIN PROPANEDIOL 10 MG TABLET PO SCH (11:06)
[2024-08-23 11:43] LABS: Glucose,Whole Blood 196 mg/dL (70-110)
--- NOTE | 2024-08-23 14:00 | P.PN ---
Subjective Progress Note Date: 08/23/24 Reason for Consult (text): Chest pain, shortness of breath, ST at [place] History of present illness: This is a 79-year-old female patient of Dr. Love with past medical history of coronary artery disease with prior stenting of the LAD and lower extremity PAD, paroxysmal atrial fibrillation, history of TIA, hypertension, dyslipidemia, chronic lower extremity edema, diabetes mellitus type 2. We have been asked to evaluate the patient for chest pain, shortness of breath, VT at [place]. Patient presented to [facility] due to fatigue and vomiting, blood sugar in her 50s and shortness of breath, episode of chest pain and palpitat ions. She had a CT angiogram of her chest that was negative for PE. It is reported the patient had episode of ventricular tachycardia and was given 1 g of magnesium and transferred to [facility]. Patient is seen today on the cardiac stepdown unit. Telemetry has been reviewed and no episodes of ventricular tachycardia. Blood pressure 130/69, heart rate 65, pulse ox 98% on 2 L nasal cannula. Patient has been started on IV Lasix 40 mg every 12 hours EKG: Atrial fibrillation with nonspecific ST changes, telemetry has been reviewed and no episodes of VT captured. Chest x-ray: Left basilar atelectasis. Laboratory studies: WBC 7.1, hemoglobin 10.1. Sodium 139, potassium 3.8, BUN 26 and creatinine 0.93. Troponin negative x 3. proBNP 2780. Triglycerides 102, cholesterol 116, LDL 46, HDL 49. TSH 0.983. Procalcitonin 0.09. Echocardiogram reveals EF of 45 to 50%, severe pulmonary hypertension with RVSP of 62 mm, biatrial enlargement, severe right ventricular dilatation, moderate mitral regurgitation, moderate aortic stenosis, moderate to severe tricuspid regurgitation. Home cardiac medications: Plavix 75 mg at bedtime, Toprol XL 25 mg twice daily, potassium chloride 20 mill equivalents 3 times daily, Xarelto 20 mg daily, rosuvastatin 20 mg at bedtime, Aldactone 25 mg daily, torsemide 50 mg twice daily. Cardiac catheterization performed 05/30/2020 revealed severe disease of the mid LAD distal stented segment, status post PCI of the mid LAD. 08/23 Patient is seen and examined. Yesterday, she was maintained on IV Lasix Physical examination: Gen: This is a 79-year-old morbidly obese female in no acute distress VS: reviewed HEENT: Head is atraumatic, normocephalic. Pupils equal, round. Sclerae is anicteric. NECK: Supple. No JVD. LUNGS: Diminished bilaterally. No intercostal retractions. HEART: Regular rate and rhythm. Systolic murmur. ABDOMEN: Soft No tenderness. EXTREMITIES: Bilateral lower extremity edema. No calf tenderness. NEUROLOGICAL: Patient is awake, alert and oriented x3 Assessment: Nonsustained ventricular tachycardia reported at [facility] Atypical chest pain, acute coronary syndrome ruled out History of coronary artery disease with prior stenting of the LAD Lower extremity PAD Paroxysmal atrial fibrillation on Xarelto History of TIA Hypertension Dyslipidemia Diabetes mellitus type 2 Plan: Continue current cardiac medications: Atorvastatin 40 mg daily, Plavix 75 mg daily, Toprol-XL 25 mg twice daily, spironolactone 25 mg daily Change Xarelto to 20 mg Resume torsemide at new dose of 40 mg twice daily oral Patient is cleared for discharge and may follow-up in the office with Dr. Love in 1 week Nurse practitioner note has been reviewed, I agree with documented findings and plan of care. Patient was seen and examined. Objective - Vital Signs Vital signs: Vital Signs Temp 98.0 F 08/23/24 09:37 Pulse 71 08/23/24 09:38 Resp 18 08/23/24 09:37 BP 127/75 08/23/24 09:37 Pulse Ox 94 L 08/23/24 09:37 FiO2 Intake & Output 08/22/24 08/23/24 08/23/24 18:59 06:59 18:59 Intake Total 360 Output Total 600 600 Balance -240 -600 Weight 144 kg Intake: Oral 360 Output: Urine 600 600 Other: Voiding Method Diaper Diaper Diaper External Catheter External Catheter External Catheter # Bowel Movements 1 - Labs CBC & Chem 7: 08/22/24 07:48 08/23/24 06:57 Labs: Abnormal Lab Results - Last 24 Hours (Table) 08/22/24 08/22/24 08/22/24 Range/Units 07:48 11:09 16:36 Carbon Dioxide (22-30) mmol/L BUN (7-17) mg/dL Glucose (74-99) mg/dL POC Glucose (mg/dL) 318 H 160 H (70-110) mg/dL Hemoglobin A1c 7.0 H (<=6.0) % 08/22/24 08/23/24 08/23/24 Range/Units 20:47 02:18 05:44 Carbon Dioxide (22-30) mmol/L BUN (7-17) mg/dL Glucose (74-99) mg/dL POC Glucose (mg/dL) 207 H 163 H 151 H (70-110) mg/dL Hemoglobin A1c (<=6.0) % 08/23/24 Range/Units 06:57 Carbon Dioxide 31 H (22-30) mmol/L BUN 27 H (7-17) mg/dL Glucose 151 H (74-99) mg/dL POC Glucose (mg/dL) (70-110) mg/dL Hemoglobin A1c (<=6.0) %
[2024-08-23] MEDS: TORSEMIDE 20 MG TAB PO SCH (16:17)
[2024-08-23 16:53] VITALS: BP 161/75; PULSE 71
== END 2024-08-23 16:45 | disposition home or self-care (01) ==
LOC: EC 23:38 → 3SCARD 08-21 02:05 → 1SOBS 08-21 23:23 → 3SCARD 08-21 23:26
PROVIDERS: ADMIT Internal Medicine; ATTEND Internal Medicine
DX: R07.89 Other chest pain (principal); I47.20 Ventricular tachycardia, unspecified; I13.0 Hypertensive heart and chronic kidney disease with heart failure and stage 1 through stage 4 chronic kidney disease, or unspecified chronic kidney disease; I50.20 Unspecified systolic (congestive) heart failure; E11.649 Type 2 diabetes mellitus with hypoglycemia without coma; E11.65 Type 2 diabetes mellitus with hyperglycemia; E11.42 Type 2 diabetes mellitus with diabetic polyneuropathy; E11.22 Type 2 diabetes mellitus with diabetic chronic kidney disease; N18.30 Chronic kidney disease, stage 3 unspecified; I25.10 Atherosclerotic heart disease of native coronary artery without angina pectoris; I25.2 Old myocardial infarction; I27.20 Pulmonary hypertension, unspecified; I48.19 Other persistent atrial fibrillation; I08.3 Combined rheumatic disorders of mitral, aortic and tricuspid valves; N39.0 Urinary tract infection, site not specified; E78.5 Hyperlipidemia, unspecified; D53.9 Nutritional anemia, unspecified; I69.354 Hemiplegia and hemiparesis following cerebral infarction affecting left non-dominant side; Z79.02 Long term (current) use of antithrombotics/antiplatelets; Z95.5 Presence of coronary angioplasty implant and graft; Z66 Do not resuscitate; Z79.01 Long term (current) use of anticoagulants; Z79.4 Long term (current) use of insulin; Z79.899 Other long term (current) drug therapy; Z87.891 Personal history of nicotine dependence; Z91.81 History of falling
CPT/HCPCS: 96376 ×3; 96372; 96374; 96375; 99285; 36415; 94760; 93005; 93225; 93306; 83880; 80061; 80053; 80048 ×2; 84443; 83735 ×2; 84484; 85025 ×2; 83036 ×2; 84145; 71045; G0378 ×3; J1940 ×3; J1650; J0696